=== PATIENT | male | born 1985 | race African-American/Black ===

== ENCOUNTER 2018-09-23 12:48 | Emergency (ER) | payer BC ==
--- NOTE | 2018-09-23 13:14 | EDPHYS ---
Physician Documentation [facility] Name: Mika Alvarado Age: 33 yrs Sex: Male : 1985 Arrival Date: 09/23/2018 Time: 12:51 Bed 24 Private MD: ED Physician Roly Dixon HPI: 09/23 13:09 This 33 yrs old Black Male presents to ER via Ambulatory with complaints of Testicular rn Problem, High Blood Pressure. 13:09 The patient presents with swelling. Onset: The symptoms/episode began/occurred at an rn unknown time. Severity of symptoms: At their worst the symptoms were mild, in the emergency department the symptoms are unchanged. The patient has not experienced similar symptoms in the past. REports first noticed swelling/mass to inferior right scrotum 1 week ago, does not hurt, no fever, no drainage, no trauma. Also reports out of BP meds. . Historical: - Allergies: 13:03 No Known Allergies; sg - Home Meds: 13:03 amlodipine 10 mg tab 1 tab once daily [Active]; sg - PMHx: 13:03 Hypertension; sg - PSHx: 13:03 None; sg - Immunization history:: Adult Immunizations up to date. - Social history:: Smoking status: Patient uses tobacco products, smokes one-half pack cigarettes per day. - Ebola Screening: : Patient negative for fever greater than or equal to 101.5 degrees Fahrenheit, and additional compatible Ebola Virus Disease symptoms Patient denies exposure to infectious person Patient denies travel to an Ebola-affected area in the 21 days before illness onset No symptoms or risks identified at this time. - Family history:: not pertinent. - Hospitalizations: : No recent hospitalization is reported. ROS: 13:09 Constitutional: Negative for fever, chills, and weight loss, Neck: Negative for injury, rn pain, and swelling, Cardiovascular: Negative for chest pain, palpitations, and edema, Respiratory: Negative for shortness of breath, cough, wheezing, and pleuritic chest pain, Abdomen/GI: Negative for abdominal pain, nausea, vomiting, diarrhea, and constipation, MS/Extremity: Negative for injury and deformity, Skin: + mass to right exterior hemiscrotum Neuro: Negative for headache, weakness, numbness, tingling, and seizure. Exam: 13:09 Constitutional: This is a well developed, well nourished patient who is awake, alert, rn and in no acute distress. Skin: Warm, dry, + 3cm linear hypertrophic skin inferior and on exterior of right hemiscrotum, no erythema Neuro: Awake and alert, GCS 15, oriented to person, place, time, and situation. Cranial nerves II-XII grossly intact. Motor strength 5/5 in all extremities. Sensory grossly intact. Cerebellar exam normal. Normal gait. Vital Signs: 13:00 BP 157 / 104; Pulse 79; Resp 18; Temp 98.3; Pulse Ox 98% on R/A; Weight 83.91 kg; sg Height 5 ft. 9 in. (175.26 cm); Pain 6/10; 13:00 Body Mass Index 27.32 (83.91 kg, 175.26 cm) sg MDM: 13:03 Patient medically screened. rn 13:09 Differential diagnosis: keloid, hypertrophic skin, HPV. Data reviewed: vital signs, rn nurses notes, and as a result, I will discharge patient. Counseling: I had a detailed discussion with the patient and/or guardian regarding: the historical points, exam findings, and any diagnostic results supporting the discharge/admit diagnosis, the need for outpatient follow up, to return to the emergency department if symptoms worsen or persist or if there are any questions or concerns that arise at home. Special discussion: I discussed with the patient/guardian in detail that at this point there is no indication for admission to the hospital. It is understood, however, that if the symptoms persist or worsen the patient needs to return immediately for re-evaluation. Based on the history and exam findings, there is no indication for further emergent testing or inpatient evaluation. I discussed with the patient/guardian the need to see the ruby rails developer for further evaluation of the symptoms. Administered Medications: No medications were administered Disposition: 09/23/18 13:13 Discharged to Home. Impression: Hypertrophic disorder of the skin, unspecified, Hypertension. - Condition is Stable. - Discharge Instructions: Hypertension. - Prescriptions for amlodipine 5 mg Oral tablet - take 1 tablet by ORAL route once daily; 60 tablet. - Medication Reconciliation Form, Thank You Letter, Antibiotic Education, Prescription Opioid Use form. - Follow up: Private Physician; When: As needed; Reason: Recheck today's complaints, Re-evaluation by your physician. - Problem is an ongoing problem. - Symptoms are unchanged. Signatures: Cornell Gandhi RN RN Roly Dixon MD MD rn Attema, Lee, RN RN la1 Corrections: (The following items were deleted from the chart) 13:03 13:03 Social history: Smoking status: Patient/guardian denies using tobacco, [facility] 13:20 13:13 09/23/2018 13:13 Discharged to Home. Impression: Hypertrophic disorder of the la1 skin, unspecified; Hypertension. Condition is Stable. Forms are Medication Reconciliation Form, Thank You Letter, Antibiotic Education, Prescription Opioid Use. Follow up: Private Physician; When: As needed; Reason: Recheck today's complaints, Re-evaluation by your physician. Problem is an ongoing problem. Symptoms are unchanged. rn
--- NOTE | 2018-09-23 13:14 | ER ---
Nurse's Notes [facility] Name: Mika Alvarado Age: 33 yrs Sex: Male : 1985 Arrival Date: 09/23/2018 Time: 12:51 Bed 24 Private MD: Diagnosis: Hypertrophic disorder of the skin, unspecified;Hypertension Presentation: 09/23 13:00 Presenting complaint: Patient states: Mass near the right testicle, denies any drainage sg or discharge, reports the area to be hard and painful, denies N/V/D/Fever, reports having High Blood pressure as well having a prescription for Amlodipine but not taking it due to lack of refills. Transition of care: patient was not received from another setting of care. Onset of symptoms was September 23, 2018. Risk Assessment: Do you want to hurt yourself or someone else? Patient reports no desire to harm self or others. Initial Sepsis Screen: Does the patient meet any 2 criteria? No. Patient's initial sepsis screen is negative. Does the patient have a suspected source of infection? No. Patient's initial sepsis screen is negative. Care prior to arrival: None. 13:00 Method Of Arrival: Ambulatory sg 13:00 Acuity: MAMADOU 3 sg Historical: - Allergies: 13:03 No Known Allergies; sg - Home Meds: 13:03 amlodipine 10 mg tab 1 tab once daily [Active]; sg - PMHx: 13:03 Hypertension; sg - PSHx: 13:03 None; sg - Immunization history:: Adult Immunizations up to date. - Social history:: Smoking status: Patient uses tobacco products, smokes one-half pack cigarettes per day. - Ebola Screening: : Patient negative for fever greater than or equal to 101.5 degrees Fahrenheit, and additional compatible Ebola Virus Disease symptoms Patient denies exposure to infectious person Patient denies travel to an Ebola-affected area in the 21 days before illness onset No symptoms or risks identified at this time. - Family history:: not pertinent. - Hospitalizations: : No recent hospitalization is reported. Screenin:11 Abuse screen: Denies threats or abuse. Denies injuries from another. Nutritional la1 screening: No deficits noted. Tuberculosis screening: No symptoms or risk factors identified. Fall Risk None identified. Assessment: 13:11 General: Appears in no apparent distress. Behavior is calm, cooperative. Pain: Denies la1 pain. Neuro: No deficits noted. Cardiovascular: Denies chest pain, shortness of breath. Respiratory: No deficits noted. : hypertrophic growth noted to right groin area without redness/pain. Vital Signs: 13:00 BP 157 / 104; Pulse 79; Resp 18; Temp 98.3; Pulse Ox 98% on R/A; Weight 83.91 kg; sg Height 5 ft. 9 in. (175.26 cm); Pain 6/10; 13:00 Body Mass Index 27.32 (83.91 kg, 175.26 cm) ED Course: 12:51 Patient arrived in ED. rg4 12:57 Zaki De RN is Primary Nurse. la1 13:00 Arm band placed on. 13:01 Triage completed. 13:03 Roly Dixon MD is Attending Physician. rn 13:12 Call light in reach. la1 13:12 No provider procedures requiring assistance completed. Patient did not have IV access la1 during this emergency room visit. Administered Medications: No medications were administered Outcome: 13:12 Discharged to home ambulatory. la1 13:12 Condition: stable 13:12 Discharge instructions given to patient, Instructed on discharge instructions, follow up and referral plans. medication usage, Demonstrated understanding of instructions, follow-up care, medications, Prescriptions given X 1. 13:13 Discharge ordered by . rn 13:20 Patient left the ED. la1 Signatures: Cornell Gandhi RN SATHYA Roly Dixon MD MD rn Attema, Lee, RN RN laMalka Kendrick rg4 Corrections: (The following items were deleted from the chart) 13:03 13:03 Social history: Smoking status: Patient/guardian denies using tobacco, [facility]
== END 2018-09-23 13:20 | disposition home or self-care (01) ==
LOC: ER 12:48
DX: L91.9 Hypertrophic disorder of the skin, unspecified (principal); I10 Essential (primary) hypertension; F17.210 Nicotine dependence, cigarettes, uncomplicated
CPT/HCPCS: 99282

== ENCOUNTER 2019-05-22 18:00 | Emergency (ER) | payer BC, SELFPAY ==
--- NOTE | 2019-05-22 19:37 | ER ---
Nurse's Notes [facility] Name: Mika Alvarado Age: 33 yrs Sex: Male : 1985 Arrival Date: 05/22/2019 Time: 18:03 Bed 28 Private MD: Diagnosis: Cutaneous abscess of face Presentation: 05/22 18:11 Presenting complaint: Patient states: forehead abscess started Tuesday. Transition of sv care: patient was not received from another setting of care. Onset of symptoms was May 20, 2019. Risk Assessment: Do you want to hurt yourself or someone else? Patient reports no desire to harm self or others. Care prior to arrival: None. 18:11 Method Of Arrival: Ambulatory sv 18:11 Acuity: MAMADOU 3 sv 20:20 Initial Sepsis Screen: Does the patient meet any 2 criteria? No. Patient's initial aj1 sepsis screen is negative. Does the patient have a suspected source of infection? No. Patient's initial sepsis screen is negative. Triage Assessment: 18:11 General: Appears in no apparent distress. comfortable, Behavior is calm, cooperative, sv appropriate for age. Neuro: Level of Consciousness is awake, alert, obeys commands, Gait is steady. Respiratory: Respiratory effort is even, unlabored, Respiratory pattern is regular, symmetrical. Derm: Abscess located on forehead has no drainage, is red, is raised. Historical: - Allergies: 18:11 No Known Allergies; sv - PMHx: 18:11 Hypertension; sv - PSHx: 18:11 None; sv - Immunization history:: Adult Immunizations up to date. - Social history:: Smoking status: unknown. - Ebola Screening: : Patient denies travel to an Ebola-affected area in the 21 days before illness onset. Screenin:25 Abuse screen: Denies threats or abuse. Denies injuries from another. Nutritional aj1 screening: No deficits noted. Tuberculosis screening: No symptoms or risk factors identified. 20:20 Fall Risk None identified. aj1 Assessment: 18:25 General: Appears in no apparent distress. comfortable, Behavior is calm, cooperative, aj1 appropriate for age. Pain: Complains of pain in forehead Pain does not radiate. Pain currently is 6 out of 10 on a pain scale. Neuro: Level of Consciousness is awake, alert, obeys commands, Oriented to person, place, time, situation. Cardiovascular: Patient's skin is warm and dry. Respiratory: Airway is patent Respiratory effort is even, unlabored, Respiratory pattern is regular, symmetrical. GI: No signs and/or symptoms were reported involving the gastrointestinal system. : No signs and/or symptoms were reported regarding the genitourinary system. EENT: No signs and/or symptoms were reported regarding the EENT system. Derm: Abscess located on forehead is half dollar sized, is red, is raised. Musculoskeletal: No signs and/or symptoms reported regarding the musculoskeletal system. Circulation, motion, and sensation intact. Vital Signs: 18:11 Pulse 96; Resp 18; Temp 99.2; Pulse Ox 100% ; Weight 97.52 kg; Height 5 ft. 8 in. sv (172.72 cm); 18:15 BP 138 / 100; aj1 19:15 BP 141 / 100; Pulse 88; Resp 18; Pulse Ox 97% on R/A; aj1 20:00 BP 140 / 99; Pulse 87; Resp 18; Pulse Ox 99% on R/A; aj1 18:11 Body Mass Index 32.69 (97.52 kg, 172.72 cm) sv ED Course: 18:03 Patient arrived in ED. mr 18:04 Kathy Barahona FNP-C [facility]. snw 18:04 Joseph Fenton MD is Attending Physician. snw 18:11 Triage completed. sv 18:12 Arm band placed on. sv 18:18 Vicki Mccabe, RN is Primary Nurse. aj1 18:25 Patient has correct armband on for positive identification. Bed in low position. Call aj1 light in reach. Side rails up X 1. 18:25 No provider procedures requiring assistance completed. aj1 20:20 IV discontinued, intact, bleeding controlled, No redness/swelling at site. Pressure aj1 dressing applied. Administered Medications: 19:45 Drug: Doxycycline 100 mg Route: PO; aj1 Outcome: 19:36 Discharge ordered by . snw 20:21 Discharged to home ambulatory. aj1 20:21 Condition: good 20:21 Discharge instructions given to patient, Instructed on discharge instructions, follow up and referral plans. medication usage, Demonstrated understanding of instructions, follow-up care, medications, Prescriptions given X 1. 20:21 Patient left the ED. aj1 Signatures: Vicki Mccabe, RN RN aj1 Nola Stacy, RN RN sv Kathy Barahona, CHEMICAL ENGRAVER-C CHEMICAL ENGRAVER-Csnw Soraya Osorio mr
--- NOTE | 2019-05-22 19:37 | EDPHYS ---
Physician Documentation [facility] Name: Mika Alvarado Age: 33 yrs Sex: Male : 1985 Arrival Date: 05/22/2019 Time: 18:03 Bed 28 Private MD: ED Physician Joseph Fenton HPI: 05/22 19:54 This 33 yrs old Black Male presents to ER via Ambulatory with complaints of Abscess. snw 19:54 The patient presents with an abscess of the forehead. Description: The affected area is snw small, localized, erythematous, swollen, tense. Onset: The symptoms/episode began/occurred suddenly, 3 day(s) ago, and became persistent. Possible cause(s): unknown. Modifying factors: the symptoms are aggravated by touching, sweating today at work. Severity of symptoms: At their worst the symptoms were moderate. The patient has not experienced similar symptoms in the past. The patient has not recently seen a physician. Historical: - Allergies: 18:11 No Known Allergies; sv - PMHx: 18:11 Hypertension; sv - PSHx: 18:11 None; sv - Immunization history:: Adult Immunizations up to date. - Social history:: Smoking status: unknown. - Ebola Screening: : Patient denies travel to an Ebola-affected area in the 21 days before illness onset. ROS: 19:53 Constitutional: Negative for fever, chills, and weight loss, Eyes: Negative for injury, snw pain, redness, and discharge, ENT: Negative for injury, pain, and discharge, Neck: Negative for injury, pain, and swelling, Cardiovascular: Negative for chest pain, palpitations, and edema, Respiratory: Negative for shortness of breath, cough, wheezing, and pleuritic chest pain, Abdomen/GI: Negative for abdominal pain, nausea, vomiting, diarrhea, and constipation, Back: Negative for injury and pain, : Negative for injury, bleeding, discharge, and swelling, MS/Extremity: Negative for injury and deformity, Skin: Negative for injury, rash, and discoloration, + sore to center of forehead Neuro: Negative for headache, weakness, numbness, tingling, and seizure, Psych: Negative for depression, anxiety, suicide ideation, homicidal ideation, and hallucinations. Exam: 19:50 Constitutional: This is a well developed, well nourished patient who is awake, alert, snw and in no acute distress. Eyes: Pupils equal round and reactive to light, extra-ocular motions intact. Lids and lashes normal. Conjunctiva and sclera are non-icteric and not injected. Cornea within normal limits. Periorbital areas with no swelling, redness, or edema. ENT: Nares patent. No nasal discharge, no septal abnormalities noted. Tympanic membranes are normal and external auditory canals are clear. Oropharynx with no redness, swelling, or masses, exudates, or evidence of obstruction, uvula midline. Mucous membranes moist. Neck: Trachea midline, no thyromegaly or masses palpated, and no cervical lymphadenopathy. Supple, full range of motion without nuchal rigidity, or vertebral point tenderness. No Meningismus. Chest/axilla: Normal chest wall appearance and motion. Nontender with no deformity. No lesions are appreciated. Cardiovascular: Regular rate and rhythm with a normal S1 and S2. No gallops, murmurs, or rubs. Normal PMI, no JVD. No pulse deficits. Respiratory: Lungs have equal breath sounds bilaterally, clear to auscultation and percussion. No rales, rhonchi or wheezes noted. No increased work of breathing, no retractions or nasal flaring. Abdomen/GI: Soft, non-tender, with normal bowel sounds. No distension or tympany. No guarding or rebound. No evidence of tenderness throughout. Back: No spinal tenderness. No costovertebral tenderness. Full range of motion. Skin: Warm, dry with normal turgor. Normal color with no rashes, no lesions, and no evidence of cellulitis. MS/ Extremity: Pulses equal, no cyanosis. Neurovascular intact. Full, normal range of motion. Neuro: Awake and alert, GCS 15, oriented to person, place, time, and situation. Cranial nerves II-XII grossly intact. Motor strength 5/5 in all extremities. Sensory grossly intact. Cerebellar exam normal. Normal gait. 19:50 Head/face: Noted is abscess to central forehead, tense. Vital Signs: 18:11 Pulse 96; Resp 18; Temp 99.2; Pulse Ox 100% ; Weight 97.52 kg; Height 5 ft. 8 in. sv (172.72 cm); 18:15 BP 138 / 100; aj1 19:15 BP 141 / 100; Pulse 88; Resp 18; Pulse Ox 97% on R/A; aj1 20:00 BP 140 / 99; Pulse 87; Resp 18; Pulse Ox 99% on R/A; aj1 18:11 Body Mass Index 32.69 (97.52 kg, 172.72 cm) sv Procedures: 19:50 I \T\ D: Incision and drainage was performed for an abscess of the central forehead snw Prepped with Betadine, Anesthetized with nothing. Incised with 18 gauge needle. Drained large amount purulent fluid. Dressing: None the patient tolerated the procedure well. MDM: 18:39 Patient medically screened. snw 19:52 Data reviewed: vital signs, nurses notes. Data interpreted: Pulse oximetry: on room air snw is 100 %. Interpretation: normal. Counseling: I had a detailed discussion with the patient and/or guardian regarding: the historical points, exam findings, and any diagnostic results supporting the discharge/admit diagnosis, the need for outpatient follow up, for definitive care, to return to the emergency department if symptoms worsen or persist or if there are any questions or concerns that arise at home. Special discussion: Based on the history and exam findings, there is no indication for further emergent testing or inpatient evaluation. I discussed with the patient/guardian the need to see the primary care provider for further evaluation of the symptoms. Administered Medications: 19:45 Drug: Doxycycline 100 mg Route: PO; aj1 Disposition: 05/22/19 19:36 Discharged to Home. Impression: Cutaneous abscess of face. - Condition is Stable. - Discharge Instructions: Skin Abscess, Wound Care, Heat Therapy. - Prescriptions for Doxycycline Hyclate 100 mg Oral Tablet - take 1 tablet by ORAL route every 12 hours; 20 tablet. - Work release form, Medication Reconciliation Form, Thank You Letter, Antibiotic Education, Prescription Opioid Use form. - Follow up: Private Physician; When: 2 - 3 days; Reason: Recheck today's complaints, Continuance of care, Re-evaluation by your physician. Follow up: Emergency Department; When: As needed; Reason: Worsening of condition. Addendum: 05/24/2019 07:26 Co-signature as Attending Physician, Joseph Fenton MD. g s Signatures: Vicki Mccabe RN RN aj1 Nola Stacy RN RN Kathy Barahona, LEONID-C THEATRICAL SCENIC DESIGNER-Csnw Joseph Fenton MD MD gs Corrections: (The following items were deleted from the chart) 05/22 20:21 19:36 05/22/2019 19:36 Discharged to Home. Impression: Cutaneous abscess of face. aj1 Condition is Stable. Forms are Medication Reconciliation Form, Thank You Letter, Antibiotic Education, Prescription Opioid Use. Follow up: Private Physician; When: 2 - 3 days; Reason: Recheck today's complaints, Continuance of care, Re-evaluation by your physician. Follow up: Emergency Department; When: As needed; Reason: Worsening of condition. snw
[2019-05-22] MEDS ORDERED: DOXYCYCLINE 100 MG CAP PO ONE (19:46)
[2019-05-22 20:58] VITALS: TEMP 99.2; O2SAT 100
== END 2019-05-22 20:21 | disposition home or self-care (01) ==
LOC: ER 18:00
PROC: 0J910ZZ Drainage of Face Subcutaneous Tissue and Fascia, Open Approach (ICD-10-PCS; principal; 2019-05-22)
DX: L02.01 Cutaneous abscess of face (principal)
CPT/HCPCS: 99283

== ENCOUNTER 2019-05-23 08:05 | Emergency (ER) | payer SELFPAY ==
[2019-05-23] MEDS ORDERED: LIDOCAINE 1% W/EPI 1:100,000 MDV 50 ML VIAL ONE (08:53)
--- NOTE | 2019-05-23 09:28 | ER ---
Nurse's Notes [facility] Name: Mika Alvarado Age: 33 yrs Sex: Male : 1985 Arrival Date: 05/23/2019 Time: 08:07 Bed 13 Private MD: Diagnosis: Cutaneous abscess of head [any part, except face]-forehead Presentation: 05/23 08:14 Presenting complaint: Patient states: i came here yesterday and had a boil lanced on my tw2 forehead, this morning i woke up with swelling to the bridge of my nose and under my eyes and i am congested. Transition of care: patient was not received from another setting of care. Onset of symptoms was May 23, 2019. Risk Assessment: Do you want to hurt yourself or someone else? Patient reports no desire to harm self or others. Initial Sepsis Screen: Does the patient meet any 2 criteria? No. Patient's initial sepsis screen is negative. Does the patient have a suspected source of infection? No. Patient's initial sepsis screen is negative. Care prior to arrival: None. 08:14 Method Of Arrival: Ambulatory tw2 08:14 Acuity: MAMADOU 3 tw2 Triage Assessment: 08:24 General: Appears in no apparent distress. Behavior is calm, cooperative, appropriate tw2 for age. Pain: Complains of pain in forehead, right eye, right cheek, nose, left cheek and left eye. EENT: swelling noted to forehead, under eyes and bridge of nose. Reports nasal congestion. Neuro: Level of Consciousness is awake, alert, obeys commands, Oriented to person, place, time, situation. Cardiovascular: Heart tones S1 S2 Patient's skin is warm and dry. Respiratory: Airway is patent Respiratory effort is even, unlabored, Respiratory pattern is regular, symmetrical, Breath sounds are clear bilaterally. Denies shortness of breath. GI: Abdomen is flat, Bowel sounds present X 4 quads. : No signs and/or symptoms were reported regarding the genitourinary system. Derm: Abscess located on forehead. Musculoskeletal: Range of motion: intact in all extremities. Historical: - Allergies: 08:24 No Known Drug Allergies; tw2 - Home Meds: 08:24 amlodipine 10 mg tab 1 tab once daily [Active]; tw2 - PMHx: 08:24 Hypertension; tw2 - PSHx: 08:24 None; tw2 - Immunization history:: Adult Immunizations. - Social history:: Smoking status: . - Ebola Screening: : Patient denies travel to an Ebola-affected area in the 21 days before illness onset. Screenin:26 Abuse screen: Denies threats or abuse. Nutritional screening: No deficits noted. tw2 Tuberculosis screening: No symptoms or risk factors identified. Fall Risk None identified. Assessment: 08:26 Reassessment: see triage assessment. tw2 09:47 Reassessment: Patient appears in no apparent distress at this time. No changes from tw2 previously documented assessment. Patient and/or family updated on plan of care and expected duration. Pain level reassessed. Patient is alert, oriented x 3, equal unlabored respirations, skin warm/dry/pink. Vital Signs: 08:15 BP 151 / 112; Pulse 89; Resp 18; Temp 98.6(O); Pulse Ox 100% on R/A; Weight 97.52 kg tw2 (R); Height 5 ft. 10 in. (177.80 cm) (R); Pain 5/10; 09:48 BP 149 / 111; Pulse 95; Resp 17; Pulse Ox 98% on R/A; tw2 08:15 Body Mass Index 30.85 (97.52 kg, 177.80 cm) tw2 ED Course: 08:07 Patient arrived in ED. as 08:10 Cheng Calderón PA is PHCP. cp 08:10 Harris Pacheco MD is Attending Physician. cp 08:14 Rachana Chiu, SATHYA is Primary Nurse. tw2 08:14 Bed in low position. Call light in reach. Adult w/ patient. Pulse ox on. NIBP on. tw2 08:15 Triage completed. tw2 08:16 Arm band placed on. tw2 09:26 Wound culture swab sent to lab. dh3 09:48 No provider procedures requiring assistance completed. Assist provider with I \T\ D: of tw2 an abscess on Set up I\T\D tray. Performed by Cheng TEMPLETON Culture sent to lab. Dressing with bandaid Patient tolerated poorly. Patient did not have IV access during this emergency room visit. Administered Medications: 08:55 Drug: Lidocaine-Epinephrine -1%: (1:100,000) 20 ml {Note: by JARETH Norris.} Volume: 20 tw2 ml; Route: Infiltration; 09:45 Drug: Bactrim - Trimethoprim-Sulfamethoxazole (40mg - 200mg / 5mL) 1 tsp Route: PO; tw2 09:46 Follow up: Response: No adverse reaction tw2 Outcome: 09:27 Discharge ordered by . zaire 09:48 Discharged to home ambulatory, with significant other. tw2 09:48 Condition: stable 09:48 Discharge instructions given to patient, significant other, Instructed on discharge instructions, follow up and referral plans. medication usage, wound care, Demonstrated understanding of instructions, follow-up care, medications, wound care, Prescriptions given X 1. 09:49 Patient left the ED. tw2 Signatures: Kaylen Palacio Corey, PA PA cp Wise, Tara, RN RN tw2 Deandra Carcamo 3
--- NOTE | 2019-05-23 09:29 | EDPHYS ---
Physician Documentation [facility] Name: Mika Alvarado Age: 33 yrs Sex: Male : 1985 Arrival Date: 05/23/2019 Time: 08:07 Bed 13 Private MD: ED Physician Harris Pacheco HPI: 05/23 08:45 This 33 yrs old Black Male presents to ER via Ambulatory with complaints of Facial cp Swelling. 08:45 The patient presents with an abscess of the forehead, the patient presents with a cp swollen area of the forehead. The patient has been recently seen at the [facility] Emergency Department, yesterday, for similar complaints partially drained after area was pierced by needle. Patient reports he was given antibiotic while in ED last night but has not been able to roller picker RX from pharmacy yet. Historical: - Allergies: 08:24 No Known Drug Allergies; tw2 - Home Meds: 08:24 amlodipine 10 mg tab 1 tab once daily [Active]; tw2 - PMHx: 08:24 Hypertension; tw2 - PSHx: 08:24 None; tw2 - Immunization history:: Adult Immunizations. - Social history:: Smoking status: . - Ebola Screening: : Patient denies travel to an Ebola-affected area in the 21 days before illness onset. ROS: 08:55 Constitutional: Negative for body aches, chills, fever, poor PO intake. cp 08:55 Eyes: Negative for injury, pain, redness, and discharge. cp 08:55 ENT: Negative for drainage from ear(s), ear pain, difficulty swallowing, difficulty handling secretions. 08:55 Cardiovascular: Negative for chest pain. 08:55 Respiratory: Negative for cough. 08:55 Abdomen/GI: Negative for abdominal pain. 08:55 Skin: Positive for swelling, of the forehead. 08:55 Neuro: Negative for altered mental status, headache. 08:55 All other systems are negative. Exam: 09:00 Constitutional: The patient appears in no acute distress, alert, awake, non-toxic, well cp developed, well nourished. 09:00 Head/face: Noted is swelling, that is mild, of the forehead, right cheek, nose and cp left cheek, tenderness, that is mild, of the forehead. 09:00 Eyes: Pupils: equal, round, and reactive to light and accomodation, Extraocular movements: intact throughout, Conjunctiva: normal, no exudate, no injection, Lids and lashes: appear normal, bilaterally. 09:00 ENT: External ear(s): are unremarkable, Nose: is normal, Mouth: Lips: moist, Oral mucosa: pink and intact, moist, Posterior pharynx: is normal, airway is patent, no erythema, no exudate. 09:00 Chest/axilla: Inspection: normal, Palpation: is normal, no crepitus, no tenderness. 09:00 Cardiovascular: Rate: normal, Rhythm: regular. 09:00 Respiratory: the patient does not display signs of respiratory distress, Respirations: normal, no use of accessory muscles, no retractions. 09:00 Abdomen/GI: Inspection: abdomen appears normal, Bowel sounds: normal, in all quadrants. 09:00 Skin: abscess, that is small, of the forehead. Vital Signs: 08:15 BP 151 / 112; Pulse 89; Resp 18; Temp 98.6(O); Pulse Ox 100% on R/A; Weight 97.52 kg tw2 (R); Height 5 ft. 10 in. (177.80 cm) (R); Pain 5/10; 09:48 BP 149 / 111; Pulse 95; Resp 17; Pulse Ox 98% on R/A; tw2 08:15 Body Mass Index 30.85 (97.52 kg, 177.80 cm) tw2 Procedures: 09:30 I \T\ D: Incision and drainage was performed for an abscess of the forehead Prepped with Betadine, Anesthetized with Incised with 18 gauge needle. Drained purulent fluid. Cultures obtained. Dressing: the patient tolerated the procedure well. MDM: 08:19 Patient medically screened. cp 08:45 Differential diagnosis: abscess, cellulitis, sepsis, cyst. cp 09:26 Data reviewed: vital signs, nurses notes, and as a result, I will discharge patient. cp 09:26 Counseling: I had a detailed discussion with the patient and/or guardian regarding: the cp historical points, exam findings, and any diagnostic results supporting the discharge/admit diagnosis, to return to the emergency department if symptoms worsen or persist or if there are any questions or concerns that arise at home. 09:26 Response to treatment: the patient's symptoms have markedly improved after treatment, cp and as a result, I will discharge patient. 05/23 08:40 Order name: Wound Culture cp 05/23 08:40 Order name: I\T\D Setup; Complete Time: 08:53 cp Administered Medications: 08:55 Drug: Lidocaine-Epinephrine -1%: (1:100,000) 20 ml {Note: by JARETH Norris.} Volume: 20 tw2 ml; Route: Infiltration; 09:45 Drug: Bactrim - Trimethoprim-Sulfamethoxazole (40mg - 200mg / 5mL) 1 tsp Route: PO; tw2 09:46 Follow up: Response: No adverse reaction tw2 Disposition: 05/24 08:52 Co-signature as Attending Physician, Harris Pacheco MD I agree with the assessment and kdr plan of care. Disposition: 05/23/19 09:27 Discharged to Home. Impression: Cutaneous abscess of head [any part, except face] - forehead. - Condition is Stable. - Discharge Instructions: Skin Abscess, Incision and Drainage, Form - Excuse from Work, School, or Physical Activity. - Prescriptions for Bactrim DS 800- 160 mg Oral Tablet - take 1 tablet by ORAL route every 12 hours for 10 days; 20 tablet. - Medication Reconciliation Form, Thank You Letter, Antibiotic Education, Prescription Opioid Use, Work release form, Family Work Release form. - Follow up: Private Physician; When: 48 Hours; Reason: Recheck today's complaints. - Problem is new. - Symptoms have improved. Signatures: Dispatcher [employer] EDKS Harris Pacheco MD MD [facility] Cheng Calderón PA PA cp Wise, Tara, RN RN tw2 Corrections: (The following items were deleted from the chart) 05/23 09:49 09:27 05/23/2019 09:27 Discharged to Home. Impression: Cutaneous abscess of head [any tw2 part, except face] - forehead. Condition is Stable. Forms are Medication Reconciliation Form, Thank You Letter, Antibiotic Education, Prescription Opioid Use. Follow up: Private Physician; When: 48 Hours; Reason: Recheck today's complaints. Problem is new. Symptoms have improved. cp
[2019-05-23] MEDS ORDERED: SULFAMETH/TRIMETHOPRIM 240 MG/30 ML UDBOT ONE (09:44)
[2019-05-23] MEDS ORDERED: SMZ./TMP. 800/160 MG TABLET ONE (09:45)
[2019-05-23 10:46] VITALS: TEMP 98.6
[2019-05-23 10:48] VITALS: BP 149/111; O2SAT 98
== END 2019-05-23 09:49 | disposition home or self-care (01) ==
LOC: ER 08:05
PROC: 0J910ZZ Drainage of Face Subcutaneous Tissue and Fascia, Open Approach (ICD-10-PCS; principal; 2019-05-23)
DX: L02.01 Cutaneous abscess of face (principal); I10 Essential (primary) hypertension
CPT/HCPCS: 87070; 87205; 99284

== ENCOUNTER 2019-11-04 18:08 | Emergency (ER) | payer SELFPAY ==
[2019-11-04] MEDS ORDERED: LIDOCAINE 1% W/EPI 1:100,000 MDV 20 ML VIAL ONE (19:33)
--- NOTE | 2019-11-04 20:10 | ER ---
Nurse's Notes [facility] Name: Mika Alvarado Age: 34 yrs Sex: Male : 1985 Arrival Date: 11/04/2019 Time: 18:08 Bed 18 Private MD: Diagnosis: Cutaneous abscess of face Presentation: 11/03 18:43 Chief complaint: Patient states: Swelling to forehead that started Ramón, reports pain ph that radiates behind L eye, chills and nausea. Coronavirus screen: The patient has NOT traveled to a country currently being monitored by the [facility] within the last 14 days. The patient has NOT had contact with any known and/or suspected case of coronavirus. Ebola Screen: No symptoms or risks identified at this time. Initial Sepsis Screen: Does the patient meet any 2 criteria? No. Patient's initial sepsis screen is negative. Does the patient have a suspected source of infection? No. Patient's initial sepsis screen is negative. Risk Assessment: Do you want to hurt yourself or someone else? Patient reports no desire to harm self or others. 18:43 Method Of Arrival: Ambulatory ph 18:43 Acuity: MAMADOU 4 ph 19:15 Onset of symptoms was November 01, 2019. wh Historical: - Allergies: 18:49 No Known Allergies; ph - PMHx: 18:49 Hypertension; ph - PSHx: 18:49 None; ph - Immunization history:: Adult Immunizations unknown. - Social history:: Smoking status: Patient reports the use of cigarette tobacco products, denies chronic smoking, but will smoke occasionally, Patient/guardian denies using alcohol, street drugs, The patient lives with family. - Family history:: not pertinent. Screenin:32 Abuse screen: Denies threats or abuse. Denies injuries from another. Nutritional wh screening: No deficits noted. Tuberculosis screening: No symptoms or risk factors identified. Fall Risk None identified. Assessment: 19:15 General: Appears in no apparent distress. Behavior is calm, cooperative, appropriate wh for age. Pain: Complains of pain in forehead. Neuro: Level of Consciousness is awake, alert, obeys commands, Oriented to person, place, time, situation, Appropriate for age. Cardiovascular: Capillary refill < 3 seconds. Respiratory: Airway is patent Respiratory effort is even, unlabored, Respiratory pattern is regular, symmetrical. GI: Abdomen is flat, non-distended. : No signs and/or symptoms were reported regarding the genitourinary system. EENT: No signs and/or symptoms were reported regarding the EENT system. Derm: abscess in forehead. Musculoskeletal: Circulation, motion, and sensation intact. Vital Signs: 18:43 BP 138 / 99; Pulse 90; Resp 18; Temp 98.7; Pulse Ox 100% on R/A; Weight 95.25 kg; ph Height 5 ft. 8 in. (172.72 cm); Pain 7/10; 19:34 BP 141 / 87; Pulse 73; Resp 18; Pulse Ox 100% on R/A; wh 18:43 Body Mass Index 31.93 (95.25 kg, 172.72 cm) ED Course: 18:08 Patient arrived in ED. ag5 18:48 Triage completed. 18:49 Arm band placed on Patient placed in an exam room. 19:13 Helena Caban MD is Attending Physician. ma2 19:31 Lj Walden is Primary Nurse. 19:33 Patient has correct armband on for positive identification. Bed in low position. Call light in reach. Side rails up X 1. Pulse ox on. NIBP on. 19:50 Assist provider with I \T\ D: of an abscess on forehead Set up I\T\D tray. Performed by Helena Caban MD Dressing with bandaid Patient tolerated well. Patient did not have IV access during this emergency room visit. Administered Medications: 20:12 Drug: [place] 5 mg-325 mg 1 tabs Route: PO; 20:24 Follow up: Response: No adverse reaction; Pain is decreased; RASS: Alert and Calm (0) Outcome: 20:09 Discharge ordered by . ma2 20:24 Discharged to home ambulatory, with family. 20:24 Condition: stable 20:24 Discharge instructions given to patient, family, Instructed on discharge instructions, follow up and referral plans. medication usage, wound care, Demonstrated understanding of instructions, follow-up care, medications, wound care, POC Prescriptions given X 2. 20:24 Patient left the ED. Signatures: Tanvi Negron RN RN Lj Walden Alzahri, Mohammad, MD MD ma2 Hubert, Ajare ag5
--- NOTE | 2019-11-04 20:10 | EDPHYS ---
Physician Documentation [facility] Name: Mika Alvarado Age: 34 yrs Sex: Male : 1985 Arrival Date: 11/04/2019 Time: 18:08 Bed 18 Private MD: ED Physician Helena Caban HPI: 11/03 20:05 This 34 yrs old Black Male presents to ER via Ambulatory with complaints of Facial ma2 Swelling. 20:05 The patient or guardian reports forehead abscess. The complaints affect the forehead. ma2 Context of injury: The problem was sustained at home, resulted from. Associated signs and symptoms: Pertinent positives: Pertinent negatives: patient denies any alcohol consumption, double vision, incontinence, nausea, vomiting, generalized weakness. Severity of symptoms: At their worst the symptoms were moderate, in the emergency department the symptoms are unchanged. The patient has experienced similar episodes in the past. Historical: - Allergies: 18:49 No Known Allergies; ph - PMHx: 18:49 Hypertension; ph - PSHx: 18:49 None; ph - Immunization history:: Adult Immunizations unknown. - Social history:: Smoking status: Patient reports the use of cigarette tobacco products, denies chronic smoking, but will smoke occasionally, Patient/guardian denies using alcohol, street drugs, The patient lives with family. - Family history:: not pertinent. ROS: 20:05 Constitutional: Negative for fever, chills, and weight loss, Eyes: Negative for injury, ma2 pain, redness, and discharge, Neck: Negative for injury, pain, and swelling, Cardiovascular: Negative for chest pain, palpitations, and edema, Respiratory: Negative for shortness of breath, cough, wheezing, and pleuritic chest pain, Abdomen/GI: Negative for abdominal pain, nausea, diarrhea, and constipation, Back: Negative for injury and pain, MS/Extremity: Negative for injury and deformity, Skin: Negative for injury, rash, and discoloration, Neuro: Negative for headache, weakness, numbness, tingling, and seizure, Psych: Negative for depression, anxiety, suicide ideation, homicidal ideation, and hallucinations. 20:05 All other systems are negative. Exam: 20:05 Constitutional: This is a well developed, well nourished patient who is awake, alert, ma2 and in no acute distress. Head/Face: abscess 1 cm on forehead, no skin induration, Normocephalic, atraumatic. Eyes: Pupils equal round and reactive to light, extra-ocular motions intact. Lids and lashes normal. Conjunctiva and sclera are non-icteric and not injected. Cornea within normal limits. Periorbital areas with no swelling, redness, or edema. ENT: Nares patent. No nasal discharge, no septal abnormalities noted. Tympanic membranes are normal and external auditory canals are clear. Oropharynx with no redness, swelling, or masses, exudates, or evidence of obstruction, uvula midline. Mucous membranes moist. Neck: Trachea midline, no thyromegaly or masses palpated, and no cervical lymphadenopathy. Supple, full range of motion without nuchal rigidity, or vertebral point tenderness. No Meningismus. Chest/axilla: Normal chest wall appearance and motion. Nontender with no deformity. No lesions are appreciated. Cardiovascular: Regular rate and rhythm with a normal S1 and S2. No gallops, murmurs, or rubs. Normal PMI, no JVD. No pulse deficits. Respiratory: Lungs have equal breath sounds bilaterally, clear to auscultation and percussion. No rales, rhonchi or wheezes noted. No increased work of breathing, no retractions or nasal flaring. Abdomen/GI: Soft, non-tender, with normal bowel sounds. No distension or tympany. No guarding or rebound. No evidence of tenderness throughout. Skin: Warm, dry with normal turgor. Normal color with no rashes, no lesions, and no evidence of cellulitis. MS/ Extremity: Pulses equal, no cyanosis. Neurovascular intact. Full, normal range of motion. Neuro: Awake and alert, GCS 15, oriented to person, place, time, and situation. Cranial nerves II-XII grossly intact. Motor strength 5/5 in all extremities. Sensory grossly intact. Cerebellar exam normal. Normal gait. Vital Signs: 18:43 BP 138 / 99; Pulse 90; Resp 18; Temp 98.7; Pulse Ox 100% on R/A; Weight 95.25 kg; ph Height 5 ft. 8 in. (172.72 cm); Pain 7/10; 19:34 BP 141 / 87; Pulse 73; Resp 18; Pulse Ox 100% on R/A; wh 18:43 Body Mass Index 31.93 (95.25 kg, 172.72 cm) ph Procedures: 20:05 I \T\ D: Incision and drainage was performed for an abscess of the forehead Prepped with ma2 alcohol, Anesthetized with 5 ml's 1% Lidocaine w/ Epi. Incised with #11 blade. Drained moderate amount purulent fluid. Dressing: the patient tolerated the procedure well. MDM: 19:13 Patient medically screened. ma2 20:05 Differential diagnosis: Contusion of Hematoma on. Data reviewed: vital signs, nurses ma2 notes. Counseling: I had a detailed discussion with the patient and/or guardian regarding: the historical points, exam findings, and any diagnostic results supporting the discharge/admit diagnosis, the presence of at least one elevated blood pressure reading (>120/80) during this emergency department visit, the need for outpatient follow up. Response to treatment: the patient's symptoms have markedly improved after treatment. Administered Medications: 20:12 Drug: [place] 5 mg-325 mg 1 tabs Route: PO; 20:24 Follow up: Response: No adverse reaction; Pain is decreased; RASS: Alert and Calm (0) Disposition: 11/04/19 20:09 Discharged to Home. Impression: Cutaneous abscess of face. - Condition is Stable. - Discharge Instructions: Skin Abscess, [id number]. - Prescriptions for Augmentin 875- 125 mg Oral Tablet - take 1 tablet by ORAL route every 12 hours for 10 days; 20 tablet. Ibuprofen 800 mg Oral Tablet - take 1 tablet by ORAL route every 12 hours As needed take with food; 20 tablet. - Medication Reconciliation Form, Thank You Letter, Antibiotic Education, Prescription Opioid Use form. - Work release form (11/04/19 20:26). la1 - Follow up: Private Physician; When: Tomorrow; Reason: Continuance of care. Signatures: Tanvi Negron RN RN ph [place], Winsy Helena Caban MD MD ma2 Zaki De-Cla1 Corrections: (The following items were deleted from the chart) 20:24 20:09 11/04/2019 20:09 Discharged to Home. Impression: Cutaneous abscess of face. Condition is Stable. Prescriptions for Augmentin 875-125 mg Oral Tablet - take 1 tablet by ORAL route every 12 hours for 10 days; 20 tablet. and Forms are Medication Reconciliation Form, Thank You Letter, Antibiotic Education, Prescription Opioid Use. Follow up: Private Physician; When: Tomorrow; Reason: Continuance of care. ma2
[2019-11-04] MEDS ORDERED: HYDROCODONE/APAP 5/325 MG TAB ONE (20:12)
[2019-11-04 20:30] VITALS: TEMP 98.7; O2SAT 100
[2019-11-04 20:32] VITALS: BP 141/87
== END 2019-11-04 20:24 | disposition home or self-care (01) ==
LOC: ER 18:08
PROC: 0J910ZZ Drainage of Face Subcutaneous Tissue and Fascia, Open Approach (ICD-10-PCS; principal; 2019-11-04)
DX: L02.01 Cutaneous abscess of face (principal); I10 Essential (primary) hypertension; Z72.0 Tobacco use
CPT/HCPCS: 99284

== ENCOUNTER 2022-01-07 14:14 | Emergency (ER) | payer SELFPAY ==
--- OUTSIDE RECORDS SUMMARY | 2022-01-07 14:16 | XMS REPORT | Continuity of Care Document ---
:1985 Author Organization [facility] t Address [address] [place] [address] [address] [place] [address] Care Team Providers Name Role Phone Remedios Nowak MD Attending Clinician Problems This patient has no known problems. Allergies, Adverse Reactions, Alerts Allergy Allergy Status Severity Reaction(s) Onset Inactive Treating Comm ents Source Name Type Date Date Clinician NO KNOWN Drug Active Univers ALLERGIE Class ity of [facility] Social History Social Habit Start Date Stop Date Quantity Comments Source [facility] to SARS-CoV-2 Not sure Un iversity [facility] (event) [facility] Smoking Status Start Date Stop Date Source Unknown if ever smoked [facility] Medications Ordered Filled Start Stop Current Ordering Indication Dosage Frequency Signature Comments Components Source Medication Medication Date Date Medication? Clinician (SIG) Name Name cloNIDine 2020- No .2mg 0.2 mg, Univ ers (CATAPRES) 02-11 Oral, ity of tablet 0.2 19:15: 18:22 ONCE, 1 Jesus as mg 00 :00 dose, [facility] 02/12/20 at Branch 1415, STAT lisinopril 0 Yes [id number] 10mg Take 1 Univers 10 mg 6-16 tablet by ity of tablet 00:00: mouth at [place] 00 bedtime. [facility] naproxen 2020-0 Yes [id number] 550mg Take 1 U nivers sodium 550 6-16 tablet by ity of mg tablet 00:00: mouth 2 [place] 00 (two) Medical times [place] daily with meals. Vital Signs Vital Name Observation Time Observation Value Comments Source Systolic blood 2020-02-12 20:30:00 130 mm[Hg] Univer sity of pressure [facility] Diastolic blood 2020-02-12 20:30:00 95 mm[Hg] Unive rsity of [facility] Heart rate 2020-02-12 20:30:00 75 /min [facility] Respiratory rate 2020-02-12 20:30:00 16 /min [facility] Oxygen saturation in 2020-02-12 20:30:00 97 /min [facility] Arterial blood by [facility] Pulse oximetry [place] Body temperature 2020-02-12 17:39:00 37 Aura [facility] Body height 2020-02-12 17:39:[address] [facility] Body weight 2020-02-12 17:39:[address] [facility] BMI 2020-02-12 17:39:00 31.75 kg/m2 [facility] Procedures Procedure Date / Time Performing Clinician Source Performed BASIC METABOLIC PANEL 2020-02-12 19:37:00 Aram Nowak [facility] (NA, K, CL, CO2, Medical Branch GLUCOSE, BUN, CREATININE, CA) TROPONIN I 2020-02-12 18:29:00 Aram Nowak [facility] CBC WITH DIFFERENTIAL 2020-02-12 18:29:00 Aram Nowak [facility] NOTICE OF PRIVACY 2020-02-12 17:26:27 Doctor Unassigned, No Univ [facility] PRACTICES Name [facility] CONSENT/REFUSAL FOR 2020-02-12 17:25:57 [facility] Name Medical [place] Encounters Start End Encounter Admission Attending Care Care Encounter Source Date/Time Date/Time Type Type Clinicians Facility Department ID 2020-02-12 2020-02-12 Emergency [facility] [id number] Univers 12:27:36 16:00:00 Aram Jones [id number] [facility] [id number] [facility] [id number] [facility] 084 Branch 2020-02-12 2020-02-12 Emergency X [facility] ERT [id number] Univers 12:27:36 12:27:36 [facility] Results Test Description Test Time Test Comments Results Result Comments Source CBC WITH DIFFERENTIAL 2020-02-12 20:26:00 Test Item Value Reference Range Interpretation Comme nts WBC (test code = 6690-2) See_Comment [A utomated message] The system which ge nerated this result transmit jacquie reference range: 4.20 - 1 0.70 10*3/?L. The reference r carlos was not used to interpr et this result as normal/abnor mal. RBC (test code = 789-8) See_Comment [Au tomated message] The system which ge nerated this result transmit jacquie reference range: 4.26 - 5 .52 10*6/?L. The reference r carlos was not used to interpr et this result as normal/abnor mal. HGB (test code = 718-7) 14.5 g/dL 12.2-16.4 HCT (test code = 4544-3) 40.6 % 38.4-49.3 MCV (test code = 787-2) 91.2 fL 81.7-95.6 MCH (test code = 785-6) 32.6 pg 26.1-32.7 MCHC (test code = 786-4) 35.7 g/dL 31.2-35 H RDW-SD (test code = 25459-7) 46.5 fL 38.5-51.6 RDW-CV (test code = 788-0) 13.8 % 12.1-15.4 PLT (test code = 777-3) See_Comment [Au tomated message] The system which ge nerated this result transmit jacquie reference range: 150 - 32 8 10*3/?L. The reference range was not used to interpret th is result as normal/abnormal . MPV (test code = 31573-0) 11.2 fL 9.8-13 IPF % (test code = 3.7 % 1.2-10.7 Platelet count measured by [id number]) fluorescence me thod. NRBC/100 WBC (test code = See_Comment [ Automated message] The 6082424877) system which ge nerated this result transmit jacquie reference range: 0.0 - 10 .0 /100 WBCs. The reference r carlos was not used to interpr et this result as normal/abnor mal. NRBC x10^3 (test code = <0.01 See_Comment [Au tomated message] The 1276448639) system which [employer] nerated this result transmit jacquie reference range: 10*3/?L. The reference range was not u sed to interpret this result as normal/abnormal . GRAN MAT (NEUT) % (test code 52.5 % = 770-8) IMM GRAN % (test code = 0.90 % 7042891558) LYMPH % (test code = 736-9) 35.5 % MONO % (test code = 5905-5) 8.6 % EOS % (test code = 713-8) 1.6 % BASO % (test code = 706-2) 0.9 % GRAN MAT x10^3(ANC) (test 3.65 10*3/uL 1.99-6.95 code = 0983545606) IMM GRAN x10^3 (test code = 0.06 10*3/uL 0-0.06 2980893144) LYMPH x10^3 (test code = 2.47 10*3/uL 1.09-3.23 731-0) MONO x10^3 (test code = 0.60 10*3/uL 0.36-1.02 742-7) EOS x10^3 (test code = 0.11 10*3/uL 0.06-0.53 711-2) BASO x10^3 (test code = 0.06 10*3/uL 0.01-0.09 704-7) GIANT PLATELETS (test code = Present See_Comment A [Automated message] The 5908-9) system which [employer] nerated this result transmit jacquie reference range: (none). The reference range was not u sed to interpret this result as normal/abnormal . Lab Interpretation (test Abnormal code = 32268-8) [facility] METABOLIC PANEL (NA, K, CL, CO2, GLUCOSE, BUN, CREATININE, CA)2020-02-12 20:01:00 Test Item Value Reference Range Interpretation Comments NA (test code = 137 mmol/L 135-145 8561483893) K (test code = 4.0 mmol/L 3.5-5 4481615754) CL (test code = 105 mmol/L 98-108 4132585525) CO2 TOTAL (test code = 26 mmol/L 23-31 1243489892) AGAP (test code = 2-16 6585900415) BUN (test code = 14 mg/dL 7-23 3504410745) GLUCOSE (test code = 106 mg/dL 70-110 7217749754) CREATININE (test code 0.88 mg/dL 0.6-1.25 = 2383610295) CALCIUM (test code = 9.3 mg/dL 8.6-10.6 7801347217) eGFR Calculation mL/min/1.73m2 (Non-) (test code = 3842635999) eGFR Calculation mL/min/1.73m2 () (test code = 5774948399) SUMIT (test code = SUMIT) Association of Glomerular Filtration Rate (GFR) and Staging of Kidney Disease* + -+ + ---+| GFR (mL/min/1.73 m2) ?| With Kidney Damage ?| ?Without Kidney Damage+ -------+ ------+ ---------+| ?>90 ?| ?Stage one ?| ? Normal ?+ --+ -+ ----+| ?60-89 ?| ?Stage two ?| ? Decreased GFR ? + -+ + ---+| ?30-59 ?| ?Stage three ?| ? Stage three ? + -+ + ---+| ?15-29 ?| ?Stage four ? | ? Stage four ?+ --+ -+ ----+| ?<15 (or dialysis) ? ?| ?Stage five ? | ? Stage five ?+ --+ -+ ----+ *Each stage assumes the associated GFR level has been in effect for at least three months. ?Stages 1 to 5, with or without kidney disease, indicate chronic kidney disease. Notes: Determination of stages one and two (with eGFR >59mL/min/1.73 m2) requires estimation of kidney damage for at least three months as defined by structural or functional abnormalities of the kidney, manifested by either:Pathological abnormalities or Markers of kidney damage (including abnormalities in the composition of the blood or urine or abnormalities in imaging tests). [facility] [id number] 19:30:00 Test Item Value Reference Range Interpretation Comments TROPONIN I (test 0.018 ng/mL See_Comment [Automated code = 1026483507) message] The system which generated this result transmitted reference range : <=0.034. The reference range was not used to interpret this result as normal/abnormal . SUMIT (test code = Equal or Less than SUMIT) 0.034 ng/ml---Normal ?Note: Cardiac troponin begins to rise 3-4 hours after the onset of ischemia. Repeat in 4-6 hours if the sample was drawn within 3-4 hours of the onset of the symptom and found normal. Between 0.035 and 0.120 ng/mL--- Borderline. Questionable myocardial injury or necrosis ? ?Note: Serial measurement may be necessary to confirm or exclude the diagnosis of myocardial injury or necrosis; Clinical correlation (symptoms, EKGs, imaging studies, and others) required; Repeat in 4-6 hours if clinically indicated. ? Equal or Higher than 0.121 ng/mL---Abnormal. Myocardial Injury or Necrosis Likely ? Biotin has been reported to cause a negative bias, interpret results relative to patient's use of biotin. ? Lab Interpretation Normal (test code = 89092-7) [facility]"
[2022-01-07] MEDS ORDERED: ONDANSETRON 4 MG/2 ML VIAL ONE ×2 (15:06→16:10)
[2022-01-07] MEDS ORDERED: FAMOTIDINE 20 MG/2 ML VIAL IV ONE (15:06)
[2022-01-07] MEDS ORDERED: NA CHLORIDE 0.9% 1,000 ML ONE (15:06)
[2022-01-07 15:20] LABS: Urine Blood Trace-intact (Negative); Urine Glucose Negative (Negative); Urine Protein 1+ (Negative)
[2022-01-07 15:29] LABS: Absolute Lymphocytes (CBC) 1.6 K/uL (0.7-4.9); Hematocrit 43.8 % (39.6-49.0); Lymphocytes % 25.9 % (15.3-44.8); RBC Red Blood Cell Count 4.61 M/uL (4.33-5.43)
[2022-01-07 15:40] LABS: Albumin 4.1 g/dL (3.4-5.0); Bilirubin Total 0.5 mg/dL (0.2-1.0); Potassium 3.8 mmol/L (3.5-5.1); Protein, Total 7.8 g/dL (6.4-8.2)
--- NOTE | 2022-01-07 16:07 | RAD REPORT ---
EXAM DESCRIPTION: CT - Abdomen Pelvis W Contrast - 01/07/2022 3:57 pm CLINICAL HISTORY: Abdominal pain/left lower quadrant pain COMPARISON: none. TECHNIQUE: Computed axial tomography of the abdomen pelvis was obtained. 100 cc Isovue-300 was admin istered intravenously. Oral contrast was not requested which limits evaluation of bowel and appendix. All CT scans are performed using dose optimization technique as appropriate and may include automated exposure control or mA/KV adjustment according to patient size. FINDINGS: The liver, spleen, pancreas, adrenal and kidneys appear unremarkable. There is no evidence of diverticulitis. The appendix is not clearly seen. No stranding within the right lower quadrant IMPRESSION: No acute abnormality is displayed.
--- NOTE | 2022-01-07 17:15 | EDPHYS ---
Physician Documentation [facility] Name: Mika Alvarado Age: 36 yrs Sex: Male : 1985 Arrival Date: 01/07/2022 Time: 14:18 Bed 23 Private MD: ED Physician Jc Koroma HPI: 01/07 14:44 This 36 yrs old Black Male presents to ER via Ambulatory with complaints of Nausea, jmm Headache. 14:44 The patient presents to the emergency department with nausea, abdominal pain. Onset: jmm The symptoms/episode began/occurred gradually, 3 day(s) ago. Possible causes: unknown. The symptoms are aggravated by nothing. The symptoms are alleviated by nothing. Associated signs and symptoms: Pertinent positives: abdominal pain, Headache. The patient has not experienced similar symptoms in the past. Patient states his children has similar symptoms. Historical: - Allergies: 14:43 No Known Allergies; iw - Home Meds: 14:43 ran out of lisinopril [Active]; iw - PMHx: 14:43 Hypertension; iw - PSHx: 14:43 None; iw - Immunization history:: Adult Immunizations up to date, Client reports receiving the 2nd dose of the Covid vaccine. - Social history:: Smoking status: Patient denies any tobacco usage or history of. Patient/guardian denies using alcohol. ROS: 14:44 Cardiovascular: Negative for chest pain, palpitations, and edema, Respiratory: Negative jmm for shortness of breath, cough, wheezing, and pleuritic chest pain. 14:44 Constitutional: Positive for body aches, chills. 14:44 Abdomen/GI: Positive for abdominal pain, nausea. 14:44 All other systems are negative. Exam: 14:44 Constitutional: This is a well developed, well nourished patient who is awake, alert, jmm and in no acute distress. Head/Face: atraumatic. Eyes: EOMI, no conjunctival erythema appreciated ENT: Moist Mucus Membranes Neck: Trachea midline, Supple Chest/axilla: Normal chest wall appearance and motion. Cardiovascular: Regular rate and rhythm. No edema appreciated Respiratory: Normal respirations, no respiratory distress appreciated 14:44 Back: Normal ROM Skin: General appearance color normal MS/ Extremity: Moves all extremities, no obvious deformities appreciated, no edema noted to the lower extremities Neuro: Awake and alert Psych: Behavior is normal, Mood is normal, Patient is cooperative and pleasant 14:44 Abdomen/GI: Inspection: abdomen appears normal, Bowel sounds: normal, Palpation: soft, mild abdominal tenderness, in the right lower quadrant and left lower quadrant. Vital Signs: 14:41 Pulse 89; Resp 16; Temp 98.6; Pulse Ox 100% on R/A; iw 16:09 BP 147 / 104; Pulse 67; Resp 18; Pulse Ox 100% on R/A; ld1 MDM: 14:44 Patient medically screened. [facility] 17:13 Data reviewed: vital signs, nurses notes. [facility] 17:13 Counseling: I had a detailed discussion with the patient and/or guardian regarding: the [facility] historical points, exam findings, and any diagnostic results supporting the discharge/admit diagnosis, lab results, radiology results, the need for outpatient follow up, to return to the emergency department if symptoms worsen or persist or if there are any questions or concerns that arise at home. ED course: Patient is alert nontoxic in appearance NAD. CT negative. Labs unremarkable. Patient has no abdominal pain on reexamination. Patient given early appendicitis return precautions. Patient states feeling much better. Patient otherwise given strict return precautions. Patient understood agrees plan of care.. 01/07 14:45 Order name: CBC with Diff; Complete Time: 15:51 [facility] 01/07 14:45 Order name: CMP; Complete Time: 15:51 [facility] 01/07 14:45 Order name: Lipase; Complete Time: 15:51 [facility] 01/07 14:47 Order name: CT Abd/Pelvis - IV Contrast Only; Complete Time: 16:07 [facility] 01/07 15:21 Order name: Urine Dipstick-Ancillary; Complete Time: 15:21 [facility] 01/07 14:45 Order name: IV Saline Lock; Complete Time: 15:12 [facility] 01/07 14:45 Order name: Labs collected and sent; Complete Time: 15:12 [facility] 01/07 14:45 Order name: Urine Dipstick-Ancillary (obtain specimen); Complete Time: 15:13 [facility] Administered Medications: 15:17 Drug: NS 0.9% 1000 ml Route: IV; Rate: 1 bolus; Site: right antecubital; ld1 15:17 Drug: Pepcid (famotidine) 20 mg Route: IVP; Site: right antecubital; ld1 15:17 Drug: Zofran (Ondansetron) 4 mg Route: IVP; Site: right antecubital; ld1 16:06 Drug: Zofran (Ondansetron) 4 mg Route: IVP; Site: right antecubital; ld1 16:06 Follow up: Response: No adverse reaction ld1 Disposition: 22:13 Co-signature as Attending Physician, Jc Koroma DO I was immediately available on-site ms3 in the Emergency Department for consultation in the care of the patient.. Disposition Summary: 01/07/22 17:14 Discharge Ordered Location: Home [facility] Condition: Stable jmm Diagnosis - Abdominal pain, unspecified jmm Followup: [facility] - With: Private Physician - When: 2 - 3 days - Reason: Recheck today's complaints, Continuance of care, Re-evaluation by your physician Discharge Instructions: - Discharge Summary Sheet jmm - Abdominal Pain, Adult jmm - Clear Liquid Diet, Adult [facility] Forms: - Medication Reconciliation Form [facility] - Thank You Letter [facility] - Antibiotic Education [facility] - Prescription Opioid Use [facility] - Work release form kj1 - Family Work Release kj1 Prescriptions: - ondansetron 4 mg Oral tablet,disintegrating - take 1 tablet by ORAL route every 4-6 hours As needed; 20 tablet; Refills: 0, [facility] Product Selection Permitted - dicyclomine 20 mg Oral Tablet - take 1 tablet by ORAL route 4 times per day As needed; 30 tablet; Refills: 0, [facility] Product Selection Permitted Signatures: Dispatcher [employer] EDEarnest Fitzpatrick PA PA Yue Amador RN RN iw Sims, Marcus, DO DO ms3 Lucinda Be RN RN ld1
--- NOTE | 2022-01-07 17:15 | ER ---
Nurse's Notes [facility] Name: Mika Alvarado Age: 36 yrs Sex: Male : 1985 Arrival Date: 01/07/2022 Time: 14:18 Bed 23 Private MD: Diagnosis: Abdominal pain, unspecified Presentation: 01/07 14:41 Chief complaint: Patient states: nausea, vomiting, headache ,low abd pain, nausea for a iw couple days. Coronavirus screen: At this time, the client does not indicate any symptoms associated with coronavirus-19. Ebola Screen: Patient negative for fever greater than or equal to 101.5 degrees Fahrenheit, and additional compatible Ebola Virus Disease symptoms Patient denies exposure to infectious person. Patient denies travel to an Ebola-affected area in the 21 days before illness onset. No symptoms or risks identified at this time. Initial Sepsis Screen: Does the patient meet any 2 criteria? No. Patient's initial sepsis screen is negative. Does the patient have a suspected source of infection? No. Patient's initial sepsis screen is negative. Risk Assessment: Do you want to hurt yourself or someone else? Patient reports no desire to harm self or others. Onset of symptoms was January 05, 2022. 14:41 Method Of Arrival: Ambulatory iw 14:41 Acuity: MAMADOU 3 iw Historical: - Allergies: 14:43 No Known Allergies; iw - Home Meds: 14:43 ran out of lisinopril [Active]; iw - PMHx: 14:43 Hypertension; iw - PSHx: 14:43 None; iw - Immunization history:: Adult Immunizations up to date, Client reports receiving the 2nd dose of the Covid vaccine. - Social history:: Smoking status: Patient denies any tobacco usage or history of. Patient/guardian denies using alcohol. Screenin:21 Abuse screen: Denies threats or abuse. Denies injuries from another. Nutritional ld1 screening: No deficits noted. Tuberculosis screening: No symptoms or risk factors identified. Fall Risk None identified. Assessment: 15:21 General: Appears in no apparent distress. comfortable, Behavior is calm, cooperative, ld1 appropriate for age. Pain: Denies pain. Neuro: Level of Consciousness is awake, alert, obeys commands, Oriented to person, place, time, situation. Cardiovascular: Capillary refill < 3 seconds Patient's skin is warm and dry. Respiratory: Airway is patent Respiratory effort is even, unlabored. GI: Abdomen is flat, non-distended, Reports nausea, vomiting. : No signs and/or symptoms were reported regarding the genitourinary system. EENT: No signs and/or symptoms were reported regarding the EENT system. Derm: No signs and/or symptoms reported regarding the dermatologic system. Musculoskeletal: No signs and/or symptoms reported regarding the musculoskeletal system. 16:09 Reassessment: Patient appears in no apparent distress at this time. Patient is alert, ld1 oriented x 3, equal unlabored respirations, skin warm/dry/pink. C/O Nausea. Notified ERP. See MAR for orders. Vital Signs: 14:41 Pulse 89; Resp 16; Temp 98.6; Pulse Ox 100% on R/A; iw 16:09 BP 147 / 104; Pulse 67; Resp 18; Pulse Ox 100% on R/A; ld1 ED Course: 14:18 Patient arrived in ED. mr 14:21 Earnest Mcelroy PA is PHCP. jmm 14:21 Jc Koroma DO is Attending Physician. jmm 14:43 Triage completed. iw 14:44 Arm band placed on. iw 14:55 Lucinda Be, RN is Primary Nurse. ld1 15:12 Inserted saline lock: 20 gauge in right antecubital area, using aseptic technique. zm Blood collected. 15:12 CBC with Diff Sent. zm 15:12 CMP Sent. zm 15:13 Lipase Sent. zm 15:21 Patient has correct armband on for positive identification. Placed in gown. Bed in low ld1 position. Call light in reach. Side rails up X2. residential monitor on. Pulse ox on. NIBP on. Door closed. Noise minimized. Warm blanket given. 15:21 No provider procedures requiring assistance completed. ld1 15:58 CT Abd/Pelvis - IV Contrast Only In Process Unspecified. EDMS 17:20 IV discontinued, intact, bleeding controlled, No redness/swelling at site. ld1 Administered Medications: 15:17 Drug: NS 0.9% 1000 ml Route: IV; Rate: 1 bolus; Site: right antecubital; ld1 15:17 Drug: Pepcid (famotidine) 20 mg Route: IVP; Site: right antecubital; ld1 15:17 Drug: Zofran (Ondansetron) 4 mg Route: IVP; Site: right antecubital; ld1 16:06 Drug: Zofran (Ondansetron) 4 mg Route: IVP; Site: right antecubital; ld1 16:06 Follow up: Response: No adverse reaction ld1 Medication: 15:21 VIS not applicable for this client. ld1 Outcome: 17:14 Discharge ordered by . gabbie 17:20 Discharged to home ambulatory, with family. ld1 17:20 Condition: stable 17:20 Discharge instructions given to patient, Instructed on discharge instructions, follow up and referral plans. Demonstrated understanding of instructions, follow-up care. 17:20 Patient left the ED. ld1 Signatures: Dispatcher [employer] EDMS Earnest Mcelroy PA PA jmm Rivera, Mary mr Williams, Irene, RN RN iw Dibbern, Lauren, RN RN ld1 Alexandra Palacio
[2022-01-07 19:36] VITALS: TEMP 98.6; O2SAT 100
[2022-01-07 19:38] VITALS: BP 147/104
== END 2022-01-07 17:20 | disposition home or self-care (01) ==
LOC: ER 14:14
DX: R10.30 Lower abdominal pain, unspecified (principal); R11.0 Nausea; R51.9 Headache, unspecified; I10 Essential (primary) hypertension
CPT/HCPCS: 36415; 74177; 80053; 81003; 83690; 85025; 96374; 96375; 99284; J2405; J3490; J7030; Q9967

== ENCOUNTER 2022-06-16 06:32 | Emergency (ER) | payer SELFPAY ==
--- OUTSIDE RECORDS SUMMARY | 2022-06-16 06:34 | XMS REPORT | Continuity of Care Document ---
:1985 Author Organization [facility] t Address [address] [place] [address] Care Team Providers Name Role Phone Aram Nowak MD Attending Clinician Problems This patient has no known problems. Allergies, Adverse Reactions, Alerts Allergy Allergy Status Severity Reaction(s) Onset Inactive Treating Comm ents Source Name Type Date Date Clinician NO KNOWN Drug Active Univers ALLERGIE Class ity of S [facility] Social History Social Habit Start Date Stop Date Quantity Comments Source [facility] Exposure to SARS-CoV-2 Not sure [facility] [place] (event) [facility] Smoking Status Start Date Stop Date Source Unknown if ever smoked [facility] Medications Ordered Filled Start Stop Current Ordering Indication Dosage Frequency Signature Comments Components Source Medication Medication Date Date Medication? Clinician (SIG) Name Name cloNIDine 2020- No .2mg 0.2 mg, Univ ers (CATAPRES) 02-11 Oral, ity of tablet 0.2 19:15: 18:22 ONCE, 1 Jesus as mg 00 :00 dose, [facility] 02/12/20 at [place] [address], STAT lisinopril 2019-0 Yes [id number] 10mg Take 1 Univers 10 mg 6-16 tablet by ity of tablet 00:00: mouth at [place] [address] bedtime. [facility] naproxen 2019-0 Yes [id number] 550mg Take 1 U nivers sodium 550 6-16 tablet by ity of mg tablet 00:00: mouth 2 [place] [address] (two) Medical times [place] daily with meals. Vital Signs Vital Name Observation Time Observation Value Comments Source Systolic blood 2020-02-12 20:30:00 130 mm[Hg] Univer sity of pressure [facility] Diastolic blood 2020-02-12 20:30:00 95 mm[Hg] [facility] rsity of pressure [facility] Heart rate 2020-02-12 20:30:00 75 /min [facility] Respiratory rate 2020-02-12 20:30:00 16 /min [facility] Oxygen saturation in 2020-02-12 20:30:00 97 /min [facility] Arterial blood by [facility] Pulse oximetry Branch Body temperature 2020-02-12 17:39:00 37 [facility]ura [facility] Body height 2020-02-12 17:39:00 175.3 cm [facility] Body weight 2020-02-12 17:39:00 97.523 kg [facility] BMI 2020-02-12 17:39:00 31.75 kg/m2 [facility] Procedures Procedure Date / Time Performing Clinician Source Performed BASIC METABOLIC PANEL 2020-02-12 19:37:00 Aram Nowak [facility] (NA, K, CL, CO2, [facility] GLUCOSE, BUN, CREATININE, CA) TROPONIN I 2020-02-12 18:29:00 Aram Nowak [facility] CBC WITH DIFFERENTIAL 2020-02-12 18:29:00 Aram Nowak [facility] NOTICE OF PRIVACY 2020-02-12 17:26:27 Doctor Unassigned, No Univ [facility] PRACTICES Name [facility] CONSENT/REFUSAL FOR 2020-02-12 17:25:57 Doctor Unassigned, [facility] [place] [place] [facility] AND TREATMENT Name [facility] Encounters Start End Encounter Admission Attending Care Care Encounter Source Date/Time Date/Time Type Type Clinicians Facility Department ID 2020-02-12 2020-02-12 Emergency [facility] [id number] Univers 12:27:36 16:00:00 Aram Jones [id number] [facility] [id number] [facility] 084 Branch 2020-02-12 2020-02-12 Emergency X [facility] ERT [id number] Univers 12:27:36 [facility] Results Test Description Test Time Test Comments Results Result Comments Source CBC WITH DIFFERENTIAL 2020-02-12 20:26:00 Test Item Value Reference Range Interpretation Comme nts WBC (test code = 6690-2) See_Comment [A utomated message] The system which [employer] nerated this result transmit jacquie reference range: [...] g/dL 31.2-35 H RDW-SD (test code = 23062-6) 46.5 fL 38.5-51.6 RDW-CV (test code = 788-0) 13.8 % 12.1-15.4 PLT (test code = 777-3) See_Comment [Au tomated message] The system which [employer] nerated this result transmit jacquie reference range: 150 - 32 8 10*3/?L. The reference range was not used to interpret th is result as normal/abnormal . MPV (test code = 70161-8) 11.2 fL 9.8-13 IPF % (test code = 3.7 % 1.2-10.7 Platelet count measured by [id number]) fluorescence me thod. NRBC/100 WBC (test code = See_Comment [ Automated message] The [id number]) system which [employer] nerated this result transmit jacquie reference range: 0.0 - 10 .0 /100 WBCs. The reference r carlos was not used to interpr et this result as normal/abnor mal. NRBC x10^3 (test code = <0.01 See_Comment [Au tomated message] The [id number]) system which [employer] nerated this result transmit jacquie reference range: 10*3/?L. The reference range was not u sed to interpret this result as normal/abnormal . GRAN MAT (NEUT) % (test code 52.5 % = 770-8) IMM GRAN % (test code = 0.90 % [id number]) LYMPH % (test code = 736-9) 35.5 % MONO % (test code = 5905-5) 8.6 % EOS % (test code = 713-8) 1.6 % BASO % (test code = 706-2) 0.9 % GRAN MAT x10^3(ANC) (test 3.65 10*3/uL 1.99-6.95 code = 2742842952) IMM GRAN x10^3 (test code = 0.06 10*3/uL 0-0.06 2623926554) LYMPH x10^3 (test code = 2.47 10*3/uL 1.09-3.23 731-0) MONO x10^3 (test code = 0.60 10*3/uL 0.36-1.02 742-7) EOS x10^3 (test code = 0.11 10*3/uL 0.06-0.53 711-2) BASO x10^3 (test code = 0.06 10*3/uL 0.01-0.09 704-7) GIANT PLATELETS (test code = Present See_Comment A [Automated message] The 5908-9) system which [employer] nerated this result transmit jacquie reference range: (none). The reference range was not u sed to interpret this result as normal/abnormal . Lab Interpretation (test Abnormal code = 99528-2) [facility] METABOLIC PANEL (NA, K, CL, CO2, GLUCOSE, BUN, CREATININE, CA)2020-02-12 20:01:00 Test Item Value Reference Range Interpretation Comments NA (test code = 137 mmol/L 135-145 0282915111) K (test code = 4.0 mmol/L 3.5-5 5409534522) CL (test code = 105 mmol/L 98-108 2360597034) CO2 TOTAL (test code = 26 mmol/L 23-31 0041248892) AGAP (test code = 2-16 7454777235) BUN (test code = 14 mg/dL 7-23 6035362285) GLUCOSE (test code = 106 mg/dL 70-110 4571870663) CREATININE (test code 0.88 mg/dL 0.6-1.25 = 4678592908) CALCIUM (test code = 9.3 mg/dL 8.6-10.6 2876223917) eGFR Calculation mL/min/1.73m2 (Non-) (test code = 9743229607) eGFR Calculation mL/min/1.73m2 () (test code = 9557146191) SUMIT (test code = SUMIT) Association of [...] or urine or abnormalities in imaging tests). [id number] 19:30[facility]00 Test Item Value Reference Range Interpretation Comments TROPONIN I (test 0.018 ng/mL See_Comment [Automated code = 9175542101) message] The system which generated this result [...] ? Lab Interpretation Normal (test code = 00562-9) [facility]"
[2022-06-16] MEDS ORDERED: KETOROLAC 30 MG/ML INJ ONE (08:06)
[2022-06-16] MEDS ORDERED: dexAMETHasone 10 MG/ML VIAL ONE (08:06)
[2022-06-16] MEDS ORDERED: DIAZEPAM 2 MG TABLET ONE (08:09)
--- NOTE | 2022-06-16 08:40 | RAD REPORT ---
EXAM DESCRIPTION: RAD - Lumbar Spine 3 Views - 06/16/2022 8:33 am CLINICAL HISTORY: PAIN COMPARISON: No comparisonsAbdomen Pelvis W Contrast dated 01/07/2022 FINDINGS: A three-view lumbar spine examination was performed. L2-L5 bodies are normal in height. Very slight wedging along the superior endplate L1 is present unch anged from December 2021. No alignment abnormality. No significant facet joint degenerative change seen. N o fracture or acute bony process seen. No disc space narrowing. No pars defects identified. No SI willis nt abnormality seen. IMPRESSION: Negative lumbar spine examination for acute or significant finding. Concerns for disc herniation, central canal abnormality or occult bone process can be further evaluat ed with outpatient MRI imaging of the lumbar spine.
--- NOTE | 2022-06-16 08:46 | ER ---
Nurse's Notes [facility] Name: Mika Alvarado Age: 36 yrs Sex: Male : 1985 Arrival Date: 06/16/2022 Time: 06:35 Bed 13 Private MD: Diagnosis: Sciatica;Low back pain Presentation: 06/16 06:52 Chief complaint: Patient states: right lower back pain radiating down right buttock to kl calf off and on x 2 weeks not relieved by Ibuprofen reports dragging right lower extremity. Coronavirus screen: Vaccine status: Patient reports being unvaccinated. Ebola Screen: Patient negative for fever greater than or equal to 101.5 degrees Fahrenheit, and additional compatible Ebola Virus Disease symptoms. Initial Sepsis Screen: Does the patient meet any 2 criteria? No. Patient's initial sepsis screen is negative. Does the patient have a suspected source of infection? No. Patient's initial sepsis screen is negative. Risk Assessment: Do you want to hurt yourself or someone else? Patient reports no desire to harm self or others. 06:52 Method Of Arrival: Ambulatory 06:52 Acuity: MAMADOU 4 kl 09:50 Onset of symptoms was June 14, 2022. Triage Assessment: 06:55 General: Appears uncomfortable, well groomed, well developed, Behavior is calm, kl cooperative. Pain: Complains of pain in right gluteus aydee Pain radiates to back of right leg Pain currently is 10 out of 10 on a pain scale. Quality of pain is described as throbbing, Noted to be grimacing, resistant to movement. EENT: No deficits noted. No signs and/or symptoms were reported regarding the EENT system. Neuro: No deficits noted. Maria Agitation-Sedation Scale (RASS):. Cardiovascular: No deficits noted. Respiratory: No deficits noted. GI: No deficits noted. No signs and/or symptoms were reported involving the gastrointestinal system. : No deficits noted. No signs and/or symptoms were reported regarding the genitourinary system. Derm: No deficits noted. No signs and/or symptoms reported regarding the dermatologic system. Historical: - Allergies: 06:55 No Known Allergies; kl - Home Meds: :55 ran out of lisinopril [Active]; kl - PMHx: 06:55 Hypertension; kl - PSHx: 06:55 None; kl - Immunization history:: Adult Immunizations not up to date. - Social history:: Smoking status: Patient reports the use of cigarette tobacco products, smokes one-half pack cigarettes per day. - Family history:: not pertinent. Screenin:50 Abuse screen: Denies threats or abuse. Denies injuries from another. Nutritional db screening: No deficits noted. Tuberculosis screening: No symptoms or risk factors identified. Fall Risk None identified. No fall in past 12 months (0 pts). No secondary diagnosis (0 pts). No IV (0 pts). Ambulatory Aid- None/Bed Rest/Nurse Assist (0 pts). Gait- Normal/Bed Rest/Wheelchair (0 pts) Mental Status- Oriented to own ability (0 pts). Total Suarez Fall Scale indicates No Risk (0-24 pts). Sepsis Screening:. Assessment: 07:33 Reassessment: Patient appears in no apparent distress at this time. No changes from db previously documented assessment. Patient and/or family updated on plan of care and expected duration. Pain level reassessed. Patient is alert, oriented x 3, equal unlabored respirations, skin warm/dry/pink. Patient complains of Right lower back pain x 2 weeks states worse x 2 days. Pain radiates to right leg. States has hypertension out of medications x 2 weeks. General: Appears in no apparent distress. comfortable, Behavior is calm, cooperative, appropriate for age, quiet. Pain: Complains of pain in lower back. 08:30 Reassessment: Patient appears in no apparent distress at this time. No changes from db previously documented assessment. Patient and/or family updated on plan of care and expected duration. Pain level reassessed. Patient is alert, oriented x 3, equal unlabored respirations, skin warm/dry/pink. 09:20 Reassessment: Patient appears in no apparent distress at this time. No changes from db previously documented assessment. Patient and/or family updated on plan of care and expected duration. Pain level reassessed. Patient is alert, oriented x 3, equal unlabored respirations, skin warm/dry/pink. Patient states feeling better. Patient states symptoms have improved. Vital Signs: 06:52 BP 163 / 108; Pulse 88; Resp 18; Temp 98.6(O); Pulse Ox 100% on R/A; Weight 102.06 kg kl (M); Height 5 ft. 9 in. (175.26 cm); Pain 10/10; 07:31 BP 153 / 110; Pulse 82; Resp 16; Pulse Ox 100% ; Pain 10/10; db 06:52 Body Mass Index 33.23 (102.06 kg, 175.26 cm) ED Course: 06:35 Patient arrived in ED. bp1 06:55 Triage completed. 07:08 Evi Gentile, RN is Primary Nurse. db 07:11 Cheng Wilkerson MD is Attending Physician. [facility] 07:50 Patient has correct armband on for positive identification. Bed in low position. Side db rails up X 1. 08:35 Lumbar Spine (3 Views) XRAY In Process Unspecified. EDMS 09:10 Arm band placed on right wrist. Patient placed in an exam room. db 09:23 No provider procedures requiring assistance completed. Patient did not have IV access db during this emergency room visit. Administered Medications: 08:15 Drug: Valium (diazepam) 5 mg Route: PO; db 09:22 Follow up: Response: No adverse reaction db 08:20 Drug: Ketorolac 60 mg Route: IM; Site: left deltoid; db 09:22 Follow up: Response: No adverse reaction db 08:20 Drug: Decadron (dexamethasone) 10 mg Route: IM; Site: right deltoid; db 09:22 Follow up: Response: No adverse reaction db Medication: 07:50 VIS not applicable for this client. db Outcome: 08:46 Discharge ordered by . zehra 09:23 Discharged to home ambulatory. db 09:23 Condition: stable 09:23 Discharge instructions given to patient, Instructed on discharge instructions, Demonstrated understanding of instructions, follow-up care, medications, Prescriptions given X 4. 09:50 Patient left the ED. Signatures: Dispatcher [employer] Letty Han RN RN kl Anderson, Corey, MD MD cha Smirch, Shelby, RN RN Francesca Morataya [facility] Evi Gentile, SATHYA RN db
--- NOTE | 2022-06-16 08:47 | EDPHYS ---
Physician Documentation [facility] Name: Mika Alvarado Age: 36 yrs Sex: Male : 1985 Arrival Date: 06/16/2022 Time: 06:35 Bed 13 Private MD: SANDOVAL Physician Cheng Wilkerson HPI: 06/16 08:39 This 36 yrs old Black Male presents to ER via Ambulatory with complaints of Low Back zehra Pain. 08:39 The patient presents with pain that is acute, and decreased range of motion. The zehra symptoms are located in the low back. The pain radiates to the lumbar area, left low back and right low back. The problem was sustained when lifting heavy object. Onset: The symptoms/episode began/occurred 3 day(s) ago. Modifying factors: The patient symptoms are alleviated by remaining still, the patient symptoms are aggravated by lifting, movement. Associated signs and symptoms: The patient has no apparent associated signs or symptoms. Severity of symptoms: At their worst the symptoms were mild, in the emergency department the symptoms are unchanged. The patient has not experienced similar symptoms in the past. Historical: - Allergies: 06:55 No Known Allergies; kl - Home Meds: 06:55 ran out of lisinopril [Active]; kl - PMHx: 06:55 Hypertension; kl - PSHx: 06:55 None; kl - Immunization history:: Adult Immunizations not up to date. - Social history:: Smoking status: Patient reports the use of cigarette tobacco products, smokes one-half pack cigarettes per day. - Family history:: not pertinent. ROS: 08:39 Constitutional: Negative for fever, chills, and weight loss, Eyes: Negative for injury, zehra pain, redness, and discharge, ENT: Negative for injury, pain, and discharge, Neck: Negative for injury, pain, and swelling, Cardiovascular: Negative for chest pain, palpitations, and edema, Respiratory: Negative for shortness of breath, cough, wheezing, and pleuritic chest pain, Abdomen/GI: Negative for abdominal pain, nausea, vomiting, diarrhea, and constipation, : Negative for injury, bleeding, discharge, and swelling, MS/Extremity: Negative for injury and deformity, Skin: Negative for injury, rash, and discoloration, Neuro: Negative for headache, weakness, numbness, tingling, and seizure, Psych: Negative for depression, anxiety, suicide ideation, homicidal ideation, and hallucinations, Allergy/Immunology: Negative for hives, rash, and allergies, Endocrine: Negative for neck swelling, polydipsia, polyuria, polyphagia, and marked weight changes, Hematologic/Lymphatic: Negative for swollen nodes, abnormal bleeding, and unusual bruising. 08:39 Back: Positive for decreased range of motion, pain at rest, pain with movement, radiated pain, of the lumbar area, left low back and right low back. Exam: 08:39 Constitutional: This is a well developed, well nourished patient who is awake, alert, zehra and in no acute distress. Head/Face: Normocephalic, atraumatic. Eyes: Pupils equal round and reactive to light, extra-ocular motions intact. Lids and lashes normal. Conjunctiva and sclera are non-icteric and not injected. Cornea within normal limits. Periorbital areas with no swelling, redness, or edema. ENT: Nares patent. No nasal discharge, no septal abnormalities noted. Tympanic membranes are normal and external auditory canals are clear. Oropharynx with no redness, swelling, or masses, exudates, or evidence of obstruction, uvula midline. Mucous membranes moist. Neck: Trachea midline, no thyromegaly or masses palpated, and no cervical lymphadenopathy. Supple, full range of motion without nuchal rigidity, or vertebral point tenderness. No Meningismus. Chest/axilla: Normal chest wall appearance and motion. Nontender with no deformity. No lesions are appreciated. Cardiovascular: Regular rate and rhythm with a normal S1 and S2. No gallops, murmurs, or rubs. Normal PMI, no JVD. No pulse deficits. Respiratory: Lungs have equal breath sounds bilaterally, clear to auscultation and percussion. No rales, rhonchi or wheezes noted. No increased work of breathing, no retractions or nasal flaring. Abdomen/GI: Soft, non-tender, with normal bowel sounds. No distension or tympany. No guarding or rebound. No evidence of tenderness throughout. Male : Normal genitalia with no discharge or lesions. Skin: Warm, dry with normal turgor. Normal color with no rashes, no lesions, and no evidence of cellulitis. MS/ Extremity: Pulses equal, no cyanosis. Neurovascular intact. Full, normal range of motion. Neuro: Awake and alert, GCS 15, oriented to person, place, time, and situation. Cranial nerves II-XII grossly intact. Motor strength 5/5 in all extremities. Sensory grossly intact. Cerebellar exam normal. Normal gait. Psych: Awake, alert, with orientation to person, place and time. Behavior, mood, and affect are within normal limits. 08:39 Back: pain, that is moderate, ROM is painful, normal spinal alignment noted, CVA tenderness, is absent, muscle spasm, is appreciated in the low back area, left low back, left mid back and right mid back. Vital Signs: 06:52 BP 163 / 108; Pulse 88; Resp 18; Temp 98.6(O); Pulse Ox 100% on R/A; Weight 102.06 kg kl (M); Height 5 ft. 9 in. (175.26 cm); Pain 10/10; 07:31 BP 153 / 110; Pulse 82; Resp 16; Pulse Ox 100% ; Pain 10/10; db 06:52 Body Mass Index 33.23 (102.06 kg, 175.26 cm) MDM: 07:11 Patient medically screened. [facility] 08:41 Differential diagnosis: strain, sciatica, Herniated disc. Data reviewed: vital signs, [facility] nurses notes, radiologic studies, plain films. Data interpreted: traffic monitor specialist: not applicable for this patient encounter. rate is 82 beats/min, Pulse oximetry: is not applicable for this patient encounter. on room air is 100 %. Test interpretation: by ED physician or midlevel provider: plain radiologic studies. Counseling: I had a detailed discussion with the patient and/or guardian regarding: the historical points, exam findings, and any diagnostic results supporting the discharge/admit diagnosis, radiology results, the need for outpatient follow up, for definitive care, a family practitioner. 06/16 07:38 Order name: Lumbar Spine (3 Views) XRAY zehra Administered Medications: 08:15 Drug: Valium (diazepam) 5 mg Route: PO; db 09:22 Follow up: Response: No adverse reaction db 08:20 Drug: Ketorolac 60 mg Route: IM; Site: left deltoid; db 09:22 Follow up: Response: No adverse reaction db 08:20 Drug: Decadron (dexamethasone) 10 mg Route: IM; Site: right deltoid; db 09:22 Follow up: Response: No adverse reaction db Disposition Summary: 06/16/22 08:46 Discharge Ordered Location: Home [facility] Problem: new zehra Symptoms: have improved zehra Condition: Stable zehra Diagnosis - Sciatica zehra - Low back pain zehra Followup: zehra - With: Private Physician - When: 2 - 3 days - Reason: Recheck today's complaints, Continuance of care, Re-evaluation by your physician Discharge Instructions: - Discharge Summary Sheet zehra - Acute Back Pain, Adult zehra - Hypertension, Adult zehra - Musculoskeletal Pain zehra - Back Injury Prevention, [id number] zehra - Hypertension, Adult, [id number] zehra Forms: - Medication Reconciliation Form [facility] - Thank You Letter [facility] - Antibiotic Education [facility] - Prescription Opioid Use [facility] Prescriptions: - Ibuprofen 600 mg Oral Tablet - take 1 tablet by ORAL route every 6 hours As needed take with food; 30 tablet; zehra Refills: 0, Product Selection Permitted - Norvasc 5 mg Oral Tablet - take 1 tablet by ORAL route once daily; 20 tablet; Refills: 0, Product zehra Selection Permitted - Medrol (Tahir) 4 mg Oral Tablets, Dose Pack - take 1 tablet by ORAL route as directed - follow package instructions; 1 zehra packet; Refills: 0, Product Selection Permitted - Cyclobenzaprine 5 mg Oral Tablet - take 1 tablet by ORAL route 3 times per day As needed; 15 tablet; Refills: 0, zehra Product Selection Permitted Signatures: Dispatcher [employer] Letty Han, RN RN Cheng Haji MD MD cha Benton, Danielle, RN RN db
[2022-06-16 09:56] VITALS: TEMP 98.6; O2SAT 100
[2022-06-16 09:57] VITALS: BP 153/110
== END 2022-06-16 09:50 | disposition home or self-care (01) ==
LOC: ER 06:32
DX: M54.30 Sciatica, unspecified side (principal); M54.50 Low back pain, unspecified
CPT/HCPCS: 72100; 96372; 99283; J1100

== ENCOUNTER 2022-07-13 08:00 | Emergency (ER) | payer SELFPAY ==
--- OUTSIDE RECORDS SUMMARY | 2022-07-13 08:07 | XMS REPORT | Continuity of Care Document ---
:1985 Author Organization [facility] t Address [address] [place] [address] Care Team Providers Name Role Phone Aram Nowak MD Attending Clinician Problems This patient has no known problems. Allergies, Adverse Reactions, Alerts Allergy Allergy Status Severity Reaction(s) Onset Inactive Treating Comm ents Source Name Type Date Date Clinician NO KNOWN Drug Active Univers ALLERGIE Class ity of S [facility] Social History Social Habit Start Date Stop Date Quantity Comments Source [facility] to [facility]-2 Not sure [facility] [place] (event) [facility] Smoking Status Start Date Stop Date Source Unknown if ever smoked Universit y [facility] Medications Ordered Filled Start Stop Current Ordering Indication Dosage Frequency Signature Comments Components Source Medication Medication Date Date Medication? Clinician (SIG) Name Name cloNIDine 2020- No .2mg 0.2 mg, Univ ers (CATAPRES) 02-11 Oral, ity of tablet 0.2 19:15: 18:22 ONCE, 1 Jesus as mg 00 :00 dose, [facility] 02/12/20 at [address] 1415, STAT lisinopril 0 Yes [id number] 10mg Take 1 Univers 10 mg 6-16 tablet by ity of tablet 00:00: mouth at [place] [address] bedtime. Medical Branch naproxen 2020-0 Yes [id number] 550mg Take 1 U nivers sodium 550 6-16 tablet by ity of mg tablet 00:00: mouth 2 [place] [address] (two) Medical times [place] daily with meals. Vital Signs Vital Name Observation Time Observation Value Comments Source Systolic blood 2020-02-12 20:30:00 130 mm[Hg] Univer sity of pressure [facility] Diastolic blood 2020-02-12 20:30:00 95 mm[Hg] [facility] Heart rate 2020-02-12 20:30:00 75 /min [facility] Respiratory rate 2020-02-12 20:30:00 16 /min [facility] Oxygen saturation in 2020-02-12 20:30:00 97 /min [facility] Arterial blood by [facility] Pulse oximetry Branch Body temperature 2020-02-12 17:39:00 37 Aura [facility] Body height 2020-02-12 17:39:00 175.3 cm [facility] Body weight 2020-02-12 17:39:00 97.523 kg [facility] BMI 2020-02-12 17:39:00 31.75 kg/m2 [facility] Procedures Procedure Date / Time Performing Clinician Source Performed BASIC METABOLIC PANEL 2020-02-12 19:37:00 Aram Nowak [facility] (NA, K, CL, CO2, [facility] GLUCOSE, BUN, CREATININE, CA) TROPONIN I 2020-02-12 18:29:00 Aram Nowak [facility] CBC WITH DIFFERENTIAL 2020-02-12 18:29:00 Aram Nowak [facility] NOTICE OF PRIVACY 2020-02-12 17:26:27 Doctor Unassigned, No Univ [facility] PRACTICES Name [facility] CONSENT/REFUSAL FOR 2020-02-12 17:25:57 Doctor Unassigned, [facility] Name [facility] Encounters Start End Encounter Admission Attending Care Care Encounter Source Date/Time Date/Time Type Type Clinicians Facility Department ID 2020-02-12 2020-02-12 Emergency [facility] [id number] Univers 12:27:36 16:00:00 Aram Jones [id number] [facility] [place] [id number] [facility] [id number] [facility] 084 Branch 2020-02-12 2020-02-12 Emergency X [facility] ERT [id number] 97 Univers 12:27:36 12:27:[facility] Results Test Description Test Time Test [...] g/dL 31.2-35 H RDW-SD (test code = 40614-3) 46.5 fL 38.5-51.6 RDW-CV (test code = 788-0) 13.8 % 12.1-15.4 PLT (test code = 777-3) See_Comment [Au tomated message] The system which ge nerated this result transmit jacquie reference range: 150 - 32 8 10*3/?L. The reference range was not used to interpret th is result as normal/abnormal . MPV (test code = 17409-1) 11.2 fL 9.8-13 IPF % (test code = 3.7 % 1.2-10.7 Platelet count measured by [id number]) fluorescence me thod. NRBC/100 WBC (test code = See_Comment [ Automated message] The 1727996556) system which [employer] nerated this result transmit jacquie reference range: 0.0 - 10 .0 /100 WBCs. The reference r carlos was not used to interpr et this result as normal/abnor mal. NRBC x10^3 (test code = <0.01 See_Comment [Au tomated message] The 2327359031) system which [employer] nerated this result transmit jacquie reference range: 10*3/?L. The reference range was not u sed to interpret this result as normal/abnormal . GRAN MAT (NEUT) % (test code 52.5 % = 770-8) IMM GRAN % (test code = 0.90 % 7999873137) LYMPH % (test code = 736-9) 35.5 % MONO % (test code = 5905-5) 8.6 % EOS % (test code = 713-8) 1.6 % BASO % (test code = 706-2) 0.9 % GRAN MAT x10^3(ANC) (test 3.65 10*3/uL 1.99-6.95 code = 8653267770) IMM GRAN x10^3 (test code = 0.06 10*3/uL 0-0.06 2804285851) LYMPH x10^3 (test code = 2.47 10*3/uL 1.09-3.23 731-0) MONO x10^3 (test code = 0.60 10*3/uL 0.36-1.02 742-7) EOS x10^3 (test code = 0.11 10*3/uL 0.06-0.53 711-2) BASO x10^3 (test code = 0.06 10*3/uL 0.01-0.09 704-7) GIANT PLATELETS (test code = Present See_Comment A [Automated message] The 5908-9) system which [employer] nerated this result transmit jacquie reference range: (none). The reference range was not u sed to interpret this result as normal/abnormal . Lab Interpretation (test Abnormal code = 34782-4) [facility] METABOLIC PANEL (NA, K, CL, CO2, GLUCOSE, BUN, CREATININE, CA)2020-02-12 20:01:00 Test Item Value Reference Range Interpretation Comments NA (test code = 137 mmol/L 135-145 5027366122) K (test code = 4.0 mmol/L 3.5-5 7507008414) CL (test code = 105 mmol/L 98-108 3375160201) CO2 TOTAL (test code = 26 mmol/L 23-31 0872835599) AGAP (test code = 2-16 8882254185) BUN (test code = 14 mg/dL 7-23 3468225421) GLUCOSE (test code = 106 mg/dL 70-110 3065619013) CREATININE (test code 0.88 mg/dL 0.6-1.25 = 4666457627) CALCIUM (test code = 9.3 mg/dL 8.6-10.6 9944099562) eGFR Calculation mL/min/1.73m2 (Non-) (test code = 9286832395) eGFR Calculation mL/min/1.73m2 () (test code = 5524971154) SUMIT (test code = SUMIT) Association of [...] or urine or abnormalities in imaging tests). [id number] 19:30:00 Test Item Value Reference Range Interpretation Comments TROPONIN I (test 0.018 ng/mL See_Comment [Automated code = 9448341118) message] The system which generated this result [...] ? Lab Interpretation Normal (test code = 00863-9) [facility]"
[2022-07-13] MEDS ORDERED: ACETAMINOPHEN 500 MG TAB ONE (08:25)
--- NOTE | 2022-07-13 09:28 | EDPHYS ---
Physician Documentation [facility] Name: Mika Alvarado Age: 36 yrs Sex: Male : 1985 Arrival Date: 07/13/2022 Time: 08:04 Bed DIS3 Private MD: ED Physician Roly Dixon HPI: 07/13 08:15 This 36 yrs old Black Male presents to ER via Ambulatory with complaints of Headache, cp Body Aches, Sore Throat. Historical: - Allergies: 08:10 No Known Allergies; jl7 - Home Meds: 08:10 amlodipine oral [Active]; jl7 - PMHx: 08:10 Hypertension; jl7 - PSHx: 08:10 None; jl7 - Immunization history:: Client reports having NOT received the Covid vaccine. - Social history:: Smoking status: Patient reports the use of cigarette tobacco products. ROS: 08:20 Constitutional: Positive for body aches, Negative for fever, poor PO intake. cp 08:20 Eyes: Negative for injury, pain, redness, and discharge. cp 08:20 ENT: Positive for rhinorrhea, sore throat, Negative for drainage from ear(s), ear pain, difficulty swallowing, difficulty handling secretions. 08:20 Cardiovascular: Negative for chest pain. 08:20 Respiratory: Positive for cough, "sounds productive", Negative for wheezing. 08:20 Abdomen/GI: Negative for abdominal pain, vomiting, diarrhea, constipation. 08:20 Neuro: Positive for headache, Negative for altered mental status, weakness. 08:20 All other systems are negative. Exam: 07/12 08:25 Constitutional: The patient appears in no acute distress, alert, awake, cp non-diaphoretic, non-toxic, well developed, well nourished. 08:25 Head/Face: Normocephalic, atraumatic. cp 08:25 Eyes: Periorbital structures: appear normal, Conjunctiva: normal, no exudate, no injection, Lids and lashes: appear normal, bilaterally. 08:25 ENT: External ear(s): are unremarkable, Ear canal(s): are normal, clear, TM's: dullness, bilaterally, Nose: is normal, Mouth: Lips: moist, Oral mucosa: moist, Posterior pharynx: Airway: no evidence of obstruction, patent, Tonsils: bilaterally enlarged, with erythema, no exudate, Uvula: midline, erythema, that is moderate, exudate, is not appreciated. 08:25 Neck: ROM/movement: is normal, is supple, without pain, no range of motions limitations, no meningismus. 08:25 Chest/axilla: Inspection: normal. 08:25 Cardiovascular: Rate: tachycardic, Rhythm: regular. 08:25 Respiratory: the patient does not display signs of respiratory distress, Respirations: normal, no use of accessory muscles, no retractions, labored breathing, is not present, Breath sounds: bronchial sounds, that are mild, are heard diffusely, decreased breath sounds, are not appreciated, stridor, is not appreciated, + upper airway congestion. wheezing: is not appreciated. 08:25 Abdomen/GI: Exam negative for discomfort, distension, guarding, Inspection: abdomen appears normal. 08:25 Neuro: Orientation: to person, place \\T\\ time. Mentation: is normal. Vital Signs: 07/13 08:08 BP 159 / 115; Pulse 112; Resp 17; Temp 98.8(O); Pulse Ox 100% ; Weight 106.59 kg; jl7 Height 5 ft. 9 in. (175.26 cm); Pain 8/10; 08:08 Body Mass Index 34.70 (106.59 kg, 175.26 cm) [facility] 08:08 Pt has not taken morning dose of HTN medication [facility] MDM: 07/12 09:27 Data reviewed: vital signs, nurses notes, lab test result(s). 09:27 Counseling: I had a detailed discussion with the patient and/or guardian regarding: the historical points, exam findings, and any diagnostic results supporting the discharge/admit diagnosis, lab results, to return to the emergency department if symptoms worsen or persist or if there are any questions or concerns that arise at home. 07/13 08:26 Patient medically screened. 07/13 08:11 Order name: Flu; Complete Time: 08:56 [facility] 07/13 08:57 Interpretation: Reviewed. 07/13 08:11 Order name: Strep; Complete Time: 08:56 [facility] 07/13 08:42 Order name: Throat Culture EDMS Administered Medications: 08:24 Drug: Tylenol 1000 mg Route: PO; 7 09:25 CANCELLED (Physician Discretion): amLODIPine 10 mg PO once cp Disposition: 10:26 Co-signature as Attending Physician, Roly Dixon MD. rn Disposition Summary: 07/13/22 09:27 Discharge Ordered Location: Home cp Problem: new cp Symptoms: have improved cp Condition: Stable cp Diagnosis - Acute tonsillitis, unspecified cp - Hypertensive heart disease without heart failure cp - Acute upper respiratory infection, unspecified cp Followup: cp - With: Private Physician - When: 2 - 3 days - Reason: Worsening of condition Discharge Instructions: - Discharge Summary Sheet cp - Hypertension, Adult cp - Tonsillitis cp - Upper Respiratory Infection, Adult cp - Cool Mist Vaporizer cp - Form - Excuse from Work, School, or Physical Activity cp Forms: - Medication Reconciliation Form cp - Thank You Letter cp - Antibiotic Education cp - Prescription Opioid Use cp - Work release form iw Prescriptions: - Bromfed DM 2-30-10 mg/5 mL Oral syrup - take 10 milliliter by ORAL route every 6 hours; 180 milliliter; Refills: 0, cp Product Selection Permitted - amlodipine 5 mg Oral tablet - take 1 tablet by ORAL route once daily; 30 tablet; Refills: 0, Product cp Selection Permitted - Zithromax Z-Tahir 250 mg Oral Tablet - take 1 tablet by ORAL route as directed for 5 days Day 1 - take two (2) tablets cp one time. Day 2, 3, 4 , 5 take one (1) tablet once daily.; 6 tablet; Refills: 0, Product Selection Permitted Signatures: Dispatcher [employer] EDRoly Watt MD MD rn Page, Corey, PA PA Rafael Hankins RN RN jl7 Corrections: (The following items were deleted from the chart) 09:25 09:25 amLODIPine 10 mg PO once ordered. cp cp
--- NOTE | 2022-07-13 09:28 | ER ---
Nurse's Notes [facility] Name: Mika Alvarado Age: 36 yrs Sex: Male : 1985 Arrival Date: 07/13/2022 Time: 08:04 Bed DIS3 Private MD: Diagnosis: Acute tonsillitis, unspecified;Hypertensive heart disease without heart failure;Acute upper respiratory infection, unspecified Presentation: 07/13 08:08 Chief complaint: Patient states: Sore throat, PLAZA, body aches since Tuesday. jl7 Coronavirus screen: headache, sore throat, Client presents with at least one sign or symptom that may indicate coronavirus-19. Ebola Screen: No symptoms or risks identified at this time. Initial Sepsis Screen: Does the patient meet any 2 criteria? No. Patient's initial sepsis screen is negative. Does the patient have a suspected source of infection? No. Patient's initial sepsis screen is negative. Risk Assessment: Do you want to hurt yourself or someone else? Patient reports no desire to harm self or others. Onset of symptoms was July 10, 2022. 08:08 Method Of Arrival: Ambulatory [facility] 08:08 Acuity: MAMADOU 4 jl7 Triage Assessment: 08:10 Headache History: The patient has had previous headaches and this one is similar to jl7 previous episodes. General: Appears in no apparent distress. uncomfortable, Behavior is calm, cooperative, appropriate for age. Pain: Complains of pain in PLAZA Pain currently is 8 out of 10 on a pain scale. Pain began 2-3 days ago. Also complains of no other associated symptoms. Neuro: Level of Consciousness is awake, alert, obeys commands, Oriented to person, place, time, situation. Historical: - Allergies: 08:10 No Known Allergies; jl7 - Home Meds: 08:10 amlodipine oral [Active]; jl7 - PMHx: 08:10 Hypertension; jl7 - PSHx: 08:10 None; jl7 - Immunization history:: Client reports having NOT received the Covid vaccine. - Social history:: Smoking status: Patient reports the use of cigarette tobacco products. Screenin:30 Abuse screen: Denies threats or abuse. Denies injuries from another. Nutritional jl7 screening: No deficits noted. Tuberculosis screening: No symptoms or risk factors identified. Fall Risk None identified. Vital Signs: 08:08 BP 159 / 115; Pulse 112; Resp 17; Temp 98.8(O); Pulse Ox 100% ; Weight 106.59 kg; jl7 Height 5 ft. 9 in. (175.26 cm); Pain 8/10; 08:08 Body Mass Index 34.70 (106.59 kg, 175.26 cm) jl7 08:08 Pt has not taken morning dose of HTN medication jl7 ED Course: 08:04 Patient arrived in ED. rg4 08:06 Cheng Calderón PA is PHCP. cp 08:06 Roly Dixon MD is Attending Physician. cp 08:10 Triage completed. jl7 08:10 Arm band placed on right wrist. jl7 08:30 Patient has correct armband on for positive identification. jl7 08:30 Flu and/or RSV swab sent to lab. Strep swab sent to lab. jl7 08:31 Rafael Silva, SATHYA is Primary Nurse. jl7 09:45 No provider procedures requiring assistance completed. Patient did not have IV access jl7 during this emergency room visit. Administered Medications: 08:24 Drug: Tylenol 1000 mg Route: PO; jl7 09:25 CANCELLED (Physician Discretion): amLODIPine 10 mg PO once cp Medication: 13:33 VIS not applicable for this client. jl7 Outcome: 09:27 Discharge ordered by . cp 09:43 Patient left the ED. iw Signatures: Yue Palafox, RN RN iw Cheng Calderón PA PA cp Garcia, Rubi rg4 Rafael Silva RN RN jl7
[2022-07-13 09:48] VITALS: BP 159/115; TEMP 98.8; O2SAT 100
== END 2022-07-13 09:43 | disposition home or self-care (01) ==
LOC: ER 08:00
DX: J03.90 Acute tonsillitis, unspecified (principal); J06.9 Acute upper respiratory infection, unspecified; I11.9 Hypertensive heart disease without heart failure; I10 Essential (primary) hypertension; F17.210 Nicotine dependence, cigarettes, uncomplicated
CPT/HCPCS: 87070; 87081; 87804; 99283

== ENCOUNTER 2022-09-20 10:28 | Emergency (ER) | payer SELFPAY ==
--- OUTSIDE RECORDS SUMMARY | 2022-09-20 10:32 | XMS REPORT | Continuity of Care Document ---
:1985 Author Organization [facility] t Address [address] [place] [address] Care Team Providers Name Role Phone Aram Nowak MD Attending Clinician Problems This patient has no known problems. Allergies, Adverse Reactions, Alerts Allergy Allergy Status Severity Reaction(s) Onset Inactive Treating Comm ents Source Name Type Date Date Clinician NO KNOWN Drug Active Univers ALLERGIE Class ity of S [facility] Social History Social Habit Start Date Stop Date Quantity Comments Source [facility] to [facility]2 Not sure [facility] [place] (event) [facility] Smoking Status Start Date Stop Date Source Unknown if ever smoked Universit y [facility] Medications Ordered Filled Start Stop Current Ordering Indication Dosage Frequency Signature Comments Components Source Medication Medication Date Date Medication? Clinician (SIG) Name Name cloNIDine 2020- No .2mg 0.2 mg, Univ ers (CATAPRES) 02-11 Oral, ity of tablet 0.2 19:15: 18:22 ONCE, 1 Jesus as mg 00 :00 dose, [facility] 02/12/20 at [address] 1415, STAT lisinopril 0 Yes [id number] 10mg Take 1 Univers 10 mg 6-16 tablet by ity of tablet 00:00: mouth at [place] [address] bedtime. Medical Branch naproxen 2020-0 Yes [id number] 550mg Take 1 U nivers sodium 550 6-16 tablet by ity of mg tablet 00:00: mouth 2 [place] [address] (two) Medical times [place] daily with meals. Vital Signs Vital Name Observation Time Observation Value Comments Source Systolic blood 2020-02-12 20:30:00 130 mm[Hg] Univer sity of pressure [facility] Diastolic blood 2020-02-12 20:30:00 95 mm[Hg] [facility] of pressure [facility] Heart rate 2020-02-12 20:30:00 75 /min [facility] Respiratory rate 2020-02-12 20:30:00 16 /min [facility] Oxygen saturation in 2020-02-12 20:30:00 97 /min [facility] Arterial blood by [facility] Pulse oximetry Branch Body temperature 2020-02-12 17:39:00 37 Aura [facility] Body height 2020-02-12 17:39:00 175.3 cm [facility] Body weight 2020-02-12 17:39:00 97.523 kg [facility] BMI 2020-02-12 17:39:00 31.75 kg/m2 [facility] Procedures Procedure Date / Time Performing Clinician Source Performed BASIC METABOLIC PANEL 2020-02-12 19:37:00 Aram Nowak [facility] (NA, K, CL, CO2, [facility] GLUCOSE, BUN, CREATININE, CA) TROPONIN I 2020-02-12 18:29:00 Aram Nowak [facility] CBC WITH DIFFERENTIAL 2020-02-12 18:29:00 Aram Nowak [facility] NOTICE OF PRIVACY 2020-02-12 17:26:27 Doctor Unassigned, No Univ [facility] PRACTICES Name [facility] CONSENT/REFUSAL FOR 2020-02-12 17:25:57 [facility]igned, [facility] Name [facility] Encounters Start End Encounter Admission Attending Care Care Encounter Source Date/Time Date/Time Type Type Clinicians Facility Department ID 2020-02-12 2020-02-12 Emergency [facility] [id number] Univers 12:27:36 16:00:00 Aram Jones [id number] [facility] [place] [id number] [facility] [id number] Medi [facility] 084 Branch 2020-02-12 2020-02-12 Emergency X [facility] ERT [id number] Univers 12:27:36 12:27:36 [facility] Results Test Description Test Time Test Comments [...] system which ge nerated this result transmit jacqiue reference range: 4.26 - 5 .52 10*6/?L. [...] g/dL 31.2-35 H RDW-SD (test code = 06116-7) 46.5 fL 38.5-51.6 RDW-CV (test code = 788-0) 13.8 % 12.1-15.4 PLT (test code = 777-3) See_Comment [Au tomated message] The system which ge nerated this result transmit jacquie reference range: 150 - 32 8 10*3/?L. The reference range was not used to interpret th is result as normal/abnormal . MPV (test code = 26840-0) 11.2 fL 9.8-13 IPF % (test code = 3.7 % 1.2-10.7 Platelet count measured by 9646540822) fluorescence me thod. NRBC/100 WBC (test code = See_Comment [ Automated message] The 6386047588) system which [employer] nerated this result transmit jacquie reference range: 0.0 - 10 .0 /100 WBCs. The reference r carlos was not used to interpr et this result as normal/abnor mal. NRBC x10^3 (test code = <0.01 See_Comment [Au tomated message] The 5019498546) system which [employer] nerated this result transmit jacquie reference range: 10*3/?L. The reference range was not u sed to interpret this result as normal/abnormal . GRAN MAT (NEUT) % (test code 52.5 % = 770-8) IMM GRAN % (test code = 0.90 % 6398945739) LYMPH % (test code = 736-9) 35.5 % MONO % (test code = 5905-5) 8.6 % EOS % (test code = 713-8) 1.6 % BASO % (test code = 706-2) 0.9 % GRAN MAT x10^3(ANC) (test 3.65 10*3/uL 1.99-6.95 code = 8512021401) IMM GRAN x10^3 (test code = 0.06 10*3/uL 0-0.06 0782705421) LYMPH x10^3 (test code = 2.47 10*3/uL 1.09-3.23 731-0) MONO x10^3 (test code = 0.60 10*3/uL 0.36-1.02 742-7) EOS x10^3 (test code = 0.11 10*3/uL 0.06-0.53 711-2) BASO x10^3 (test code = 0.06 10*3/uL 0.01-0.09 704-7) GIANT PLATELETS (test code = Present See_Comment A [Automated message] The 5908-9) system which [employer] nerated this result transmit jacquie reference range: (none). The reference range was not u sed to interpret this result as normal/abnormal . Lab Interpretation (test Abnormal code = 16679-9) [facility] METABOLIC PANEL (NA, K, CL, CO2, GLUCOSE, BUN, CREATININE, CA)2020-02-12 20:01:00 Test Item Value Reference Range Interpretation Comments NA (test code = 137 mmol/L 135-145 2890657811) K (test code = 4.0 mmol/L 3.5-5 1276305970) CL (test code = 105 mmol/L 98-108 5683906095) CO2 TOTAL (test code = 26 mmol/L 23-31 2373957299) AGAP (test code = 2-16 3872275379) BUN (test code = 14 mg/dL 7-23 7603774079) GLUCOSE (test code = 106 mg/dL 70-110 2967274854) CREATININE (test code 0.88 mg/dL 0.6-1.25 = 1610795733) CALCIUM (test code = 9.3 mg/dL 8.6-10.6 3669316669) eGFR Calculation mL/min/1.73m2 (Non-) (test code = 9409716414) eGFR Calculation mL/min/1.73m2 () (test code = 3422150390) SUMIT (test code = SUMIT) Association of [...] abnormalities in imaging tests). [id number] 19:30:00 Test Item Value Reference Range Interpretation Comments TROPONIN I (test 0.018 ng/mL See_Comment [Automated code = 5297099318) message] The system which generated this result [...] ? Lab Interpretation Normal (test code = 79090-5) [facility]"
--- NOTE | 2022-09-20 10:48 | EDPHYS ---
Physician Documentation [facility] Name: Mika Alvarado Age: 37 yrs Sex: Male : 1985 Arrival Date: 09/20/2022 Time: 10:30 Bed 11 Private MD: ED Physician Jc Koroma HPI: 09/20 10:53 This 37 yrs old Black Male presents to ER via Ambulatory with complaints of Back Pain, snw Leg Pain. 10:53 The patient presents with pain that is acute, with no known mechanism of injury. Onset: snw The symptoms/episode began/occurred acutely. The pain radiates to the right gluteal fold, right hamstring, posterior aspect of right knee and right calf. The problem was sustained from unknown cause. The patient has experienced a previous episode. Historical: - Allergies: 10:40 No Known Allergies; ss - Home Meds: 10:40 amlodipine 5 mg oral tab 1 tab once daily [Active]; ss - PMHx: 10:40 Hypertension; ss - PSHx: 10:40 None; ss - Immunization history:: Client reports having NOT received the Covid vaccine. - Social history:: Smoking status: Patient reports the use of cigarette tobacco products, smokes one-half pack cigarettes per day. ROS: 10:52 Constitutional: Negative for fever, chills, and weight loss, Eyes: Negative for injury, snw pain, redness, and discharge, ENT: Negative for injury, pain, and discharge, Neck: Negative for injury, pain, and swelling, Cardiovascular: Negative for chest pain, palpitations, and edema, Respiratory: Negative for shortness of breath, cough, wheezing, and pleuritic chest pain, Abdomen/GI: Negative for abdominal pain, nausea, vomiting, diarrhea, and constipation, : Negative for injury, bleeding, discharge, and swelling. 10:52 Back: Positive for pain at rest, pain with movement, radiated pain. Exam: 10:49 Constitutional: This is a well developed, well nourished patient who is awake, alert, snw and in no acute distress. Head/Face: Normocephalic, atraumatic. Eyes: Pupils equal round and reactive to light, extra-ocular motions intact. Lids and lashes normal. Conjunctiva and sclera are non-icteric and not injected. Cornea within normal limits. Periorbital areas with no swelling, redness, or edema. ENT: Nares patent. No nasal discharge, no septal abnormalities noted. Tympanic membranes are normal and external auditory canals are clear. Oropharynx with no redness, swelling, or masses, exudates, or evidence of obstruction, uvula midline. Mucous membranes moist. Neck: Trachea midline, no thyromegaly or masses palpated, and no cervical lymphadenopathy. Supple, full range of motion without nuchal rigidity, or vertebral point tenderness. No Meningismus. Chest/axilla: Normal chest wall appearance and motion. Nontender with no deformity. No lesions are appreciated. Cardiovascular: Regular rate and rhythm with a normal S1 and S2. No gallops, murmurs, or rubs. Normal PMI, no JVD. No pulse deficits. Respiratory: Lungs have equal breath sounds bilaterally, clear to auscultation and percussion. No rales, rhonchi or wheezes noted. No increased work of breathing, no retractions or nasal flaring. Abdomen/GI: Soft, non-tender, with normal bowel sounds. No distension or tympany. No guarding or rebound. No evidence of tenderness throughout. Skin: Warm, dry with normal turgor. Normal color with no rashes, no lesions, and no evidence of cellulitis. Neuro: Awake and alert, GCS 15, oriented to person, place, time, and situation. Cranial nerves II-XII grossly intact. Motor strength 5/5 in all extremities. Sensory grossly intact. Cerebellar exam normal. Normal gait. Psych: Awake, alert, with orientation to person, place and time. Behavior, mood, and affect are within normal limits. 10:49 Back: pain, that is moderate, ROM is painful. 10:49 Musculoskeletal/extremity: Extremities: grossly normal except: noted in the right gluteal fold, right hamstring, posterior aspect of right knee and right calf: ROM: limited active range of motion due to pain, limited passive range of motion due to pain, Circulation is intact in all extremities. Sensation intact. 10:49 Neuro: Orientation: is normal, Mentation: is normal, Memory: is normal, Sensation: zinging sensation down right buttock and right posterior leg. Vital Signs: 10:38 BP 154 / 116; Pulse 93; Resp 15; Temp 98.8(TE); Pulse Ox 100% on R/A; Weight 61.23 kg; ss Height 5 ft. 9 in. (175.26 cm); Pain 1010; 10:38 Body Mass Index 19.94 (61.23 kg, 175.26 cm) ss MDM: 10:41 Patient medically screened. snw 10:52 Data reviewed: vital signs, nurses notes. Care significantly affected by the following snw chronic conditions: Hypertension. Counseling: I had a detailed discussion with the patient and/or guardian regarding: the historical points, exam findings, and any diagnostic results supporting the discharge/admit diagnosis, the presence of at least one elevated blood pressure reading (>120/80) during this emergency department visit, the need for outpatient follow up, to return to the emergency department if symptoms worsen or persist or if there are any questions or concerns that arise at home. Special discussion: I have referred the patient to see his PCP for further evaluation of high blood pressure. Based on the history and exam findings, there is no indication for further emergent testing or inpatient evaluation. I discussed with the patient/guardian the need to see the primary care provider for further evaluation of the symptoms. Administered Medications: 11:03 Drug: [place] (HYDROcodone-acetaminophen) 5 mg-325 mg 1 tabs Route: PO; iw 11:03 Drug: predniSONE 40 mg Route: PO; iw 11:03 Drug: Pepcid (famotidine) 20 mg Route: PO; iw Disposition: 11:23 Co-signature as Attending Physician, Jc Koroma DO . ms3 11:23 I was immediately available on-site in the Emergency Department for consultation in the ms3 care of the patient. Disposition Summary: 09/20/22 10:47 Discharge Ordered Location: Home snw Condition: Stable snw Diagnosis - Radiculopathy, lumbar region snw Followup: snw - With: Emergency Department - When: As needed - Reason: Worsening of condition Followup: snw - With: Private Physician - When: 2 - 3 days - Reason: Recheck today's complaints, Continuance of care, Re-evaluation by your physician Discharge Instructions: - Discharge Summary Sheet snw - Hypertension, Adult snw - Radicular Pain snw - Form - Blood Pressure Record Sheet snw Forms: - Medication Reconciliation Form snw - Thank You Letter snw - Antibiotic Education snw - Prescription Opioid Use snw - Work release form snw Prescriptions: - Prednisone 20 mg Oral Tablet - take 2 tablets by ORAL route once daily for 5 days; 10 tablet; Refills: 0, snw Product Selection Permitted - orphenadrine citrate 100 mg Oral Tablet Sustained Release - take 1 tablet by ORAL route 2 times per day As needed; 20 tablet; Refills: 0, snw Product Selection Permitted - Pepcid 20 mg Oral Tablet - take 1 tablet by ORAL route once daily; 20 tablet; Refills: 0, Product snw Selection Permitted Signatures: Kathy Merrill, CNC MACHINIST 2ND SHIFT-C CNC MACHINIST 2ND SHIFT-Csnw Yue Palafox, RN RN iw Toña Conway RN RN ss Jc Koroma DO DO ms3
--- NOTE | 2022-09-20 10:48 | ER ---
Nurse's Notes [facility] Name: Mika Alvarado Age: 37 yrs Sex: Male : 1985 Arrival Date: 09/20/2022 Time: 10:30 Bed 11 Private MD: Diagnosis: Radiculopathy, lumbar region Presentation: 09/20 10:38 Chief complaint: Patient states: pain to R buttock that radiates down R leg that began ss yesterday. HX of sciatica. Coronavirus screen: Client denies travel out of the [place] in the last 14 days. Ebola Screen: Patient denies exposure to infectious person. Patient denies travel to an Ebola-affected area in the 21 days before illness onset. Initial Sepsis Screen: Does the patient meet any 2 criteria? No. Patient's initial sepsis screen is negative. Does the patient have a suspected source of infection? No. Patient's initial sepsis screen is negative. Risk Assessment: Do you want to hurt yourself or someone else? Patient reports no desire to harm self or others. Onset of symptoms was September 19, 2022. 10:38 Method Of Arrival: Ambulatory ss 10:38 Acuity: MAMADOU 4 ss Historical: - Allergies: 10:40 No Known Allergies; ss - Home Meds: 10:40 amlodipine 5 mg oral tab 1 tab once daily [Active]; ss - PMHx: 10:40 Hypertension; ss - PSHx: 10:40 None; ss - Immunization history:: Client reports having NOT received the Covid vaccine. - Social history:: Smoking status: Patient reports the use of cigarette tobacco products, smokes one-half pack cigarettes per day. Vital Signs: 10:38 BP 154 / 116; Pulse 93; Resp 15; Temp 98.8(TE); Pulse Ox 100% on R/A; Weight 61.23 kg; ss Height 5 ft. 9 in. (175.26 cm); Pain 1010; 10:38 Body Mass Index 19.94 (61.23 kg, 175.26 cm) ED Course: 10:30 Patient arrived in ED. mr 10:39 Kathy Merrill FNP-C is [facility]. snw 10:39 Jc Koroma DO is Attending Physician. snw 10:39 Triage completed. ss 10:40 Arm band placed on right wrist. ss 10:48 Yue Palafox, RN is Primary Nurse. iw Administered Medications: 11:03 Drug: [place] (HYDROcodone-acetaminophen) 5 mg-325 mg 1 tabs Route: PO; iw 11:03 Drug: predniSONE 40 mg Route: PO; iw 11:03 Drug: Pepcid (famotidine) 20 mg Route: PO; iw Outcome: 10:47 Discharge ordered by . sntaj 11:12 Patient left the ED. iw Signatures: Kathy Merrill, MARIELLAC TRACTOR DISTRIBUTOR-Csnw Soraya Osorio mr Yue Palafox, RN RN iw Toña Conway, SATHYA RN ss
[2022-09-20] MEDS ORDERED: FAMOTIDINE 20 MG TAB ONE (11:00)
[2022-09-20] MEDS ORDERED: predniSONE 20 MG TAB ONE (11:00)
[2022-09-20] MEDS ORDERED: HYDROCODONE/APAP 5/325 MG TAB ONE (11:01)
[2022-09-20 12:04] VITALS: BP 154/116; TEMP 98.8; O2SAT 100
== END 2022-09-20 11:12 | disposition home or self-care (01) ==
LOC: ER 10:28
DX: M54.16 Radiculopathy, lumbar region (principal)
CPT/HCPCS: 99282; J7512

== ENCOUNTER 2022-09-26 19:38 | Emergency (ER) | payer SELFPAY ==
--- OUTSIDE RECORDS SUMMARY | 2022-09-26 19:40 | XMS REPORT | Continuity of Care Document ---
:1985 Author Organization [facility] t Address [address] [place] [address] Care Team Providers Name Role Phone Aram Nowak MD Attending Clinician Problems This patient has no known problems. Allergies, Adverse Reactions, Alerts Allergy Allergy Status Severity Reaction(s) Onset Inactive Treating Comm ents Source Name Type Date Date Clinician NO KNOWN Drug Active Univers ALLERGIE Class ity of S [facility] Social History Social Habit Start Date Stop Date Quantity Comments Source [facility] to SARS-[facility]2 Not sure [facility] [place] [facility] Smoking Status Start Date Stop Date Source Unknown if ever smoked Universit y [facility] Medications Ordered Filled Start Stop Current Ordering Indication Dosage Frequency Signature Comments Components Source Medication Medication Date Date Medication? Clinician (SIG) Name Name cloNIDine 2020- No .2mg 0.2 mg, Univ ers (CATAPRES) 02-11 Oral, ity of tablet 0.2 19:15: 18:22 ONCE, 1 Jesus as mg 00 :00 [facility] at [facility] 1415, STAT lisinopril 0 Yes [id number] 10mg Take 1 Univers 10 mg 6-16 tablet by ity of tablet 00:00: mouth at [place] [address] bedtime. Medical Branch naproxen 2020-0 Yes [id number] 550mg Take 1 U nivers sodium 550 6-16 tablet by ity of mg tablet 00:00: mouth 2 [place] [address] (two) Medical times [place] daily with meals. Vital Signs Vital Name Observation Time Observation Value Comments Source Systolic blood 2020-02-12 20:30:00 130 mm[Hg] Univer sity of pressure [facility] Diastolic blood 2020-02-12 20:30:00 95 mm[Hg] [facility] Heart rate 2020-02-12 20:30:00 75 /min [facility] Respiratory rate 2020-02-12 20:30:00 16 /min [facility] Oxygen saturation in 2020-02-12 20:30:00 97 /min [facility] Arterial blood by [facility] Pulse oximetry Branch Body temperature 2020-02-12 17:39:00 37 Aura [facility] Body height 2020-02-12 17:39:00 175.3 cm [facility] Body weight 2020-02-12 17:39:00 97.523 kg [facility] BMI 2020-02-12 17:39:00 31.75 kg/m2 [facility] Procedures Procedure Date / Time Performing Clinician Source Performed BASIC METABOLIC PANEL 2020-02-12 19:37:00 Aram Nowak [facility] (NA, K, CL, CO2, [facility] GLUCOSE, BUN, CREATININE, CA) TROPONIN I 2020-02-12 18:29:00 Aram Nowak [facility] CBC WITH DIFFERENTIAL 2020-02-12 18:29:00 Aram Nowak [facility] NOTICE OF PRIVACY 2020-02-12 17:26:27 Doctor Unassigned, No Univ [facility] PRACTICES Name [facility] CONSENT/REFUSAL FOR 2020-02-12 17:25:57 [facility] Encounters Start End Encounter Admission Attending Care Care Encounter Source Date/Time Date/Time Type Type Clinicians Facility Department ID 2020-02-12 2020-02-12 Emergency [facility] [id number] Univers 12:27:36 16:00:00 Aram oJnes [id number] [facility] [place]le [place] [id number] [facility] [id number] Medi [facility] 084 Branch 2020-02-12 2020-02-12 Emergency X [facility] ERT [id number] Univers 12:27:36 12:27:36 [facility] Results Test Description Test Time Test [...] g/dL 31.2-35 H RDW-SD (test code = 62134-0) 46.5 fL 38.5-51.6 RDW-CV (test code = 788-0) 13.8 % 12.1-15.4 PLT (test code = 777-3) See_Comment [Au tomated message] The system which ge nerated this result transmit jacquie reference range: 150 - 32 8 10*3/?L. The reference range was not used to interpret th is result as normal/abnormal . MPV (test code = 88015-5) 11.2 fL 9.8-13 IPF % (test code = 3.7 % 1.2-10.7 Platelet count measured by [id number]) fluorescence me thod. NRBC/100 WBC (test code = See_Comment [ Automated message] The 5867552316) system which Sparks nerated this result transmit jacquie reference range: 0.0 - 10 .0 /100 WBCs. The reference r carlos was not used to interpr et this result as normal/abnor mal. NRBC x10^3 (test code = <0.01 See_Comment [Au tomated message] The 1148301200) system which Sparks nerated this result transmit jacquie reference range: 10*3/?L. The reference range was not u sed to interpret this result as normal/abnormal . GRAN MAT (NEUT) % (test code 52.5 % = 770-8) IMM GRAN % (test code = 0.90 % 8647076385) LYMPH % (test code = 736-9) 35.5 % MONO % (test code = 5905-5) 8.6 % EOS % (test code = 713-8) 1.6 % BASO % (test code = 706-2) 0.9 % GRAN MAT x10^3(ANC) (test 3.65 10*3/uL 1.99-6.95 code = 7787178008) IMM GRAN x10^3 (test code = 0.06 10*3/uL 0-0.06 8958880887) LYMPH x10^3 (test code = 2.47 10*3/uL 1.09-3.23 731-0) MONO x10^3 (test code = 0.60 10*3/uL 0.36-1.02 742-7) EOS x10^3 (test code = 0.11 10*3/uL 0.06-0.53 711-2) BASO x10^3 (test code = 0.06 10*3/uL 0.01-0.09 704-7) GIANT PLATELETS (test code = Present See_Comment A [Automated message] The 5908-9) system which Sparks nerated this result transmit jacquie reference range: (none). The reference range was not u sed to interpret this result as normal/abnormal . Lab Interpretation (test Abnormal code = 94350-5) [facility] METABOLIC PANEL (NA, K, CL, CO2, GLUCOSE, BUN, CREATININE, CA)2020-02-12 20:01:00 Test Item Value Reference Range Interpretation Comments NA (test code = 137 mmol/L 135-145 0467865272) K (test code = 4.0 mmol/L 3.5-5 6310996349) CL (test code = 105 mmol/L 98-108 4330884562) CO2 TOTAL (test code = 26 mmol/L 23-31 4854306295) AGAP (test code = 2-16 4738730944) BUN (test code = 14 mg/dL 7-23 7021553277) GLUCOSE (test code = 106 mg/dL 70-110 5890457457) CREATININE (test code 0.88 mg/dL 0.6-1.25 = 9763332481) CALCIUM (test code = 9.3 mg/dL 8.6-10.6 5854539055) eGFR Calculation mL/min/1.73m2 (Non-) (test code = 8836215867) eGFR Calculation mL/min/1.73m2 () (test code = 6047339722) SUMIT (test code = SUMIT) Association of [...] or urine or abnormalities in imaging tests). [id number] 19:30:00 Test Item Value Reference Range Interpretation Comments TROPONIN I (test 0.018 ng/mL See_Comment [Automated code = 7610779538) message] The system which generated this result [...] ? Lab Interpretation Normal (test code = 91521-0) [facility]"
--- NOTE | 2022-09-26 20:05 | ER ---
Nurse's Notes [facility] Name: Mika Alvarado Age: 37 yrs Sex: Male : 1985 Arrival Date: 09/26/2022 Time: 19:41 Bed IW2 Private MD: Diagnosis: Sciatica, right side Presentation: 09/26 19:59 Chief complaint: Patient states: C/o right sided back/hip hip pain 9/10 since last ll3 week. Coronavirus screen: Vaccine status: Patient reports being unvaccinated. At this time, the client does not indicate any symptoms associated with coronavirus-19. Ebola Screen: No symptoms or risks identified at this time. Initial Sepsis Screen: Does the patient meet any 2 criteria? No. Patient's initial sepsis screen is negative. Does the patient have a suspected source of infection? No. Patient's initial sepsis screen is negative. Risk Assessment: Do you want to hurt yourself or someone else? Patient reports no desire to harm self or others. Onset of symptoms is unknown. 19:59 Method Of Arrival: Ambulatory ll3 19:59 Acuity: MAMADOU 4 ll3 Triage Assessment: 20:01 General: Appears uncomfortable, Behavior is calm, cooperative. Pain: Complains of pain ll3 in right low back Pain radiates to right leg Pain currently is 9 out of 10 on a pain scale. Neuro: Level of Consciousness is awake, alert, obeys commands, Oriented to person, place, time, situation. Derm: Skin is pink, warm \T\ dry. Musculoskeletal: Circulation, motion, and sensation intact. Reports pain in back and right leg. Historical: - Allergies: 20:01 No Known Allergies; ll3 - Home Meds: 20:01 amlodipine 5 mg tab 1 tab once daily [Active]; ll3 - PMHx: 20:01 Hypertension; ll3 - Immunization history:: Client reports having NOT received the Covid vaccine. - Social history:: Smoking status: Patient reports the use of cigarette tobacco products, smokes one-half pack cigarettes per day. Screenin:17 [facility] ED Fall Risk Assessment (Adult) History of falling in the last 3 months, ll3 including since admission No falls in past 3 months (0 pts) Confusion or Disorientation No (0 pts) Intoxicated or Sedated No (0 pts) Impaired Gait No (0 pts) Mobility Assist Device Used No (0 pt) Altered Elimination No (0 pt) Score/Fall Risk Level 0 - 2 = Low Risk Oriented to surroundings, Maintained a safe environment, Educated pt \T\ family on fall prevention, incl call for assistance when getting out of bed. Abuse screen: Denies threats or abuse. Denies injuries from another. Nutritional screening: No deficits noted. Tuberculosis screening: No symptoms or risk factors identified. Assessment: 20:01 General: See triage assessment. ll3 Vital Signs: 19:59 BP 154 / 109; Pulse 85; Resp 18; Temp 97.5(TE); Pulse Ox 100% on R/A; Weight 106.59 kg ll3 (R); Height 5 ft. 9 in. (175.26 cm) (R); Pain 9/10; 19:59 Body Mass Index 34.70 (106.59 kg, 175.26 cm) ll3 ED Course: 19:41 Patient arrived in ED. ja2 19:48 Ilsa Ornelas FNP-C is [facility]. kb 19:48 Jc Koroma DO is Attending Physician. kb 20:01 Triage completed. ll3 20:01 Arm band placed on. ll3 20:17 Patient has correct armband on for positive identification. Bed in low position. Call ll3 light in reach. Side rails up X 1. Adult w/ patient. 20:17 No provider procedures requiring assistance completed. Patient did not have IV access ll3 during this emergency room visit. Administered Medications: 20:13 Drug: [place] (HYDROcodone-acetaminophen) 10 mg-325 mg 1 tabs Route: PO; ll3 20:16 Follow up: Response: Medication administered at discharge. ll3 20:13 Drug: SOLU-Medrol (methylPREDNISolone sodium succinate) 125 mg Route: IM; Site: right ll3 gluteus; 20:16 Follow up: Response: Medication administered at discharge. ll3 Medication: 20:17 VIS not applicable for this client. ll3 Outcome: 20:05 Discharge ordered by . kb 20:17 Discharged to home ambulatory, with significant other. ll3 20:17 Condition: stable 20:17 Discharge instructions given to patient, significant other, Instructed on discharge instructions, follow up and referral plans. medication usage, Demonstrated understanding of instructions, follow-up care, medications, Prescriptions given X 2. 20:18 Patient left the ED. ll3 Signatures: Ilsa Ornelas, TUBE FORMER OPERATOR-C TUBE FORMER OPERATOR-Ckb Annmarie Bhakta Lynsea, RN RN ll3
--- NOTE | 2022-09-26 20:05 | EDPHYS ---
Physician Documentation [facility] Name: Mika Alvarado Age: 37 yrs Sex: Male : 1985 Arrival Date: 09/26/2022 Time: 19:41 Bed IW2 Private MD: ED Physician Jc Koroma HPI: 09/26 20:10 This 37 yrs old Black Male presents to ER via Ambulatory with complaints of Leg Pain. kb 20:10 The patient has been recently seen at the [facility] Emergency kb Department, last week. 20:10 The patient presents with pain that is acute. The symptoms are located in the right low kb back. The pain radiates to the right leg. The problem was sustained without known cause. Onset: The symptoms/episode began/occurred 1 week(s) ago. Modifying factors: The patient symptoms are alleviated by nothing, the patient symptoms are aggravated by any movement. Associated signs and symptoms: The patient has no apparent associated signs or symptoms. Severity of symptoms: At their worst the symptoms were moderate, in the emergency department the symptoms are unchanged. The patient has not experienced similar symptoms in the past. Patient reports right low back pain that radiates down right leg for a week. States that he was seen here diagnosed with sciatica and given prescription for steroids. States he was unable to take the steroids due to constant hiccuping after first dose.. Historical: - Allergies: 20:01 No Known Allergies; ll3 - Home Meds: 20:01 amlodipine 5 mg tab 1 tab once daily [Active]; ll3 - PMHx: 20:01 Hypertension; ll3 - Immunization history:: Client reports having NOT received the Covid vaccine. - Social history:: Smoking status: Patient reports the use of cigarette tobacco products, smokes one-half pack cigarettes per day. ROS: 20:09 Constitutional: Negative for fever, chills, and weight loss. kb 20:09 Back: Positive for pain with movement, of the right low back. 20:09 All other systems are negative. Exam: 20:09 Constitutional: This is a well developed, well nourished patient who is awake, alert, kb and in no acute distress. Head/Face: Normocephalic, atraumatic. ENT: Moist Mucous membranes Cardiovascular: Regular rate and rhythm with a normal S1 and S2. No gallops, murmurs, or rubs. No pulse deficits. Respiratory: Respirations even and unlabored. No increased work of breathing. Talking in full sentences Abdomen/GI: Soft, non-tender. No distention Skin: Warm, dry with normal turgor. Normal color. MS/ Extremity: Pulses equal, no cyanosis. Neurovascular intact. Full, normal range of motion. Neuro: Awake and alert, GCS 15, oriented to person, place, time, and situation. Moves all extremities. Normal gait. 20:09 Back: pain, that is moderate, of the right low back, ROM is painful, normal spinal alignment noted, CVA tenderness, is absent. Vital Signs: 19:59 BP 154 / 109; Pulse 85; Resp 18; Temp 97.5(TE); Pulse Ox 100% on R/A; Weight 106.59 kg ll3 (R); Height 5 ft. 9 in. (175.26 cm) (R); Pain 9/10; 19:59 Body Mass Index 34.70 (106.59 kg, 175.26 cm) ll3 MDM: 19:59 Patient medically screened. kb 20:08 Differential diagnosis: contusion, sciatica, disc herniation. Data reviewed: vital kb signs, nurses notes. Test considered but Not performed: CT: CT scan considered, but pt has had no injury or trauma, no spinal tenderness. Counseling: I had a detailed discussion with the patient and/or guardian regarding: the historical points, exam findings, and any diagnostic results supporting the discharge/admit diagnosis, the need for outpatient follow up, a family practitioner, to return to the emergency department if symptoms worsen or persist or if there are any questions or concerns that arise at home. Administered Medications: 20:13 Drug: Pitkin (HYDROcodone-acetaminophen) 10 mg-325 mg 1 tabs Route: PO; ll3 20:16 Follow up: Response: Medication administered at discharge. ll3 20:13 Drug: SOLU-Medrol (methylPREDNISolone sodium succinate) 125 mg Route: IM; Site: right ll3 gluteus; 20:16 Follow up: Response: Medication administered at discharge. ll3 Disposition: 09/27 01:20 Co-signature as Attending Physician, Jc Koroma DO I reviewed the patient's care ms3 provided by the Advanced Practice Provider and agree with the diagnosis and treatment plan. Disposition Summary: 09/26/22 20:05 Discharge Ordered Location: Home kb Condition: Stable kb Diagnosis - Sciatica, right side kb Followup: kb - With: Emergency Department - When: As needed - Reason: Worsening of condition Followup: kb - With: Private Physician - When: 2 - 3 days - Reason: Recheck today's complaints, Continuance of care, Re-evaluation by your physician Discharge Instructions: - Discharge Summary Sheet kb - Sciatica, [id number] kb - Back Exercises, [id number] kb Forms: - Medication Reconciliation Form kb - Thank You Letter kb - Antibiotic Education kb - Prescription Opioid Use kb - Work release form ll3 Prescriptions: - Diclofenac Sodium 75 mg Oral tablet,delayed release (DR/EC) - take 1 tablet by ORAL route 2 times per day As needed; 30 tablet; Refills: 0, kb Product Selection Permitted - Norvasc 5 mg Oral Tablet - take 1 tablet by ORAL route once daily; 20 tablet; Refills: 0, Product kb Selection Permitted Signatures: Ilsa Ornelas, LEONID-C VISUALIZER-Jc Vásquez DO DO ms3 Roney Perez, RN RN ll3 Corrections: (The following items were deleted from the chart) 09/26 20:11 20:10 The patient has not recently seen a physician, kb kb
[2022-09-26] MEDS ORDERED: METHYLPREDNISOLONE 125 MG INJ ONE (20:11)
[2022-09-26] MEDS ORDERED: HYDROCODONE/APAP 10/325 TAB ONE (20:11)
[2022-09-26 21:20] VITALS: BP 154/109; TEMP 97.5; O2SAT 100
== END 2022-09-26 20:18 | disposition home or self-care (01) ==
LOC: ER 19:38
DX: M54.31 Sciatica, right side (principal)
CPT/HCPCS: 96372; 99283; J2930

== ENCOUNTER 2024-02-22 14:51 | Emergency (ER) | payer SELFPAY ==
--- OUTSIDE RECORDS SUMMARY | 2024-02-22 14:54 | XMS REPORT | Continuity of Care Document ---
Author Name Unknown Address [address] [facility] [address] [place] [address] [facility] thconnect Address [address] [place] [address] Care Team Providers Care Acid Conditioner Name Role Phone Aram Nowak MD Attending Clinician Allergies, Adverse Reactions, Alerts Allergy Name Allergy Type Status Severity Reaction(s) Onset Date Inactive Date Treating Clinician Comments Source NO KNOWN ALLERGIE S Drug Class Active [facility] Social History Social Habit Start Date Stop Date Quantity Comments Source Sex Assigned At [facility] Exposure to SARS-CoV-2 (event) Not sure [facility] Smoking Status Start Date Stop Date Source Unknown if ever smoked [facility] Medications Ordered Medication Name Filled Medication Name Start Date Stop Date Current Medication? Ordering Clinician Indication Dosage Frequency Signature (SIG) Comments Components Source cloNIDine (CATAPRES) tablet 0.2 mg 02-11 19:15: 00 02-11 18:22 :00 No .2mg 0.2 mg, Oral, ONCE, 1 dose, 02/12/20 at 1415, STAT [facility] lisinopril 10 mg tablet 02-11 00:00: 00 Yes [id number] 10mg Take 1 tablet by mouth at bedtime. [facility] naproxen sodium 550 mg tablet 02-11 00:00: 00 Yes [id number] 550mg Take 1 tablet by mouth 2 (two) times daily with meals. [facility] Vital Signs Vital Name Observation Time Observation Value Comments S viral Systolic blood pressure 2020-02-12 20:30:00 130 mm[Hg] [facility] Diastolic blood pressure 2020-02-12 20:30:00 95 mm[Hg] [facility] Heart rate 2020-02-12 20:30:00 75 /min [facility] Respiratory rate 2020-02-12 20:30:00 16 /min [facility] Oxygen saturation in Arterial blood by Pulse oximetry 2020-02-12 20:30:00 97 /min [facility] Body temperature 2020-02-12 17:39:[address] [facility] Body height 2020-02-12 17:39:00 175.3 cm [facility] Body weight 2020-02-12 17:39:00 97.523 kg [facility] BMI 2020-02-12 17:39:00 31.75 kg/m2 [facility] Procedures Procedure Date / Time Performed Performing Clinician Source BASIC METABOLIC PANEL (NA, K, CL, CO2, GLUCOSE, BUN, CREATININE, CA) 2020-02-12 19:37:[address] [facility] TROPONIN I 2020-02-12 18:29:00 Aram Nowak [facility] CBC WITH DIFFERENTIAL 2020-02-12 18:29:[address] [facility] NOTICE OF PRIVACY PRACTICES 2020-02-12 17:26:27 Doctor Unassigned, [place] [facility] CONSENT/REFUSAL FOR DIAGNOSIS AND TREATMENT 2020-02-12 17:25:57 Doctor Unassigned, [place] [facility] Encounters Start Date/Time End Date/Time Encounter Type Admission Type Attending Clinicians Care Facility Care Department Encounter ID Source 2023-01-03 11:20:43 2023-01-03 11:20:43 Outpatient [facility] [id number] [facility] 2022-10-12 12:00:40 2022-10-12 12:00:40 Outpatient S[facility] [id number] L[address] [place] 2022-10-08 10:11:37 2022-10-08 10:11:37 Outpatient SFA S[facility] [id number] [address] [place] 2022-10-06 11:24:56 2022-10-06 11:24:[address] [facility] [id number] L[address] 2020-02-12 12:27:36 2020-02-12 16:00:00 Emergency Aram Nowak [facility] [id number] [facility] 2020-02-12 12:27:36 2020-02-12 12:27:36 Emergency X [facility] ERT [id number] [facility] Results Test Description Test Time Test Comments Results Result Co mments Source LIPID [id number] 03:51:01* Test Item Value Reference Range Interpretation Comme nts CHOLESTEROL (test code = 2210) 185 MG/DL <200 TRIGLYCERIDES (test code = 2232) 86 MG/DL <150 HDL CHOLESTEROL (test code = 2220) 57 MG/DL >39 CALC LDL CHOL (test code = 2237) 110 MG/DL <100 H NOTE: CALCULATED LDL IS BASED ON BUCK-WILLIAMSON METHOD WHICHINCLUDES ADJUSTABLE TRIGLYCERIDE:VLDL CHOLESTEROL RATIO.THIS FACTOR VARIES BY MEASURED TRIGLYCERIDE AND NON-HDLCHOLESTEROL CONCENTRATIONS WITH INCREASED CALCULATED LDL SEENIN HIGHER TRIGLYCERIDE OR LOWER NON-HDL SPECIMENS. FOR MOREINFORMATION, SEE CLIENT ANNOUNCEMENT AT [email or web address] /CalcLDL-C RISK RATIO LDL/HDL (test code = 2238) 1.93 RATIO <3.55 COMPREHENSIVE METABOLIC [id number] 03:51:01* Test Item Value Reference Range Interpretation Comme nts GLUCOSE (test code = 2217) 103 MG/DL 70-99 H BUN (test code = 2208) 10 MG/DL 6-20 CREATININE (test code = 2214) 1.04 MG/DL 0.80-1.40 eGFR (2020 CKD-EPI) (test code = 46655) 95 ML/MIN/1.73 >60 CALC BUN/CREAT (test code = 2235) 10 RATIO 6-28 SODIUM (test code = 2231) 145 MEQ/L 133-146 POTASSIUM (test code = 2228) 4.1 MEQ/L 3.5-5.4 CHLORIDE (test code = 2215) 101 MEQ/L 95-107 CARBON DIOXIDE (test code = 2205) 28 MEQ/L 19-31 CALCIUM (test code = 2208) 10.0 MG/DL 8.5-10.5 PROTEIN, TOTAL (test code = 2228) 7.2 G/DL 6.1-8.3 ALBUMIN (test code = 1) 4.7 G/DL 3.5-5.2 CALC GLOBULIN (test code = 0) 2.5 G/DL 1.9-3.7 CALC A/G RATIO (test code = 2233) 1.9 RATIO 1.0-2.6 BILIRUBIN, TOTAL (test code = 2206) 0.6 MG/DL See_Comment [Automated [employer]] The system which generated this result transmitted reference range: <=1.2. The reference range was not used to interpret this result as normal/abnormal. ALKALINE PHOSPHATASE (test code = 2203) 59 U/L 40-117 AST (test code = 2217) 21 U/L 9-50 ALT (test code = 2218) 16 U/L 5-50 CBC WITH [id number] 20:26:00* Test Item Value Reference Range Interpretation Comme nts WBC (test code = 6690-2) See_Comment [Automated [employer]] The system which generated this result transmitted reference range: 4.20 - 10.70 10*3/?L. The reference range was not used to interpret this result as normal/abnormal. RBC (test code = 789-8) See_Comment [Automated [employer]] The system which generated this result transmitted reference range: 4.26 - 5.52 10*6/?L. The reference range was not used to interpret this result as normal/abnormal. HGB (test code = 718-7) 14.5 g/dL 12.2-16.4 HCT (test code = 4544-3) 40.6 % 38.4-49.3 MCV (test code = 787-2) 91.2 fL 81.7-95.6 MCH (test code = 785-6) 32.6 pg 26.1-32.7 MCHC (test code = 786-4) 35.7 g/dL 31.2-35 H RDW-SD (test code = 00870-1) 46.5 fL 38.5-51.6 RDW-CV (test code = 788-0) 13.8 % 12.1-15.4 PLT (test code = 777-3) See_Comment [Automated [employer] ge] The system which generated this result transmitted reference range: 150 - 328 10*3/?L. The reference range was not used to interpret this result as normal/abnormal. MPV (test code = 61061-7) 11.2 fL 9.8-13 IPF % (test code = 7528340463) 3.7 % 1.2-10.7 Platelet count measured by fluorescence method. NRBC/100 WBC (test code = 0555810466) See_Comment [Automated [employer] ssage] The system which generated this result transmitted reference range: 0.0 - 10.0 /100 WBCs. The reference range was not used to interpret this result as normal/abnormal. NRBC x10^3 (test code = 9764537266) <0.01 See_Comment [[employer]ated [employer]] The system which generated this result transmitted reference range: 10*3/?L. The reference range was not used to interpret this result as normal/abnormal. GRAN MAT (NEUT) % (test code = 770-8) 52.5 % IMM GRAN % (test code = 7967151560) 0.90 % LYMPH % (test code = 736-9) 35.5 % MONO % (test code = 5905-5) 8.6 % EOS % (test code = 713-8) 1.6 % BASO % (test code = 706-2) 0.9 % GRAN MAT x10^3(ANC) (test code = 1726353480) 3.65 10*3/uL 1.99-6.95 IMM GRAN x10^3 (test code = 1823280489) 0.06 10*3/uL 0-0.06 LYMPH x10^3 (test code = 731-0) 2.47 10*3/uL 1.09-3.23 MONO x10^3 (test code = 742-7) 0.60 10*3/uL 0.36-1.02 EOS x10^3 (test code = 711-2) 0.11 10*3/uL 0.06-0.53 BASO x10^3 (test code = 704-7) 0.06 10*3/uL 0.01-0.09 GIANT PLATELETS (test code = 5908-9) Present See_Comment A [Automated [employer]] The system which generated this result transmitted reference range: (none). The reference range was not used to interpret this result as normal/abnormal. Lab Interpretation (test code = 95344-8) Abnormal [facility] METABOLIC PANEL (NA, K, CL, CO2, GLUCOSE, BUN, CREATININE, CA)2020-02-12 20:01:00* Test Item Value Reference Range Interpretation Comme nts NA (test code = 1940496262) 137 mmol/L 135-145 K (test code = 9485805503) 4.0 mmol/L 3.5-5 CL (test code = 8407225891) 105 mmol/L 98-108 CO2 TOTAL (test code = 0175370182) 26 mmol/L 23-31 AGAP (test code = 4042347521) 2-16 BUN (test code = 2564541428) 14 mg/dL 7-23 GLUCOSE (test code = 1463809136) 106 mg/dL 70-110 CREATININE (test code = 4169376817) 0.88 mg/dL 0.6-1.25 CALCIUM (test code = 8088634645) 9.3 mg/dL 8.6-10.6 eGFR Calculation (Non-) (test code = 0781289533) mL/min/1.73m2 eGFR Calculation () (test code = 8134325392) mL/min/1.73m2 SUMIT (test code = SUMIT) Association of [...] or urine or abnormalities in imaging tests). [id number] 19:30:00* Test Item Value Reference Range Interpretation Comme nts TROPONIN I (test code = 2145548357) 0.018 ng/mL See_Comment [Automated message] The system which generated this result transmitted reference range: <=0.034. The reference range was not used to interpret this result as normal/abnormal. SUMIT (test code = SUMIT) Equal or Less than 0.034 ng/ml---Normal ?Note: Cardiac troponin begins to [...] patient's use of biotin. ? Lab Interpretation (test code = 47497-8) Normal [facility]"
--- NOTE | 2024-02-22 15:32 | RAD REPORT ---
EXAM DESCRIPTION: RAD - Chest Single View - 02/22/2024 3:26 pm CLINICAL HISTORY: COUGH COMPARISON: Chest Single View dated 05/27/2023; Chest Single View dated 03/28/2017 FINDINGS: Lines: None. Lungs: No evidence of edema or pneumonia. Pleural: No significant pleural effusions or pneumothorax. Cardiac: The heart size is within normal limits. Mediastinum: Within normal limits. Bones: No acute fractures. Other: None IMPRESSION: No acute cardiopulmonary disease.
[2024-02-22] MEDS ORDERED: NA CHLORIDE 0.9% 500 ML ONE (15:47)
[2024-02-22 15:56] LABS: Absolute Lymphocytes (CBC) 1.8 K/uL (0.7-4.9); Absolute Monocytes 0.4 K/uL (0.1-1.3); Absolute Neutrophil 4.1 K/uL (1.8-8.0); Basophils % 0.6 % (0-1.3); Eosinophils % 0.8 % (0-4.4); Hematocrit 42.1 % (39.6-49.0); Lymphocytes % 27.5 % (15.3-44.8); MCH 31.5 pg (27.0-35.0); MCHC 33.2 g/dL (32.0-36.0); MCV 94.8 fL (80-100); MPV 8.4 fL (7.6-11.3); Monocytes % 6.8 % (3.3-12.3); Neutrophils % 64.3 % (41.7-73.7); Platelets 314 thou/uL (152-406); RBC Red Blood Cell Count 4.44 M/uL (4.33-5.43)
[2024-02-22 16:11] LABS: ALT/SGPT 25 U/L (16-61); AST/SGOT 15 U/L (15-37); Albumin 3.7 g/dL (3.4-5.0); Albumin/Globulin Ratio 1.1 (1.1-1.8); Alkaline Phosphatase 50 U/L (45-117); Anion Gap 7.5 mEq/L (5.0-15.0); BUN Blood Urea Nitrogen 10 mg/dL (7-18); Bicarbonate 30 mEq/L (21-32); Bilirubin Total 0.4 mg/dL (0.2-1.0); Globulin 3.5 g/dL (2.3-3.5); Glomerular Filtration Rate 98 ml/min (=/>90); Glucose Level 138 mg/dL (74-106); NT PRO-BNP 36 pg/mL (<125); Potassium 3.5 mEq/L (3.5-5.1); Protein, Total 7.2 g/dL (6.4-8.2); Sodium Level 140 mEq/L (136-145); Troponin High Sensitivity 5.5 pg/mL (<58.9)
[2024-02-22 16:17] LABS: Specific Gravity 1.028 (1.005-1.030); Urine Bilirubin NEGATIVE (Negative); Urine Blood Negative (Negative); Urine Clarity Clear (Clear); Urine Color Light-Yellow (Yellow); Urine Glucose NEGATIVE (Negative); Urine Ketones NEGATIVE (Negative); Urine Microscopic Reflex YN NO UMIC; Urine Nitrite NEGATIVE (Negative); Urine Protein NEGATIVE (Negative); Urine Urobilinogen Normal (Normal); Urine pH 5.5 (5.0-7.0)
[2024-02-22 16:28] LABS: Bilirubin Direct < 0.2 mg/dL (0-0.2); Bilirubin Indirect, Calculated 0.2 mg/dL (0.2-0.8)
--- NOTE | 2024-02-22 16:40 | EDPHYS ---
Physician Documentation [facility] Name: Mika Alvarado Age: 38 yrs Sex: Male : 1985 Arrival Date: 02/22/2024 Time: 14:51 Bed 14 Private MD: ED Physician Cheng Wilkerson HPI: 02/21 16:33 This 38 yrs old Black Male presents to ER via Ambulatory with complaints of High Blood zehra Pressure. 16:33 The patient has elevated blood pressure and discovered this at home, with a home zehra device. Onset: The symptoms/episode began/occurred today, yesterday. Modifying factors: The symptoms are aggravated by activity, The symptoms are alleviated by remaining still. Associated signs and symptoms: Pertinent positives: headache. Severity of symptoms: At its worst the blood pressure was moderate, in the emergency department the blood pressure is unchanged. The patient has experienced similar episodes in the past, multiple times. Historical: - Allergies: 15:14 No Known Allergies; tl4 - PMHx: 15:14 Hypertension; tl4 - Immunization history:: Adult Immunizations unknown. - Infectious Disease History:: Denies. - Social history:: Smoking status: Patient reports the use of cigarette tobacco products, smokes one-half pack cigarettes per day, Reported history of juuling and/or vaping. - Family history:: not pertinent. ROS: 16:33 Constitutional: Negative for fever, chills, and weight loss, Eyes: Negative for injury, zehra pain, redness, and discharge, ENT: Negative for injury, pain, and discharge, Neck: Negative for injury, pain, and swelling, Cardiovascular: Negative for chest pain, palpitations, and edema, Respiratory: Negative for shortness of breath, cough, wheezing, and pleuritic chest pain, Abdomen/GI: Negative for abdominal pain, nausea, vomiting, diarrhea, and constipation, Back: Negative for injury and pain, : Negative for injury, bleeding, discharge, and swelling, MS/Extremity: Negative for injury and deformity, Skin: Negative for injury, rash, and discoloration, Psych: Negative for depression, anxiety, suicide ideation, homicidal ideation, and hallucinations, Allergy/Immunology: Negative for hives, rash, and allergies, Endocrine: Negative for neck swelling, polydipsia, polyuria, polyphagia, and marked weight changes, Hematologic/Lymphatic: Negative for swollen nodes, abnormal bleeding, and unusual bruising, 16:33 Neuro: Positive for headache, Exam: 16:33 Constitutional: This is a well developed, well nourished patient who is awake, alert, zehra and in no acute distress. Head/Face: Normocephalic, atraumatic. Eyes: Pupils equal round and reactive to light, extra-ocular motions intact. Lids and lashes normal. Conjunctiva and sclera are non-icteric and not injected. Cornea within normal limits. Periorbital areas with no swelling, redness, or edema. ENT: Nares patent. No nasal discharge, no septal abnormalities noted. Tympanic membranes are normal and external auditory canals are clear. Oropharynx with no redness, swelling, or masses, exudates, or evidence of obstruction, uvula midline. Mucous membranes moist. Neck: Trachea midline, no thyromegaly or masses palpated, and no cervical lymphadenopathy. Supple, full range of motion without nuchal rigidity, or vertebral point tenderness. No Meningismus. Chest/axilla: Normal chest wall appearance and motion. Nontender with no deformity. No lesions are appreciated. Cardiovascular: Regular rate and rhythm with a normal S1 and S2. No gallops, murmurs, or rubs. Normal PMI, no JVD. No pulse deficits. Respiratory: Lungs have equal breath sounds bilaterally, clear to auscultation and percussion. No rales, rhonchi or wheezes noted. No increased work of breathing, no retractions or nasal flaring. Abdomen/GI: Soft, non-tender, with normal bowel sounds. No distension or tympany. No guarding or rebound. No evidence of tenderness throughout. Back: No spinal tenderness. No costovertebral tenderness. Full range of motion. Male : Normal genitalia with no discharge or lesions. Skin: Warm, dry with normal turgor. Normal color with no rashes, no lesions, and no evidence of cellulitis. MS/ Extremity: Pulses equal, no cyanosis. Neurovascular intact. Full, normal range of motion. Neuro: Awake and alert, GCS 15, oriented to person, place, time, and situation. Cranial nerves II-XII grossly intact. Motor strength 5/5 in all extremities. Sensory grossly intact. Cerebellar exam normal. Normal gait. Psych: Awake, alert, with orientation to person, place and time. Behavior, mood, and affect are within normal limits. 16:33 ECG was reviewed by the Attending Physician. Vital Signs: 15:12 BP 168 / 102; Pulse 96; Resp 20; Temp 97.7(TE); Pulse Ox 100% on R/A; Weight 97.52 kg; tl4 Height 5 ft. 9 in. ; Pain 6/10; 16:13 BP 150 / 98; Pulse 81; Resp 18; Pulse Ox 99% ; Pain 6/10; nj1 17:00 BP 154 / 100; Pulse 75; Resp 17; Pulse Ox 99% on R/A; nj1 15:12 Body Mass Index 31.75 (97.52 kg, 175.26 cm) tl4 15:12 Pain Scale: Adult tl4 16:13 Pain Scale: Adult nj1 MDM: 14:55 Patient medically screened. zehra 16:37 Differential diagnosis: hypertensive crisis, Malignant HTN, CVA, intracerebral zehra hemorrhage. Data reviewed: vital signs, nurses notes, lab test result(s), EKG, radiologic studies, plain films. Consideration of Admission/Observation Escalation of care including admission/observation considered. I considered the following discharge prescriptions or medication management in the emergency department Medications were administered in the Emergency Department. See MAR. Independent interpretation of the following test(s) in the Emergency Department EKG: See my EKG interpretation above. Test considered but Not performed: CT: no ct head. Historians other than the Patient: Spouse/Significant Other: significant other. Care significantly affected by the following chronic conditions: Hypertension, Obesity. Counseling: I had a detailed discussion with the patient and/or guardian regarding the historical points, exam findings, and any diagnostic results supporting the discharge/admit diagnosis, lab results, radiology results, the need for outpatient follow up, for definitive care, a consumer loan underwriter, a family practitioner. 02/21 14:56 Order name: Basic Metabolic Panel; Complete Time: 16:33 [facility] 02/21 14:56 Order name: CBC with Diff; Complete Time: 16: [facility] 02/21 14:56 Order name: LFT's; Complete Time: 16:33 02/21 14:56 Order name: Magnesium; Complete Time: 16:33 02/21 14:56 Order name: NT PRO-BNP; Complete Time: 16:33 02/21 14:56 Order name: Troponin HS; Complete Time: 16:33 [facility] 02/21 14:56 Order name: Urinalysis w/ reflexes; Complete Time: 16:27 [facility] 02/21 14:56 Order name: XRAY Chest (1 view); Complete Time: 16:27 [facility] 02/21 14:56 Order name: Cardiac monitoring; Complete Time: 16:06 [facility] 02/21 14:56 Order name: EKG - Nurse/Tech; Complete Time: 16:30 [facility] 02/21 14:56 Order name: IV Saline Lock; Complete Time: 15:48 [facility] 02/21 14:56 Order name: Labs collected and sent; Complete Time: 15:48 [facility] 02/21 14:56 Order name: O2 Per Protocol; Complete Time: 16:06 [facility] 02/21 14:56 Order name: O2 Sat Monitoring; Complete Time: 16:06 [facility] EC:33 Rate is 81 beats/min. Rhythm is regular. QRS [place] is Normal. [place] interval is normal. QRS zehra interval is normal. QT interval is normal. No Q waves. T waves are Normal. No ST changes noted. Clinical impression: NSR w/ Non-specific ST/T Changes, LVH, and No evidence of ischemia. Interpreted by me. Reviewed by me. Administered Medications: 15:45 Drug: NS 0.9% IV 500 ml IV at bolus once Route: IV; Rate: bolus; Site: right forearm; nj1 17:09 Follow up: Response: No adverse reaction nj1 16:54 Drug: Aspirin PO Chewable Tablet 81 mg PO once Route: PO; kj2 17:09 Follow up: Response: No adverse reaction nj1 16:54 Drug: Norvasc PO 10 mg PO once Route: PO; kj2 17:09 Follow up: Response: No adverse reaction nj1 16:58 Not Given (Pt dischargedd): ns 0.9% 1000 ml IV at 125 ml/hr continuous nj1 Disposition Summary: 02/22/24 16:39 Discharge Ordered Notes: Location: Home zehra Problem: new zehra Symptoms: have improved zehra Condition: Stable zehra Diagnosis - Essential (primary) hypertension zehra - Tobacco abuse counseling zehra - Tobacco use zehra Followup: zehra - With: Private Physician - When: 2 - 3 days - Reason: Recheck today's complaints, Continuance of care, Re-evaluation by your physician Followup: zehra - With: Tremayne Neff, DO - When: 2 - 3 days - Reason: Recheck today's complaints, Re-evaluation by your physician Followup: zehra - With: Lemuel Downing MD - When: 2 - 3 days - Reason: Recheck today's complaints, Re-evaluation by your physician Discharge Instructions: - Discharge Summary Sheet zehra - Hypertension, Adult zehra - Steps to Quit Smoking zehra - Health Risks of Smoking zehra - Hypertension, Adult, [id number] zehra - How to Take Your Blood Pressure, [id number] zehra - Aspirin and Your Heart zehra - Managing Your Hypertension zehra Forms: - Medication Reconciliation Form zehra - Antibiotic Education zehra - Prescription Opioid Use zehra - Patient Portal Instructions zehra - Leadership Thank You Letter zehra - Work release form nj1 Prescriptions: - Norvasc 5 mg Oral tablet - take 1 tablet ORAL route once daily; 30 tablet; Refills: 0, Product Selection zehra Permitted Signatures: Dispatcher [employer] EDMS Cheng Wilkerson MD MD cha [place], Norma RN RN nj1 Saurabh Byrnes RN RN tl4 Dione Fuentes RN RN kj2 Corrections: (The following items were deleted from the chart) 14:57 14:57 BASIC METABOLIC PANEL+C.LAB.BRZ ordered. EDMS EDMS 14:57 14:57 CBC+H.LAB.BRZ ordered. EDMS EDMS 14:57 14:57 HEPATIC FUNCTION+C.LAB.BRZ ordered. EDMS EDMS 14:57 14:57 MAGNESIUM+C.LAB.BRZ ordered. EDMS EDMS 14:57 14:57 PROBNP+C.LAB.BRZ ordered. EDMS EDMS 14:57 14:57 Troponin High Sensitivity+C.LAB.BRZ ordered. EDMS EDMS 14:57 14:57 Urinalysis+U.LAB.BRZ ordered. EDMS EDMS
--- NOTE | 2024-02-22 16:40 | ER ---
Nurse's Notes [facility] Name: Mika Alvarado Age: 38 yrs Sex: Male : 1985 Arrival Date: 02/22/2024 Time: 14:51 Bed 14 Private MD: Diagnosis: Essential (primary) hypertension;Tobacco abuse counseling;Tobacco use Presentation: 02/21 15:12 Chief complaint: Patient states: Pt states he thinks his blood pressure is high. Pt c/o tl4 PLAZA, left side facial swelling, and feeling "not right". Pt states he has not taken BP meds in approx 1 month. Coronavirus screen: At this time, the client does not indicate any symptoms associated with coronavirus-19. Ebola Screen: No symptoms or risks identified at this time. Initial Sepsis Screen: Does the patient meet any 2 criteria? No. Patient's initial sepsis screen is negative. Does the patient have a suspected source of infection? No. Patient's initial sepsis screen is negative. Risk Assessment: Do you want to hurt yourself or someone else? Patient reports no desire to harm self or others. Onset of symptoms was February 18, 2024. 15:12 Method Of Arrival: Ambulatory tl4 15:12 Acuity: MAMADOU 3 tl4 Triage Assessment: 15:15 General: Appears in no apparent distress. Behavior is calm, cooperative. Pain: tl4 Complains of pain in face and scalp. EENT: No signs and/or symptoms were reported regarding the EENT system. Neuro: Level of Consciousness is awake, alert, obeys commands, Oriented to person, place, time, situation, Moves all extremities. Full function Gait is steady, Speech is normal, Facial symmetry appears normal, Reports headache. Cardiovascular: Capillary refill < 3 seconds Patient's skin is warm and dry. Respiratory: Airway is patent Respiratory effort is even, unlabored, Respiratory pattern is regular, symmetrical. GI: No signs and/or symptoms were reported involving the gastrointestinal system. : No signs and/or symptoms were reported regarding the genitourinary system. Derm: No signs and/or symptoms reported regarding the dermatologic system. Musculoskeletal: No signs and/or symptoms reported regarding the musculoskeletal system. Historical: - Allergies: 15:14 No Known Allergies; tl4 - PMHx: 15:14 Hypertension; tl4 - Immunization history:: Adult Immunizations unknown. - Infectious Disease History:: Denies. - Social history:: Smoking status: Patient reports the use of cigarette tobacco products, smokes one-half pack cigarettes per day, Reported history of juuling and/or vaping. - Family history:: not pertinent. Screenin:11 [facility] ED Fall Risk Assessment (Adult) History of falling in the last 3 months, nj1 including since admission No falls in past 3 months (0 pts) Confusion or Disorientation No (0 pts) Intoxicated or Sedated No (0 pts) Impaired Gait No (0 pts) Mobility Assist Device Used No (0 pt) Altered Elimination No (0 pt) Score/Fall Risk Level 0 - 2 = Low Risk Oriented to surroundings, Maintained a safe environment, Hourly rounding (assess needs \\T\\ fall precautionary measures) done. Abuse screen: Denies threats or abuse. Denies injuries from another. Nutritional screening: No deficits noted. Tuberculosis screening: No symptoms or risk factors identified. Assessment: 16:07 General: Appears in no apparent distress. comfortable, Behavior is calm, cooperative, nj1 appropriate for age. Pain: Complains of pain in head Pain currently is 6 out of 10 on a pain scale. Quality of pain is described as aching. Neuro: Level of Consciousness is awake, alert, obeys commands, Oriented to person, place, time, situation, Reports headache. Cardiovascular: Patient's skin is warm and dry. Rhythm is regular. Respiratory: Airway is patent Respiratory effort is even, unlabored, Respiratory pattern is regular. 17:01 Reassessment: Patient appears in no apparent distress at this time. Patient is alert, nj1 oriented x 3, equal unlabored respirations, skin warm/dry/pink. Vital Signs: 15:12 BP 168 / 102; Pulse 96; Resp 20; Temp 97.7(TE); Pulse Ox 100% on R/A; Weight 97.52 kg; tl4 Height 5 ft. 9 in. ; Pain 6/10; 16:13 BP 150 / 98; Pulse 81; Resp 18; Pulse Ox 99% ; Pain 6/10; nj1 17:00 BP 154 / 100; Pulse 75; Resp 17; Pulse Ox 99% on R/A; nj1 15:12 Body Mass Index 31.75 (97.52 kg, 175.26 cm) tl4 15:12 Pain Scale: Adult tl4 16:13 Pain Scale: Adult nj1 ED Course: 14:54 Patient arrived in ED. mg5 14:55 Cheng Wilkerson MD is Attending Physician. zehra 15:14 Triage completed. tl4 15:16 Arm band placed on right wrist. tl4 15:28 XRAY Chest (1 view) In Process Unspecified. EDMS 15:43 Sowmya Naylor, RN is Primary Nurse. nj1 15:48 Basic Metabolic Panel Sent. bc6 15:48 CBC with Diff Sent. bc6 15:48 LFT's Sent. bc6 15:48 Magnesium Sent. bc6 15:48 NT PRO-BNP Sent. bc6 15:48 Troponin HS Sent. bc6 15:48 Initial lab(s) drawn, by tx, sent to lab. Inserted saline lock: 20 gauge in right bc6 forearm, using aseptic technique. Blood collected. 16:12 Patient has correct armband on for positive identification. Bed in low position. Call nj1 light in reach. Side rails up X 1. Adult w/ patient. Provided Education on: call light, fall precautions. 16:38 Tremayne Neff DO is Referral Physician. [facility] 16:39 Lemuel Downing MD is Referral Physician. [facility] 17:07 No provider procedures requiring assistance completed. IV discontinued, intact, nj1 bleeding controlled, Pressure dressing applied. Administered Medications: 15:45 Drug: NS 0.9% IV 500 ml IV at bolus once Route: IV; Rate: bolus; Site: right forearm; nj1 17:09 Follow up: Response: No adverse reaction nj1 16:54 Drug: Aspirin PO Chewable Tablet 81 mg PO once Route: PO; kj2 17:09 Follow up: Response: No adverse reaction nj1 16:54 Drug: Norvasc PO 10 mg PO once Route: PO; kj2 17:09 Follow up: Response: No adverse reaction nj1 16:58 Not Given (Pt dischargedd): ns 0.9% 1000 ml IV at 125 ml/hr continuous nj1 Medication: 17:08 VIS not applicable for this client. nj1 Outcome: 16:39 Discharge ordered by . zehra 17:07 Discharged to home ambulatory, nj1 17:07 Condition: stable 17:07 Discharge instructions given to patient, Instructed on discharge instructions, follow up and referral plans. medication usage, benefits of quitting smoking, Demonstrated understanding of instructions, follow-up care, medications, Prescriptions given X 1, 17:08 Patient left the ED. nj1 Signatures: Dispatcher [employer] EDCheng Velázquez MD MD cha [place], Breana bc6 Sowmya Naylor RN RN nj1 Christina Sánchez mg5 Saurabh Byrnes RN RN tl4 Dione Fuentes RN RN kj2
[2024-02-22] MEDS ORDERED: AMLODIPINE 10 MG TAB ONE (16:49)
[2024-02-22] MEDS ORDERED: ASPIRIN 81 MG CHEWABLE TABLET ONE (16:49)
[2024-02-22 17:21] VITALS: BP 154/100; TEMP 97.7; O2SAT 99
--- NOTE | 2024-02-23 14:08 | EKG ---
Test Date: 2024-02-22 Test Time: 16:14:39 Poured Pipe Maker: SHANTEL MEASUREMENT RESULTS: Intervals: Rate: 81 NC: 132 QRSD: 88 QT: 384 QTc: 446 [place]: P: 39 NC: 132 QRS: 27 T: 5 INTERPRETIVE STATEMENTS: Normal sinus rhythm Moderate voltage criteria for LVH, may be normal variant Possible Inferior infarct, age undetermined Abnormal ECG Compared to ECG 05/27/2023 11:04:36 Left ventricular hypertrophy now present Myocardial infarct finding now present Electronically Signed On 02-23-24 14:06:36 CDT by Lemuel Downing
== END 2024-02-22 17:08 | disposition home or self-care (01) ==
LOC: ER 14:51
DX: I10 Essential (primary) hypertension (principal); Z72.0 Tobacco use; Z71.6 Tobacco abuse counseling
CPT/HCPCS: 36415; 71045; 80048; 80076; 81003; 83735; 83880; 84484; 85025; 93005; 99284; J7040

== ENCOUNTER 2024-02-24 22:47 | Emergency (ER) | payer SELFPAY ==
--- OUTSIDE RECORDS SUMMARY | 2024-02-24 22:51 | XMS REPORT | Continuity of Care Document ---
Author Name Unknown Address [address] [facility] [address] [place] [address] [facility] thconnect Address [address] [facility] [place] [address] Care Team Providers Care Driver/Refuse Collector Name Role Phone Aram Nowak MD Attending Clinician Allergies, Adverse Reactions, Alerts Allergy Name Allergy Type Status Severity Reaction(s) Onset Date Inactive Date Treating Clinician Comments Source NO KNOWN ALLERGIE S Drug Class Active [facility] Social History Social Habit Start Date Stop Date Quantity Comments Source Sex Assigned At [facility] Exposure to SARS-CoV-2 (event) Not sure [facility] Smoking Status Start Date Stop Date Source Unknown if ever smoked [facility] Medications Ordered Medication Name Filled Medication Name Start Date Stop Date Current Medication? Ordering Clinician Indication Dosage Frequency Signature (SIG) Comments Components Source cloNIDine (CATAPRES) tablet 0.2 mg 02-11 19:15: 00 02-11 18:22 :00 No .2mg 0.2 mg, Oral, ONCE, 1 dose, 02/12/20 at 1415, STAT [facility] lisinopril 10 mg tablet 02-11 00:00: 00 Yes [id number] 10mg Take 1 tablet by mouth at bedtime. [facility] naproxen sodium 550 mg tablet 02-11 00:00: 00 Yes [id number] 550mg Take 1 tablet by mouth 2 (two) times daily with meals. [facility] Vital Signs Vital Name Observation Time Observation Value Comments S viral Systolic blood pressure 2020-02-12 20:30:00 130 mm[Hg] [facility] Diastolic blood pressure 2020-02-12 20:30:00 95 mm[Hg] [facility] Heart rate 2020-02-12 20:30:00 75 /min [facility] Respiratory rate 2020-02-12 20:30:00 16 /min [facility] Oxygen saturation in Arterial blood by Pulse oximetry 2020-02-12 20:30:00 97 /min [facility] Body temperature 2020-02-12 17:39:00 37 Aura [facility] Body height 2020-02-12 17:39:00 175.3 cm [facility] Body weight 2020-02-12 17:39:00 97.523 kg [facility] BMI 2020-02-12 17:39:00 31.75 kg/m2 [facility] Procedures Procedure Date / Time Performed Performing Clinician Source BASIC METABOLIC PANEL (NA, K, CL, CO2, GLUCOSE, BUN, CREATININE, CA) 2020-02-12 19:37:00 Aram Nowak [facility] TROPONIN I 2020-02-12 18:29:00 Aram Nowak [facility] CBC WITH DIFFERENTIAL 2020-02-12 18:29:00 Enid Nowak [facility] NOTICE OF PRIVACY PRACTICES 2020-02-12 17:26:27 Doctor Unassigned, [place] [facility] CONSENT/REFUSAL FOR DIAGNOSIS AND TREATMENT 2020-02-12 17:25:57 Doctor Unassigned, [place] [facility] Encounters Start Date/Time End Date/Time Encounter Type Admission Type Attending Clinicians Care Facility Care Department Encounter ID Source 2023-01-03 11:20:43 2023-01-03 11:20:43 Outpatient SFA [facility] [id number] L[address] Saul 2022-10-12 12:00:40 2022-10-12 12:00:40 Outpatient SFA S[facility] [id number] Lazaro Bella Saul 2022-10-08 10:11:37 2022-10-08 10:11:37 Outpatient SFA SFA [id number] Laz[address] [place] 2022-10-06 11:24:56 2022-10-06 11:24:[address] [facility] [id number] Lazaro Hughes 2020-02-12 12:27:36 2020-02-12 16:00:00 Emergency Aram Nowak [facility] [id number] [facility] 2020-02-12 12:27:36 2020-02-12 12:27:36 Emergency X [facility] ERT [id number] [facility] Results Test Description Test Time Test Comments Results Result Co mments Source LIPID [id number] 03:51:01* Test Item Value Reference Range Interpretation [...] SPECIMENS. FOR MOREINFORMATION, SEE CLIENT ANNOUNCEMENT AT [email or web address] RATIO LDL/HDL (test code = 2238) 1.93 RATIO <3.55 COMPREHENSIVE METABOLIC [id number] 03:51:01* Test Item Value Reference Range Interpretation Comme nts GLUCOSE (test code = 2217) 103 MG/DL 70-99 H BUN (test code = 2208) 10 MG/DL 6-20 CREATININE (test code = 2214) 1.04 MG/DL 0.80-1.40 eGFR (2020 CKD-EPI) (test code = 01931) 95 ML/MIN/1.73 >60 CALC BUN/CREAT (test code [...] code = 2206) 0.6 MG/DL See_Comment [Automated [employer]] The system which generated this result transmitted reference range: <=1.2. The reference range was not used to interpret this result as normal/abnormal. ALKALINE PHOSPHATASE (test code = 2203) 59 U/L 40-117 AST (test code = 2217) 21 U/L 9-50 ALT (test code = 2218) 16 U/L 5-50 CBC WITH [id number] 20:26:00* Test Item Value Reference Range Interpretation Comme nts WBC (test code = 6690-2) See_Comment [Automated [employer]] The system which generated this result transmitted reference range: 4.20 - 10.70 10*3/?L. The reference range was not used to interpret this result as normal/abnormal. RBC (test code = 789-8) See_Comment [Automated [employer]] The system which generated this result transmitted [...] g/dL 31.2-35 H RDW-SD (test code = 23483-6) 46.5 fL 38.5-51.6 RDW-CV (test code = 788-0) 13.8 % 12.1-15.4 PLT (test code = 777-3) See_Comment [Automated [employer]] The system which generated this result transmitted reference range: 150 - 328 10*3/?L. The reference range was not used to interpret this result as normal/abnormal. MPV (test code = 67230-7) 11.2 fL 9.8-13 IPF % (test code = 2014377119) 3.7 % 1.2-10.7 Platelet count measured by fluorescence method. NRBC/100 WBC (test code = 6665082094) See_Comment [Automated [employer]] The system which generated this result transmitted reference range: 0.0 - 10.0 /100 WBCs. The reference range was not used to interpret this result as normal/abnormal. NRBC x10^3 (test code = 8516867686) <0.01 See_Comment [Automated [employer]] The system which generated this result transmitted reference range: 10*3/?L. The reference range was not used to interpret this result as normal/abnormal. GRAN MAT (NEUT) % (test code = 770-8) 52.5 % IMM GRAN % (test code = 8563454944) 0.90 % LYMPH % (test code = 736-9) 35.5 % MONO % (test code = 5905-5) 8.6 % EOS % (test code = 713-8) 1.6 % BASO % (test code = 706-2) 0.9 % GRAN MAT x10^3(ANC) (test code = 2321714871) 3.65 10*3/uL 1.99-6.95 IMM GRAN x10^3 (test code = 6541963063) 0.06 10*3/uL 0-0.06 LYMPH x10^3 (test code = 731-0) 2.47 10*3/uL 1.09-3.23 MONO x10^3 (test code = 742-7) 0.60 10*3/uL 0.36-1.02 EOS x10^3 (test code = 711-2) 0.11 10*3/uL 0.06-0.53 BASO x10^3 (test code = 704-7) 0.06 10*3/uL 0.01-0.09 GIANT PLATELETS (test code = 5908-9) Present See_Comment A [Automated [employer]] The system which generated this result transmitted reference range: (none). The reference range was not used to interpret this result as normal/abnormal. Lab Interpretation (test code = 14015-5) Abnormal [facility] METABOLIC PANEL (NA, K, CL, CO2, GLUCOSE, BUN, CREATININE, CA)2020-02-12 20:01:00* Test Item Value Reference Range Interpretation Comme nts NA (test code = 8256038241) 137 mmol/L 135-145 K (test code = 2155311704) 4.0 mmol/L 3.5-5 CL (test code = 1664844320) 105 mmol/L 98-108 CO2 TOTAL (test code = 8663438199) 26 mmol/L 23-31 AGAP (test code = 1055515641) 2-16 BUN (test code = 1394009656) 14 mg/dL 7-23 GLUCOSE (test code = 1457397091) 106 mg/dL 70-110 CREATININE (test code = 9236969703) 0.88 mg/dL 0.6-1.25 CALCIUM (test code = 7659860081) 9.3 mg/dL 8.6-10.6 eGFR Calculation (Non-) (test code = 1660068352) mL/min/1.73m2 eGFR Calculation () (test code = 6750593102) mL/min/1.73m2 SUMIT (test code = SUMIT) Association [...] or urine or abnormalities in imaging tests). [id number] 19:30:00* Test Item Value Reference Range Interpretation Comme nts TROPONIN I (test code = 9388783459) 0.018 ng/mL See_Comment [Automated message] The system [...] biotin. ? Lab Interpretation (test code = 85782-2) Normal [facility]"
[2024-02-25] MEDS ORDERED: TETRACAINE HCL 0.5% 4ML OPTH ONE (00:03)
[2024-02-25] MEDS ORDERED: FLUORESCEIN SODIUM 1 MG/WRAP ONE (00:04)
--- NOTE | 2024-02-25 01:09 | EDPHYS ---
Physician Documentation [facility] Name: Mika Alvarado Age: 38 yrs Sex: Male : 1985 Arrival Date: 02/24/2024 Time: 22:47 Bed 15 Private MD: ED Physician Cheng Wilkerson HPI: 02/24 01:01 This 38 yrs old Black Male presents to ER via Ambulatory with complaints of Eye Problem zehra - Work related. 01:01 The patient is experiencing foreign body sensation, pain, redness, tearing, The patient zehra sustained an abrasion, to the left eye. Onset: The symptoms/episode began/occurred yesterday. Duration: the symptoms are continuous. Aggravated by blinking, closing eye, opening eye, pressure, Alleviated by blinking. Associated signs and symptoms: Pertinent positives: None. Patient does not utilize any form of vision correction. Severity of symptoms: At their worst the symptoms were moderate in the emergency department the symptoms are unchanged. The patient has not experienced similar symptoms in the past. Historical: - Allergies: 02/23 23:20 No Known Allergies; cm10 - Home Meds: 23:20 amlodipine 5 mg tab 1 tab once daily [Active]; cm10 - PMHx: 23:20 Hypertension; cm10 - PSHx: 23:20 None; cm10 - Immunization history:: Adult Immunizations up to date. - Infectious Disease History:: Denies. - Social history:: Smoking status: Patient reports the use of cigarette tobacco products, smokes one-half pack cigarettes per day. - Family history:: not pertinent. ROS: 02/24 01:01 Constitutional: Negative for fever, chills, and weight loss, ENT: Negative for injury, zehra pain, and discharge, Neck: Negative for injury, pain, and swelling, Cardiovascular: Negative for chest pain, palpitations, and edema, Respiratory: Negative for shortness of breath, cough, wheezing, and pleuritic chest pain, Abdomen/GI: Negative for abdominal pain, nausea, vomiting, diarrhea, and constipation, Back: Negative for injury and pain, : Negative for injury, bleeding, discharge, and swelling, MS/Extremity: Negative for injury and deformity, Skin: Negative for injury, rash, and discoloration, Neuro: Negative for headache, weakness, numbness, tingling, and seizure, Psych: Negative for depression, anxiety, suicide ideation, homicidal ideation, and hallucinations, Allergy/Immunology: Negative for hives, rash, and allergies, Endocrine: Negative for neck swelling, polydipsia, polyuria, polyphagia, and marked weight changes, Hematologic/Lymphatic: Negative for swollen nodes, abnormal bleeding, and unusual bruising, Eyes: Positive for foreign body sensation, pain, redness, of the iris of left eye, Exam: 01:01 Constitutional: This is a well developed, well nourished patient who is awake, alert, zehra and in no acute distress. Head/Face: Normocephalic, atraumatic. ENT: Nares patent. No nasal discharge, no septal abnormalities noted. Tympanic membranes are normal and external auditory canals are clear. Oropharynx with no redness, swelling, or masses, exudates, or evidence of obstruction, uvula midline. Mucous membranes moist. Neck: Trachea midline, no thyromegaly or masses palpated, and no cervical lymphadenopathy. Supple, full range of motion without nuchal rigidity, or vertebral point tenderness. No Meningismus. Chest/axilla: Normal chest wall appearance and motion. Nontender with no deformity. No lesions are appreciated. Cardiovascular: Regular rate and rhythm with a normal S1 and S2. No gallops, murmurs, or rubs. Normal PMI, no JVD. No pulse deficits. Respiratory: Lungs have equal breath sounds bilaterally, clear to auscultation and percussion. No rales, rhonchi or wheezes noted. No increased work of breathing, no retractions or nasal flaring. Abdomen/GI: Soft, non-tender, with normal bowel sounds. No distension or tympany. No guarding or rebound. No evidence of tenderness throughout. Back: No spinal tenderness. No costovertebral tenderness. Full range of motion. Male : Normal genitalia with no discharge or lesions. Skin: Warm, dry with normal turgor. Normal color with no rashes, no lesions, and no evidence of cellulitis. MS/ Extremity: Pulses equal, no cyanosis. Neurovascular intact. Full, normal range of motion. Neuro: Awake and alert, GCS 15, oriented to person, place, time, and situation. Cranial nerves II-XII grossly intact. Motor strength 5/5 in all extremities. Sensory grossly intact. Cerebellar exam normal. Normal gait. Psych: Awake, alert, with orientation to person, place and time. Behavior, mood, and affect are within normal limits. 01:01 Eyes: Periorbital structures: appear normal, no acute changes, Pupils: no acute changes, equal, round, and reactive to light and accomodation, Extraocular movements: intact throughout, Conjunctiva: injected, Corneas: abrasion, that is small, at 6 o'clock, foreign body, is not appreciated, a fluorescein strip employed to appreciate the findings, Sclera: injected, Anterior chamber: normal, no acute changes, Lids and lashes: appear normal, on the left, no acute changes, Vital Signs: 02/23 23:18 BP 142 / 96; Pulse 93; Resp 18; Temp 98.5; Pulse Ox 95% ; Weight 99.79 kg; Height 5 ft. cm10 9 in. ; Pain 8/10; 02/24 01:00 BP 141 / 91; Pulse 92; Resp 17 S; Pulse Ox 96% on R/A; jw7 02:18 BP 140 / 85; Pulse 90; Resp 17 S; Temp 98.6(O); Pulse Ox 97% on R/A; jw7 02/23 23:18 Body Mass Index 32.49 (99.79 kg, 175.26 cm) cm10 02/23 23:18 Pain Scale: Adult cm10 MDM: 02/23 23:33 Patient medically screened. [facility] 02/24 01:06 Differential diagnosis: Corneal abrasion of Corneal ulcer of left eye. Foreign body in zehra Acute iritis of left eye. Acute glaucoma in left eye. Ultraviolet keratitis in left eye. Data reviewed: vital signs, nurses notes. Consideration of Admission/Observation Escalation of care including admission/observation considered. I considered the following discharge prescriptions or medication management in the emergency department Medications were administered in the Emergency Department. See MAR. Test considered but Not performed: Labs: no labs. Care significantly affected by the following chronic conditions: Hypertension, Obesity. 02/23 23:33 Order name: Eye Tray; Complete Time: 01:09 [facility] 02/23 23:33 Order name: Fluoresene Opth strip; Complete Time: 01:09 [facility] 02/24 01:01 Order name: Misc. Order: patch; Complete Time: 02:11 [facility] Administered Medications: 01:09 Drug: Tetracaine Ophthalmic Drops 0.5 % 1 drops Ophthalmic once Route: Ophthalmic; bm8 Site: left eye; 02:12 Follow up: Response: No adverse reaction; Marked relief of symptoms; Pain is decreased jw7 01:55 Drug: Cyclopentolate Ophthalmic Drops (1 %) 1 drops Ophthalmic once; left eye Route: jw7 Ophthalmic; Site: left eye; 02:12 Follow up: Response: No adverse reaction; Medication administered at discharge. 01:55 Drug: Tobrex Ophthalmic Ointment 0.3 % 1 application Ophthalmic in left eye once Route: jw7 Ophthalmic; Site: left eye; 02:12 Follow up: Response: No adverse reaction; Medication administered at discharge. 01:55 Drug: [place] PO 10 mg-325 mg 1 tabs PO once Route: PO; jw7 02:11 Follow up: Response: No adverse reaction; Medication administered at discharge. jw7 Disposition Summary: 02/25/24 01:08 Discharge Ordered Notes: Location: Home zehra Problem: new zehra Symptoms: have improved zehra Condition: Stable zehra Diagnosis - Injury of conjunctiva and corneal abrasion without foreign body, left eye zehra Followup: zehra - With: Private Physician - When: 2 - 3 days - Reason: Recheck today's complaints, Continuance of care, Re-evaluation by your physician Followup: zehra - With: Jason Jones MD - When: Tomorrow - Reason: Recheck today's complaints, Re-evaluation by your physician Discharge Instructions: - Discharge Summary Sheet zehra - Corneal Abrasion zehra - Corneal Abrasion, [id number] [facility] Forms: - Medication Reconciliation Form zehra - Antibiotic Education zehra - Prescription Opioid Use zehra - Patient Portal Instructions [facility] - Leadership Thank You Letter [facility] - Work release form jw7 Prescriptions: - Tobrex 0.3 % Ophthalmic ointment - instill 1 inch ribbon OPHTHALMIC route every 4 hours for 7 days; 3.5 zehra application; Refills: 0, Product Selection Permitted - acetaminophen-codeine 300-30 mg Oral tablet - take 2 tablet ORAL route every 6 hours as needed for pain; 18 tablet; Refills: zehra 0, Product Selection Permitted Signatures: Cheng Wilkerson MD MD cha Waits, Jodi RN RN jw7 Jessica Palacio RN RN cm10 Taiwo Cagle RN RN bm8
--- NOTE | 2024-02-25 01:09 | ER ---
Nurse's Notes [facility] Name: Mika Alvarado Age: 38 yrs Sex: Male : 1985 Arrival Date: 02/24/2024 Time: 22:47 Bed 15 Private MD: Diagnosis: Injury of conjunctiva and corneal abrasion without foreign body, left eye Presentation: 02/23 23:18 Chief complaint: Patient states: LEFT EYE PAIN. PT STATES THAT HE WAS AT WORK TODAY AT [employer] AND GOT SOMETHING IN HIS EYE. PT HAS TRIED FLUSHING HIS EYE WITH NO RELIEF. Coronavirus screen: Client denies travel out of the [place] in the last 14 days. At this time, the client does not indicate any symptoms associated with coronavirus-19. Ebola Screen: Patient denies travel to an Ebola-affected area in the 21 days before illness onset. No symptoms or risks identified at this time. Initial Sepsis Screen: Does the patient meet any 2 criteria? No. Patient's initial sepsis screen is negative. Does the patient have a suspected source of infection? No. Patient's initial sepsis screen is negative. Risk Assessment: Do you want to hurt yourself or someone else? Patient reports no desire to harm self or others. Onset of symptoms was February 24, 2024. 23:18 Method Of Arrival: Ambulatory cm10 23:18 Acuity: MAMADOU 4 cm10 Triage Assessment: 23:20 General: Appears in no apparent distress. comfortable, Behavior is calm, cooperative. cm10 Pain: Complains of pain in left eye Pain does not radiate. Pain currently is 8 out of 10 on a pain scale. Neuro: No deficits noted. Level of Consciousness is awake, alert, obeys commands, Oriented to person, place, time, situation, Appropriate for age. Respiratory: No deficits noted. Airway is patent Respiratory effort is even, unlabored, Respiratory pattern is regular, symmetrical. Historical: - Allergies: 23:20 No Known Allergies; cm10 - Home Meds: 23:20 amlodipine 5 mg tab 1 tab once daily [Active]; cm10 - PMHx: 23:20 Hypertension; cm10 - PSHx: 23:20 None; cm10 - Immunization history:: Adult Immunizations up to date. - Infectious Disease History:: Denies. - Social history:: Smoking status: Patient reports the use of cigarette tobacco products, smokes one-half pack cigarettes per day. - Family history:: not pertinent. Screenin/29 00:10 [facility] ED Fall Risk Assessment (Adult) History of falling in the last 3 months, jw7 including since admission No falls in past 3 months (0 pts) Confusion or Disorientation No (0 pts) Intoxicated or Sedated No (0 pts) Impaired Gait No (0 pts) Mobility Assist Device Used No (0 pt) Altered Elimination No (0 pt) Score/Fall Risk Level 0 - 2 = Low Risk Oriented to surroundings, Maintained a safe environment, Educated pt \T\ family on fall prevention, incl call for assistance when getting out of bed. Abuse screen: Denies threats or abuse. Denies injuries from another. Nutritional screening: No deficits noted. Tuberculosis screening: No symptoms or risk factors identified. Assessment: 00:10 General: Appears in no apparent distress. uncomfortable, Behavior is calm, cooperative, jw7 appropriate for age. 00:10 Pain: Complains of pain in left eye Pain does not radiate. Pain currently is 8 out of jw7 10 on a pain scale. Quality of pain is described as burning, stinging, Pain began suddenly, Is continuous. Neuro: Level of Consciousness is awake, alert, obeys commands, Oriented to person, place, time, situation, Appropriate for age. Cardiovascular: Heart tones S1 S2 present Capillary refill < 3 seconds Clubbing of nail beds is absent JVD is absent Patient's skin is warm and dry. Respiratory: Airway is patent Trachea midline Respiratory effort is even, unlabored, Respiratory pattern is regular, symmetrical. GI: Abdomen is round non-distended, Bowel sounds present X 4 quads. Abd is soft and non tender X 4 quads. : No deficits noted. No signs and/or symptoms were reported regarding the genitourinary system. EENT: Reports pain in left eye. Derm: Skin is intact, is healthy with good turgor, Skin is dry, Skin is normal, Skin temperature is warm. Musculoskeletal: Circulation, motion, and sensation intact. Range of motion: intact in all extremities. 01:00 Reassessment: Patient appears in no apparent distress at this time. No changes from jw7 previously documented assessment. Patient and/or family updated on plan of care and expected duration. Pain level reassessed. Patient is alert, oriented x 3, equal unlabored respirations, skin warm/dry/pink. 02:00 Reassessment: Patient appears in no apparent distress at this time. No changes from jw7 previously documented assessment. Patient and/or family updated on plan of care and expected duration. Pain level reassessed. Patient is alert, oriented x 3, equal unlabored respirations, skin warm/dry/pink. Vital Signs: 02/23 23:18 BP 142 / 96; Pulse 93; Resp 18; Temp 98.5; Pulse Ox 95% ; Weight 99.79 kg; Height 5 ft. cm10 9 in. ; Pain 8/10; 02/24 01:00 BP 141 / 91; Pulse 92; Resp 17 S; Pulse Ox 96% on R/A; jw7 02:18 BP 140 / 85; Pulse 90; Resp 17 S; Temp 98.6(O); Pulse Ox 97% on R/A; jw7 02/23 23:18 Body Mass Index 32.49 (99.79 kg, 175.26 cm) cm10 02/23 23:18 Pain Scale: Adult cm10 ED Course: 02/23 22:50 Patient arrived in ED. ra3 23:20 Triage completed. cm10 23:20 Arm band placed on Patient placed in waiting room. cm10 23:32 Cheng Wilkerson MD is Attending Physician. [facility] 02/24 00:06 Zenobia Irby, RN is Primary Nurse. jw7 00:10 Patient has correct armband on for positive identification. Bed in low position. Call jw7 light in reach. Provided Education on: Use of Call Light. 01:00 Assist provider with eye exam of left eye. using fluorescein stain, Performed by Cheng Wilkerson MD Dressed with eye patch Patient tolerated well. 01:08 Jason Jones MD is Referral Physician. [facility] 02:17 Patient did not have IV access during this emergency room visit. jw7 Administered Medications: 01:09 Drug: Tetracaine Ophthalmic Drops 0.5 % 1 drops Ophthalmic once Route: Ophthalmic; bm8 Site: left eye; 02:12 Follow up: Response: No adverse reaction; Marked relief of symptoms; Pain is decreased jw7 01:55 Drug: Cyclopentolate Ophthalmic Drops (1 %) 1 drops Ophthalmic once; left eye Route: jw7 Ophthalmic; Site: left eye; 02:12 Follow up: Response: No adverse reaction; Medication administered at discharge. jw7 01:55 Drug: Tobrex Ophthalmic Ointment 0.3 % 1 application Ophthalmic in left eye once Route: jw7 Ophthalmic; Site: left eye; 02:12 Follow up: Response: No adverse reaction; Medication administered at discharge. jw7 01:55 Drug: [place] PO 10 mg-325 mg 1 tabs PO once Route: PO; jw7 02:11 Follow up: Response: No adverse reaction; Medication administered at discharge. jw7 Medication: 02:17 VIS not applicable for this client. jw7 Outcome: 01:08 Discharge ordered by . zehra 02:17 Discharged to home ambulatory, with family, jw7 02:17 Condition: stable 02:17 Discharge instructions given to patient, Instructed on discharge instructions, follow up and referral plans. medication usage, Demonstrated understanding of instructions, follow-up care, medications, Prescriptions given X 2, 02:19 Patient left the ED. jw7 Signatures: Cheng Wilkerson MD MD cha Waits, Jodi RN RN jw7 Jessica Palacio RN RN cm10 Chana Valenzuela 3 Taiwo Cagle, RN RN bm8 Corrections: (The following items were deleted from the chart) 02/23 23:20 23:20 Arm band placed on Patient placed in an exam room, on a stretcher, cm10 cm10
[2024-02-25] MEDS ORDERED: HYDROCODONE/APAP 10/325 TAB ONE (01:27)
[2024-02-25] MEDS ORDERED: TOBRAMYCIN SULF 0.3% OPTH OINT ONE (01:27)
[2024-02-25] MEDS ORDERED: CYCLOPENTOLATE 2% OPTH 2 ML ONE (01:27)
[2024-02-25 02:37] VITALS: BP 140/85; TEMP 98.6; O2SAT 97
== END 2024-02-25 02:19 | disposition home or self-care (01) ==
LOC: ER 22:47
DX: S05.02XA Injury of conjunctiva and corneal abrasion without foreign body, left eye, initial encounter (principal); F17.210 Nicotine dependence, cigarettes, uncomplicated
CPT/HCPCS: 99284

== ENCOUNTER 2024-06-02 02:20 | Emergency (ER) | payer SELFPAY ==
--- OUTSIDE RECORDS SUMMARY | 2024-06-02 02:22 | XMS REPORT | Continuity of Care Document ---
Author Name Unknown Address [address] [facility] [address] [id number] [facility] Address [address] [facility] [address] [place] [address] Care Team Providers Care Fundraiser Name Role Phone Aram Nowak MD Attending Clinician [phone] Allergies, Adverse Reactions, Alerts Allergy Name Allergy Type Status Severity Reaction(s) Onset Date Inactive Date Treating Clinician Comments Source NO KNOWN ALLERGIE S Drug Class Active [facility] Social History Social Habit Start Date Stop Date Quantity Comments Source Sex Assigned At [facility] Exposure to SARS-CoV-2 (event) Not sure [facility] Smoking Status Start Date Stop Date Source Unknown if ever smoked [facility] Medications Ordered Medication Name Filled Medication Name Start Date Stop Date Current Medication? Ordering Clinician Indication Dosage Frequency Signature (SIG) Comments Components Source cloNIDine (CATAPRES) tablet 0.2 mg 02-11 19:15: 00 02-11 18:22 :00 No .2mg 0.2 mg, Oral, ONCE, 1 dose, [facility] 02/12/20 at 1415, STAT [facility] lisinopril 10 mg tablet 02-11 00:00: 00 Yes [id number] 10mg Take 1 tablet by mouth at bedtime. [facility] naproxen sodium 550 mg tablet 02-11 00:00: 00 Yes [id number] 550mg Take 1 tablet by mouth 2 (two) times daily with meals. [facility] Vital Signs Vital Name Observation Time Observation Value Comments Remedios stratton Systolic blood pressure 2020-02-12 20:30:00 130 mm[Hg] [facility] Diastolic blood pressure 2020-02-12 20:30:00 95 mm[Hg] [facility] acute hospital Heart rate 2020-02-12 20:30:00 75 /min [facility] Respiratory rate 2020-02-12 20:30:00 16 /min [facility] Oxygen saturation in Arterial blood by Pulse oximetry 2020-02-12 20:30:00 97 /min [facility] acute hospital Body temperature 2020-02-12 17:39:00 37 Aura [facility] Body height 2020-02-12 17:39:00 175.3 cm [facility] Body weight 2020-02-12 17:39:00 97.523 kg [facility] BMI 2020-02-12 17:39:00 31.75 kg/m2 [facility] Procedures Procedure Date / Time Performed Performing Clinician Source BASIC METABOLIC PANEL (NA, K, CL, CO2, GLUCOSE, BUN, CREATININE, CA) 2020-02-12 19:37:00 Aram Nowak [facility] TROPONIN I 2020-02-12 18:29:00 Aram Nowak [facility] CBC WITH DIFFERENTIAL 2020-02-12 18:29:00 Enid Nowak [facility] NOTICE OF PRIVACY PRACTICES 2020-02-12 17:26:27 Doctor Unassigned, [place] [facility] CONSENT/REFUSAL FOR DIAGNOSIS AND TREATMENT 2020-02-12 17:25:57 Doctor Unassigned, [place] [facility] Encounters Start Date/Time End Date/Time Encounter Type Admission Type Attending Clinicians Care Facility Care Department Encounter ID Source 2023-01-03 11:20:43 2023-01-03 11:20:43 Outpatient S[facility] SFA [id number] Lazaro Bella Saul 2022-10-12 12:00:40 2022-10-12 12:00:40 Outpatient SFA SFA [id number] Lazaro Bella Saul 2022-10-08 10:11:37 2022-10-08 10:11:37 Outpatient SFA SFA [id number] Lazaro Bella Saul 2022-10-06 11:24:56 2022-10-06 11:24:56 Outpatient SFA SFA [id number] Lazaro Hughes 2020-02-12 12:27:36 2020-02-12 16:00:00 Emergency Aram Nowak [facility] [id number] [facility] 2020-02-12 12:27:36 2020-02-12 12:27:36 Emergency X [facility] ERT [id number] [facility] Results Test Description Test Time Test Comments Results Result Co mments Source LIPID [id number] 03:51:01* Test Item Value Reference Range Interpretation [...] SPECIMENS. FOR MOREINFORMATION, SEE CLIENT ANNOUNCEMENT AT [email or web address] RISK RATIO LDL/HDL (test code = 2238) 1.93 RATIO <3.55 COMPREHENSIVE METABOLIC [id number] 03:51:01* Test Item Value Reference Range Interpretation Comme nts GLUCOSE (test code = 2217) 103 MG/DL 70-99 H BUN (test code = 2208) 10 MG/DL 6-20 CREATININE (test code = 2214) 1.04 MG/DL 0.80-1.40 eGFR (2020 CKD-EPI) (test code = 66864) 95 ML/MIN/1.73 >60 CALC BUN/CREAT (test code = 2235) 10 RATIO 6-28 SODIUM (test code = 2231) 145 MEQ/L 133-146 POTASSIUM (test code = 2228) 4.1 MEQ/L 3.5-5.4 CHLORIDE (test code = 2215) 101 MEQ/L 95-107 CARBON DIOXIDE (test code = 2206) 28 MEQ/L 19-31 CALCIUM (test code = 2208) 10.0 MG/DL 8.5-10.5 PROTEIN, TOTAL (test code = 2228) 7.2 G/DL 6.1-8.3 ALBUMIN (test code = 2200) 4.7 G/DL 3.5-5.2 CALC GLOBULIN (test code = 0) 2.5 G/DL 1.9-3.7 CALC A/G RATIO (test code = 2233) 1.9 RATIO 1.0-2.6 BILIRUBIN, TOTAL (test code = 2206) 0.6 MG/DL See_Comment [Automated [employer] ssage] The system which generated this result transmitted reference range: <=1.2. The reference range was not used to interpret this result as normal/abnormal. ALKALINE PHOSPHATASE (test code = 2203) 59 U/L 40-117 AST (test code = 2217) 21 U/L 9-50 ALT (test code = 2218) 16 U/L 5-50 CBC WITH [id number] 20:26:00* Test Item Value Reference Range Interpretation Comme nts WBC (test code = 6690-2) See_Comment [Automated [employer] ge] The system which generated this result transmitted reference range: 4.20 - 10.70 10*3/?L. The reference range was not used to interpret this result as normal/abnormal. RBC (test code = 789-8) See_Comment [Automated [employer] ge] The system which generated this result [...] g/dL 31.2-35 H RDW-SD (test code = 58711-7) 46.5 fL 38.5-51.6 RDW-CV (test code = 788-0) 13.8 % 12.1-15.4 PLT (test code = 777-3) See_Comment [Automated [employer]] The system which generated this result transmitted reference range: 150 - 328 10*3/?L. The reference range was not used to interpret this result as normal/abnormal. MPV (test code = 61356-6) 11.2 fL 9.8-13 IPF % (test code = 7961610837) 3.7 % 1.2-10.7 Platelet count measured by fluorescence method. NRBC/100 WBC (test code = 1112718748) See_Comment [Automated [employer] ssage] The system which generated this result transmitted reference range: 0.0 - 10.0 /100 WBCs. The reference range was not used to interpret this result as normal/abnormal. NRBC x10^3 (test code = 8971698215) <0.01 See_Comment [Automated [employer] ge] The system which generated this result transmitted reference range: 10*3/?L. The reference range was not used to interpret this result as normal/abnormal. GRAN MAT (NEUT) % (test code = 770-8) 52.5 % IMM GRAN % (test code = 8651570340) 0.90 % LYMPH % (test code = 736-9) 35.5 % MONO % (test code = 5905-5) 8.6 % EOS % (test code = 713-8) 1.6 % BASO % (test code = 706-2) 0.9 % GRAN MAT x10^3(ANC) (test code = 2684120894) 3.65 10*3/uL 1.99-6.95 IMM GRAN x10^3 (test code = 3754310074) 0.06 10*3/uL 0-0.06 LYMPH x10^3 (test code = 731-0) 2.47 10*3/uL 1.09-3.23 MONO x10^3 (test code = 742-7) 0.60 10*3/uL 0.36-1.02 EOS x10^3 (test code = 711-2) 0.11 10*3/uL 0.06-0.53 BASO x10^3 (test code = 704-7) 0.06 10*3/uL 0.01-0.09 GIANT PLATELETS (test code = 5908-9) Present See_Comment A [Automated [employer]] The system which generated this result transmitted reference range: (none). The reference range was not used to interpret this result as normal/abnormal. Lab Interpretation (test code = 17965-2) Abnormal [facility] METABOLIC PANEL (NA, K, CL, CO2, GLUCOSE, BUN, CREATININE, CA)2020-02-12 20:01:00* Test Item Value Reference Range Interpretation Comme nts NA (test code = 9543294154) 137 mmol/L 135-145 K (test code = 8927557728) 4.0 mmol/L 3.5-5 CL (test code = 0097289598) 105 mmol/L 98-108 CO2 TOTAL (test code = 8193701672) 26 mmol/L 23-31 AGAP (test code = 9039403273) 2-16 BUN (test code = 8296801611) 14 mg/dL 7-23 GLUCOSE (test code = 1141542334) 106 mg/dL 70-110 CREATININE (test code = 6608064063) 0.88 mg/dL 0.6-1.25 CALCIUM (test code = 5465436625) 9.3 mg/dL 8.6-10.6 eGFR Calculation (Non-) (test code = 7323487516) mL/min/1.73m2 eGFR Calculation () (test code = 2242548309) mL/min/1.73m2 SUMIT (test code = SUMIT) Association [...] or urine or abnormalities in imaging tests). [id number] 19:30:00* Test Item Value Reference Range Interpretation Comme nts TROPONIN I (test code = 4331752251) 0.018 ng/mL See_Comment [Automated message] The system [...] biotin. ? Lab Interpretation (test code = 99134-3) Normal [facility]"
[2024-06-02] MEDS ORDERED: methocarbamoL 750 MG TAB ONE (03:08)
[2024-06-02] MEDS ORDERED: NA CHLORIDE 0.9% 1,000 ML ONE (03:08)
[2024-06-02] MEDS ORDERED: TRAMADOL HCL 50 MG TAB ONE (03:08)
[2024-06-02] MEDS ORDERED: KETOROLAC 30 MG/ML INJ ONE (03:08)
[2024-06-02 03:39] LABS: Absolute Basophils 0.1 K/uL (0-0.5); Absolute Eosinophils 0.2 K/uL (0-0.5); Absolute Monocytes 0.6 K/uL (0.1-1.3); Absolute Neutrophil 3.5 K/uL (1.8-8.0); Basophils % 1.3 % (0-1.3); Eosinophils % 2.2 % (0-4.4); Hematocrit 42.7 % (39.6-49.0); Hemoglobin 14.7 g/dL (13.6-17.9); Lymphocytes % 40.7 % (15.3-44.8); MCH 32.8 pg (27.0-35.0); MCHC 34.3 g/dL (32.0-36.0); MCV 95.6 fL (80-100); Monocytes % 8.5 % (3.3-12.3); Neutrophils % 47.3 % (41.7-73.7); Nucleated Red Blood Cells % 0.2 % (0-0); Platelets 317 thou/uL (152-406); RBC Red Blood Cell Count 4.47 M/uL (4.33-5.43); Red Cell Distribution Width 14.5 % (12.1-15.2)
[2024-06-02 03:40] LABS: Sqamous Epithelial None Seen /HPF (None Seen); Urine Bacteria None Seen /HPF (<20); Urine Bilirubin NEGATIVE (Negative); Urine Blood 2+ (Negative); Urine Clarity Clear (Clear); Urine Color Yellow (Yellow); Urine Culture Reflex Order NOT NEEDED; Urine Glucose NEGATIVE (Negative); Urine Ketones NEGATIVE (Negative); Urine Microscopic Reflex YN ORDER UMIC; Urine Mucus Slight /HPF (None Seen); Urine Nitrite NEGATIVE (Negative); Urine Protein TRACE (Negative); Urine Urobilinogen Normal (Normal); Urine WBC <5 /HPF (<5); Urine pH 5.5 (5.0-7.0)
[2024-06-02 03:44] LABS: Albumin 3.8 g/dL (3.4-5.0); Albumin/Globulin Ratio 1.1 (1.1-1.8); Anion Gap 9.7 mEq/L (5.0-15.0); Bilirubin Total 0.4 mg/dL (0.2-1.0); Globulin 3.5 g/dL (2.3-3.5); Potassium 3.7 mEq/L (3.5-5.1); Protein, Total 7.3 g/dL (6.4-8.2)
--- NOTE | 2024-06-02 05:48 | RAD REPORT ---
CLINICAL HISTORY: back pain as well ;Abd pain COMPARISON: 01/07/2022. TECHNIQUE: CT ABDOMEN PELVIS WITH IV CONTRAST on 06/02/2024 2:57 AM CDT This exam was performed according to our departmental dose-optimization program, which includes autom ated exposure control, adjustment of the mA and/or kV according to patient size and/or use of iterative reconstruction technique. FINDINGS: Lower lungs are clear. Abdomen: The liver is normal in appearance. There is no biliary dilatation. Gallbladder is normal in appearance. The pancreas and spleen are normal in appearance. The adrenal glands and kidneys are unremarkable. Abdominal aorta is normal in course and caliber without aneurysm. There is no free air. There is no r etroperitoneal adenopathy. Pelvis: There is no bowel obstruction. Urinary bladder is unremarkable. There is no free fluid. Appen mani is not clearly seen. Skeleton: There are no acute osseous findings. No suspicious bony lesions. IMPRESSION: No definite acute process. Electronically signed by: Willam Garcia MD 06/02/2024 05:42 AM CDT Due to temporary technical issues with the PACS/[employer] reporting system, reports are being brittany d by the in-house radiologist without review as a courtesy to ensure prompt reporting the interpreting radiologist is fully responsible for the content of the report. Transcribed Date/Time: 06/02/2024 5:48 AM
--- NOTE | 2024-06-02 05:54 | EDPHYS ---
Physician Documentation [facility] Name: Mika Alvarado Age: 38 yrs Sex: Male : 1985 Arrival Date: 06/02/2024 Time: 02:20 Bed 6 Private MD: ED Physician Checo Summers HPI: 06/02 02:30 This 38 yrs old Black Male presents to ER via Unassigned with complaints of Low Back sp4 Pain, Abdominal Pain. 05:57 Mr. Brennan presents with mid back pain bilaterally , causing pain discomfort for the sp4 past several days , pain is radiating to the upper abdomen. Historical: - Allergies: 02:22 No Known Allergies; ha1 - Home Meds: 02:22 amlodipine 5 mg tab 1 tab once daily [Active]; amlodipine oral [Active]; losartan oral ha1 [Active]; - PMHx: 02:22 Hypertension; ha1 - Immunization history:: Adult Immunizations up to date. - Infectious Disease History:: Denies. - Social history:: Smoking status: Patient reports the use of cigarette tobacco products, smokes one-half pack cigarettes per day. - Family history:: not pertinent. ROS: 05:57 Constitutional: Negative for fever, chills, and weight loss, positive mid back pain and sp4 upper abdominal pain 05:57 All other systems are negative, Exam: 05:57 Constitutional: This is a well developed, well nourished patient who is awake, alert, sp4 and in no acute distress. Head/Face: Normocephalic, atraumatic. Eyes: Pupils equal round and reactive to light, extra-ocular motions intact. Lids and lashes normal. Conjunctiva and sclera are not injected. Cornea within normal limits. Periorbital areas with no swelling, redness, or edema. ENT: Nares patent. No nasal discharge, no septal abnormalities noted. Tympanic membranes are normal and external auditory canals are clear. Oropharynx with no redness, swelling, or masses, exudates, or evidence of obstruction, uvula midline. Mucous membranes moist. Neck: Trachea midline, no thyromegaly or masses palpated, and no cervical lymphadenopathy. Supple, full range of motion without nuchal rigidity, or vertebral point tenderness. Chest/axilla: Normal chest wall appearance and motion. Nontender with no deformity. No lesions are appreciated. Cardiovascular: Regular rate and rhythm with a normal S1 and S2. No gallops, murmurs, or rubs. Normal PMI, no JVD. No pulse deficits. Respiratory: Lungs have equal breath sounds bilaterally, clear to auscultation and percussion. No rales, rhonchi or wheezes noted. No increased work of breathing, no retractions or nasal flaring. Abdomen/GI: Soft, with normal bowel sounds. No distension or tympany. No guarding or rebound. No evidence of tenderness throughout. Back: No spinal tenderness. No costovertebral tenderness. Skin: Warm, dry with normal turgor. Normal color with no rashes, no lesions, and no evidence of cellulitis. MS/ Extremity: Pulses equal, no cyanosis. Neurovascular intact. Full, normal range of motion. Neuro: Awake and alert, GCS 15, oriented to person, place, time, and situation. Cranial nerves II-XII grossly intact. Motor strength 5/5 in all extremities. Sensory grossly intact. Psych: Awake, alert, with orientation to person, place and time. Behavior, mood, and affect are within normal limits Vital Signs: 02:22 BP 156 / 113; Pulse 83; Resp 17 S; Temp 98.4(O); Pulse Ox 98% on R/A; Weight 99.79 kg; ha1 04:13 BP 160 / 117; Pulse 69; Resp 18 S; Pulse Ox 100% on R/A; Pain 2/10; br2 04:54 BP 161 / 113; Pulse 63; Resp 18 S; Pulse Ox 97% on R/A; br2 05:55 BP 164 / 120; Pulse 61; Resp 18 S; Pulse Ox 100% on R/A; br2 04:13 Pain Scale: Adult br2 Elizabeth Coma Score: 05:57 Eye Response: spontaneous(4). Motor Response: obeys commands(6). Verbal Response: sp4 oriented(5). Total: 15. MDM: 02:35 Patient medically screened. sp4 05:46 ED course: CLINICAL HISTORY: back pain as well ;Abd pain COMPARISON: 01/07/2022. sp4 TECHNIQUE: CTABDOMEN PELVIS WITH IV CONTRAST on 06/02/2024 2:57 AM CDT This exam was performed according to our departmental dose-optimization program, which includes automated exposure control, adjustment of the mA and/or kV according to patient size and/or use of iterative reconstruction technique. FINDINGS: Lower lungs are clear. Abdomen: The liver is normal in appearance. There is no biliary dilatation. Gallbladder is normal in appearance. The pancreas and spleen are normal in appearance. The adrenal glands and kidneys are unremarkable. Abdominal aorta is normal in course and caliber without aneurysm. There is no free air. There is no retroperitoneal adenopathy. Pelvis: There is no bowel obstruction. Urinary bladder is unremarkable. There is no free fluid. Appendix is not clearly seen. Skeleton: There are no acute osseous findings. No suspicious bony lesions. IMPRESSION: No definite acute process. Electronically signed. 06:01 Differential diagnosis: arthritis, strain, fracture, sciatica, contusion, Herniated sp4 disc UTI. Data reviewed: vital signs, nurses notes, old medical records, lab test result(s), radiologic studies, CT scan. Consideration of Admission/Observation Escalation of care including admission/observation considered. ED course: Is likely musculoskeletal in origin. Patient stable for discharge home. 06/02 02:57 Order name: CBC with Diff; Complete Time: 05:46 sp4 06/02 02:57 Order name: CMP; Complete Time: 05:46 sp4 06/02 02:57 Order name: Lipase; Complete Time: 05:46 sp4 06/02 02:57 Order name: Urinalysis w/ reflexes; Complete Time: 05:46 sp4 06/02 02:57 Order name: CT Abd/Pelvis - IV Contrast Only sp4 06/02 02:57 Order name: IV Saline Lock; Complete Time: 03:04 sp4 06/02 02:57 Order name: Labs collected and sent; Complete Time: 03:04 sp4 Administered Medications: 03:16 Drug: Ketorolac IVP 30 mg IVP once Route: IVP; Site: right antecubital; al5 04:17 Follow up: Response: No adverse reaction; Pain is decreased br2 03:16 Drug: Methocarbamol PO 1500 mg PO once Route: PO; al5 04:16 Follow up: Response: No adverse reaction; Pain is decreased br2 03:16 Drug: traMADol PO 100 mg PO once Route: PO; al5 04:16 Follow up: Response: No adverse reaction; Pain is decreased br2 03:16 Drug: NS 0.9% IV 1000 ml IV at 1 bolus Per protocol; 1000 mL bolus Route: IV; Rate: 1 al5 bolus; Site: right antecubital; 06:05 Follow up: Response: No adverse reaction; IV Status: Completed infusion; IV Intake: br2 1000ml 06:05 Drug: amLODIPine PO 5 mg PO once Route: PO; br2 06:05 Follow up: Response: Medication administered at discharge. br2 Disposition Summary: 06/02/24 05:53 Discharge Ordered Notes: Location: Home sp4 Problem: new sp4 Symptoms: have improved sp4 Condition: Stable sp4 Diagnosis - Low back pain sp4 - Acute musculo-skeletal back pain sp4 Followup: sp4 - With: Private Physician - When: 7 - 10 days - Reason: Recheck today's complaints Discharge Instructions: - Discharge Summary Sheet sp4 - Acute Back Pain, Adult sp4 Forms: - Patient Portal Instructions sp4 Prescriptions: - amlodipine 5 mg Oral tablet - take 1 tablet ORAL route every morning; 90 tablet; Refills: 0, Product sp4 Selection Permitted - Ibuprofen 800 mg Oral Tablet - take 1 tablet ORAL route every 8 hours As needed take with food; 30 tablet; sp4 Refills: 0, Product Selection Permitted - Tramadol 50 mg Oral tablet - take 1 tablet ORAL route every 8 hours as needed; 20 tablet; Refills: 0, sp4 Product Selection Permitted - methocarbamol 750 mg Oral tablet - take 2 tablets ORAL route every 8 hours for 30 days PRN back pain; 60 tablet; sp4 Refills: 0, Product Selection Permitted Signatures: Dispatcher [employer] EDMS Nayeli Ortega RN RN ha1 Checo Summers MD MD sp4 Mary Batres RN RN al5 Ursula Alexandra, RN RN br2 Corrections: (The following items were deleted from the chart) 02:57 02:57 CBC+H.LAB.BRZ ordered. EDMS EDMS 02:57 02:57 COMPREHENSIVE METABOLIC PANEL+C.LAB.BRZ ordered. EDMS EDMS 02:57 02:57 LIPASE+C.LAB.BRZ ordered. EDMS EDMS 02:57 02:57 Urinalysis+U.LAB.BRZ ordered. EDMS EDMS 02:57 02:57 Abdomen Pelvis W Con+CT.RAD.BRZ ordered. EDMS EDMS
--- NOTE | 2024-06-02 05:54 | ER ---
Nurse's Notes [facility] Name: Mika Alvarado Age: 38 yrs Sex: Male : 1985 Arrival Date: 06/02/2024 Time: 02:20 Bed 6 Private MD: Diagnosis: Low back pain;Acute musculo-skeletal back pain Presentation: 06/02 02:22 Chief complaint: Patient states: SUDDEN ONSET OF BACK PAIN RADIATES TO PELVIC AREA. ha1 02:22 Coronavirus screen: Vaccine status: Patient reports being unvaccinated. Ebola Screen: ha1 No symptoms or risks identified at this time. Initial Sepsis Screen: Does the patient meet any 2 criteria? No. Patient's initial sepsis screen is negative. Does the patient have a suspected source of infection? No. Patient's initial sepsis screen is negative. Risk Assessment: Do you want to hurt yourself or someone else? Patient reports no desire to harm self or others. Onset of symptoms was June 01, 2024. 02:22 Method Of Arrival: Ambulatory ha1 02:22 Acuity: MAMADOU 3 ha1 Triage Assessment: 02:22 General: Appears uncomfortable, Behavior is cooperative. Pain: Complains of pain in ha1 back Pain radiates to pelvis Pain currently is 10 out of 10 on a pain scale. Quality of pain is described as sharp, shooting, Pain began suddenly. Neuro: Level of Consciousness is awake, alert, obeys commands, Oriented to person, place, time, situation. Cardiovascular: Capillary refill < 3 seconds Patient's skin is warm and dry. Respiratory: Airway is patent Respiratory effort is even, unlabored, Respiratory pattern is regular, symmetrical. Historical: - Allergies: 02:22 No Known Allergies; ha1 - Home Meds: 02:22 amlodipine 5 mg tab 1 tab once daily [Active]; amlodipine oral [Active]; losartan oral ha1 [Active]; - PMHx: 02:22 Hypertension; ha1 - Immunization history:: Adult Immunizations up to date. - Infectious Disease History:: Denies. - Social history:: Smoking status: Patient reports the use of cigarette tobacco products, smokes one-half pack cigarettes per day. - Family history:: not pertinent. Screenin:42 [facility] ED Fall Risk Assessment (Adult) History of falling in the last 3 months, al5 including since admission No falls in past 3 months (0 pts) Confusion or Disorientation No (0 pts) Intoxicated or Sedated No (0 pts) Impaired Gait No (0 pts) Mobility Assist Device Used No (0 pt) Altered Elimination No (0 pt) Score/Fall Risk Level 0 - 2 = Low Risk Oriented to surroundings, Maintained a safe environment, Hourly rounding (assess needs \T\ fall precautionary measures) done. Abuse screen: Denies threats or abuse. Denies injuries from another. Nutritional screening: No deficits noted. Tuberculosis screening: No symptoms or risk factors identified. Assessment: 02:42 General: Appears in no apparent distress. Behavior is calm, cooperative. Pain: al5 Complains of pain in back and abdomen. Neuro: Level of Consciousness is awake, alert, obeys commands, Oriented to person, place, time, situation. Cardiovascular: Capillary refill < 3 seconds Patient's skin is warm and dry. Respiratory: Airway is patent Respiratory effort is even, unlabored, Respiratory pattern is regular, symmetrical. GI: Bowel sounds present X 4 quads. Abd is soft X 4 quads. : No signs and/or symptoms were reported regarding the genitourinary system. EENT: No signs and/or symptoms were reported regarding the EENT system. Derm: Skin is intact, Skin is pink, warm \T\ dry. normal. Musculoskeletal: No signs and/or symptoms reported regarding the musculoskeletal system. 04:13 Reassessment: Patient and/or family updated on plan of care and expected duration. Pain br2 level reassessed. Patient is alert, oriented x 3, equal unlabored respirations, skin warm/dry/pink. Patient states feeling better. Patient states symptoms have improved. 04:45 Reassessment: No changes from previously documented assessment. Patient and/or family br2 updated on plan of care and expected duration. Pain level reassessed. Patient is alert, oriented x 3, equal unlabored respirations, skin warm/dry/pink. Patient states feeling better. Patient states symptoms have improved. Vital Signs: 02:22 BP 156 / 113; Pulse 83; Resp 17 S; Temp 98.4(O); Pulse Ox 98% on R/A; Weight 99.79 kg; ha1 04:13 BP 160 / 117; Pulse 69; Resp 18 S; Pulse Ox 100% on R/A; Pain 2/10; br2 04:54 BP 161 / 113; Pulse 63; Resp 18 S; Pulse Ox 97% on R/A; br2 05:55 BP 164 / 120; Pulse 61; Resp 18 S; Pulse Ox 100% on R/A; br2 04:13 Pain Scale: Adult br2 Elizabeth Coma Score: 05:57 Eye Response: spontaneous(4). Motor Response: obeys commands(6). Verbal Response: sp4 oriented(5). Total: 15. ED Course: 02:21 Patient arrived in ED. jj6 02:30 Checo Summers MD is Attending Physician. sp4 02:41 Mary Batres RN is Primary Nurse. al5 02:41 No provider procedures requiring assistance completed. Inserted saline lock: 20 gauge al5 in right antecubital area, using aseptic technique. Blood collected. Flushed with 10 mL NS. 02:41 Patient has correct armband on for positive identification. Bed in low position. Call al5 light in reach. Side rails up X 1. Provided Education on: plan of care. 02:49 Triage completed. ha1 03:00 Arm band placed on right wrist. br2 03:17 Urinalysis w/ reflexes Sent. al5 03:17 CBC with Diff Sent. al5 03:17 CMP Sent. al5 03:17 Lipase Sent. al5 04:09 CT Abd/Pelvis - IV Contrast Only In Process Unspecified. EDMS 04:15 Door closed. Noise minimized. Lights dimmed. Warm blanket given. br2 04:[address] Scan. br2 05:55 IV discontinued, intact, bleeding controlled, No redness/swelling at site. Pressure br2 dressing applied. Administered Medications: 03:16 Drug: Ketorolac IVP 30 mg IVP once Route: IVP; Site: right antecubital; al5 04:17 Follow up: Response: No adverse reaction; Pain is decreased br2 03:16 Drug: Methocarbamol PO 1500 mg PO once Route: PO; al5 04:16 Follow up: Response: No adverse reaction; Pain is decreased br2 03:16 Drug: traMADol PO 100 mg PO once Route: PO; al5 04:16 Follow up: Response: No adverse reaction; Pain is decreased br2 03:16 Drug: NS 0.9% IV 1000 ml IV at 1 bolus Per protocol; 1000 mL bolus Route: IV; Rate: 1 al5 bolus; Site: right antecubital; 06:05 Follow up: Response: No adverse reaction; IV Status: Completed infusion; IV Intake: br2 1000ml 06:05 Drug: amLODIPine PO 5 mg PO once Route: PO; br2 06:05 Follow up: Response: Medication administered at discharge. br2 Medication: 02:42 VIS not applicable for this client. al5 Intake: 06:05 IV: 1000ml; Total: 1000ml. br2 Outcome: 05:53 Discharge ordered by . spAviva 06:07 Discharged to home ambulatory, br2 06:07 Condition: improved 06:07 Discharge instructions given to patient, significant other, Instructed on discharge instructions, follow up and referral plans. medication usage, Demonstrated understanding of instructions, follow-up care, medications, Prescriptions given X 4, 06:08 Patient left the ED. br2 Signatures: Dispatcher [employer] EDMS Paloma Hope jj6 Nayeli Ortega RN RN ha1 Checo Summers MD MD sp4 Mary Batres RN RN al5 Ursula Alexandra RN RN br2
[2024-06-02] MEDS ORDERED: AMLODIPINE 5 MG TAB ONE (06:02)
[2024-06-02 06:34] VITALS: TEMP 98.4
[2024-06-02 06:38] VITALS: BP 164/120; O2SAT 100
== END 2024-06-02 06:08 | disposition home or self-care (01) ==
LOC: ER 02:20
DX: M54.50 Low back pain, unspecified (principal); M54.9 Dorsalgia, unspecified
CPT/HCPCS: 36415; 74177; 80053; 81001; 83690; 85025; 96361; 96374; 99284; J7030; Q9967

== ENCOUNTER 2024-09-23 15:28 | Emergency (ER) | payer SELFPAY ==
--- OUTSIDE RECORDS SUMMARY | 2024-09-23 15:31 | XMS REPORT | Continuity of Care Document ---
Author Name Unknown Address [address] [place] [address] [facility] thconnect Address 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 Role Phone Aram Nowak MD Attending Clinician Allergies, Adverse Reactions, Alerts Allergy Name Allergy Type Status Severity Reaction(s) Onset Date Inactive Date Treating Clinician Comments Source NO KNOWN ALLERGIE S Drug Class Active [facility] Social History Social Habit Start Date Stop Date Quantity Comments Source Sex Assigned At [facility] Exposure to SARS-CoV-2 (event) Not sure [facility] Smoking Status Start Date Stop Date Source Unknown if ever smoked [facility] Medications Ordered Medication Name Filled Medication Name Start Date Stop Date Current Medication? Ordering Clinician Indication Dosage Frequency Signature (SIG) Comments Components Source cloNIDine (CATAPRES) tablet 0.2 mg 02-11 19:15: 00 02-11 18:22 :00 No .2mg 0.2 mg, Oral, ONCE, 1 dose, 02/12/20 at 1415, STAT [facility] lisinopril 10 mg tablet 02-11 00:00: 00 Yes [id number] 10mg Take 1 tablet by mouth at bedtime. [facility] naproxen sodium 550 mg tablet 02-11 00:00: 00 Yes [id number] 550mg Take 1 tablet by mouth 2 (two) times daily with meals. [facility] Vital Signs Vital Name Observation Time Observation Value Comments S viral Systolic blood pressure 2020-02-12 20:30:00 130 mm[Hg] [facility] Diastolic blood pressure 2020-02-12 20:30:00 95 mm[Hg] [facility] Heart rate 2020-02-12 20:30:00 75 /min [facility] Respiratory rate 2020-02-12 20:30:00 16 /min [facility] Oxygen saturation in Arterial blood by Pulse oximetry 2020-02-12 20:30:00 97 /min [facility] Body temperature 2020-02-12 17:39:00 37 Aura [facility] Body height 2020-02-12 17:39:00 175.3 cm [facility] Body weight 2020-02-12 17:39:00 97.523 kg [facility] BMI 2020-02-12 17:39:00 31.75 kg/m2 [facility] Procedures Procedure Date / Time Performed Performing Clinician Source BASIC METABOLIC PANEL (NA, K, CL, CO2, GLUCOSE, BUN, CREATININE, CA) 2020-02-12 19:37:00 Aram Nowak [facility] TROPONIN I 2020-02-12 18:29:00 Aram Nowak [facility] CBC WITH DIFFERENTIAL 2020-02-12 18:29:00 Enid Nowak [facility] NOTICE OF PRIVACY PRACTICES 2020-02-12 17:26:27 Doctor Unassigned, [place] [facility] CONSENT/REFUSAL FOR DIAGNOSIS AND TREATMENT 2020-02-12 17:25:57 Doctor Unassigned, [place] [facility] Encounters Start Date/Time End Date/Time Encounter Type Admission Type Attending Clinicians Care Facility Care Department Encounter ID Source 2023-01-03 11:20:43 2023-01-03 11:20:43 Outpatient [facility] [id number] Lazaro Bella Saul 2022-10-12 12:00:40 2022-10-12 12:00:40 Outpatient [facility] [id number] Lazaro Bella Saul 2022-10-08 10:11:37 2022-10-08 10:11:37 Outpatient [facility] [id number] Lazaro Bella Saul 2022-10-06 11:24:56 2022-10-06 11:24:56 Outpatient [facility] [id number] Lazaro Hughes 2020-02-12 12:27:36 2020-02-12 16:00:00 Emergency Aram Nowak [facility] [id number] [facility] 2020-02-12 12:27:36 2020-02-12 12:27:36 Emergency X [facility] ERT [id number] [facility] Results Test Description Test Time Test Comments Results Result Co mments Source LIPID [id number] 03:51:01* Test Item Value Reference Range Interpretation [...] SPECIMENS. FOR MOREINFORMATION, SEE CLIENT ANNOUNCEMENT AT [email or web address] RATIO LDL/HDL (test code = 2238) 1.93 RATIO <3.55 COMPREHENSIVE METABOLIC [id number] 03:51:01* Test Item Value Reference Range Interpretation Comme nts GLUCOSE (test code = 2217) 103 MG/DL 70-99 H BUN (test code = 2208) 10 MG/DL 6-20 CREATININE (test code = 2214) 1.04 MG/DL 0.80-1.40 eGFR (2020 CKD-EPI) (test code = 71446) 95 ML/MIN/1.73 >60 CALC BUN/CREAT (test code = 2235) 10 RATIO 6-28 SODIUM (test code = 2231) 145 MEQ/L 133-146 POTASSIUM (test code = 2228) 4.1 MEQ/L 3.5-5.4 CHLORIDE (test code = 2215) 101 MEQ/L 95-107 CARBON DIOXIDE (test code = 6) 28 MEQ/L 19-31 CALCIUM (test code = 2208) 10.0 MG/DL 8.5-10.5 PROTEIN, TOTAL (test code = 9) 7.2 G/DL 6.1-8.3 ALBUMIN (test code = 1) 4.7 G/DL 3.5-5.2 CALC GLOBULIN (test code = 0) 2.5 G/DL 1.9-3.7 CALC A/G RATIO (test code = 2233) 1.9 RATIO 1.0-2.6 BILIRUBIN, TOTAL (test code = 2206) 0.6 MG/DL See_Comment [Automated [employer]] The system which generated this result transmitted reference range: <=1.2. The reference range was not used to interpret this result as normal/abnormal. ALKALINE PHOSPHATASE (test code = 2203) 59 U/L 40-117 AST (test code = 2217) 21 U/L 9-50 ALT (test code = 2218) 16 U/L 5-50 CBC WITH [id number] 20:26:00* Test Item Value Reference Range Interpretation Comme nts WBC (test code = 6690-2) See_Comment [Automated [employer]] The system which generated this result transmitted reference range: 4.20 - 10.70 10*3/?L. The reference range was not used to interpret this result as normal/abnormal. RBC (test code = 789-8) See_Comment [Automated [employer]] The system which generated this result transmitted [...] g/dL 31.2-35 H RDW-SD (test code = 66175-3) 46.5 fL 38.5-51.6 RDW-CV (test code = 788-0) 13.8 % 12.1-15.4 PLT (test code = 777-3) See_Comment [Automated [employer]] The system which generated this result transmitted reference range: 150 - 328 10*3/?L. The reference range was not used to interpret this result as normal/abnormal. MPV (test code = 17031-7) 11.2 fL 9.8-13 IPF % (test code = 5106041738) 3.7 % 1.2-10.7 Platelet count measured by fluorescence method. NRBC/100 WBC (test code = 2325625361) See_Comment [Automated [employer] ssage] The system which generated this result transmitted reference range: 0.0 - 10.0 /100 WBCs. The reference range was not used to interpret this result as normal/abnormal. NRBC x10^3 (test code = 2964307094) <0.01 See_Comment [Automated [employer]] The system which generated this result transmitted reference range: 10*3/?L. The reference range was not used to interpret this result as normal/abnormal. GRAN MAT (NEUT) % (test code = 770-8) 52.5 % IMM GRAN % (test code = 5403773531) 0.90 % LYMPH % (test code = 736-9) 35.5 % MONO % (test code = 5905-5) 8.6 % EOS % (test code = 713-8) 1.6 % BASO % (test code = 706-2) 0.9 % GRAN MAT x10^3(ANC) (test code = 6476855273) 3.65 10*3/uL 1.99-6.95 IMM GRAN x10^3 (test code = 8741643201) 0.06 10*3/uL 0-0.06 LYMPH x10^3 (test code = 731-0) 2.47 10*3/uL 1.09-3.23 MONO x10^3 (test code = 742-7) 0.60 10*3/uL 0.36-1.02 EOS x10^3 (test code = 711-2) 0.11 10*3/uL 0.06-0.53 BASO x10^3 (test code = 704-7) 0.06 10*3/uL 0.01-0.09 GIANT PLATELETS (test code = 5908-9) Present See_Comment A [Automated [employer]] The system which generated this result transmitted reference range: (none). The reference range was not used to interpret this result as normal/abnormal. Lab Interpretation (test code = 89166-9) Abnormal [facility] METABOLIC PANEL (NA, K, CL, CO2, GLUCOSE, BUN, CREATININE, CA)2020-02-12 20:01:00* Test Item Value Reference Range Interpretation Comme nts NA (test code = 4647016010) 137 mmol/L 135-145 K (test code = 6980453241) 4.0 mmol/L 3.5-5 CL (test code = 6252750554) 105 mmol/L 98-108 CO2 TOTAL (test code = 8548690904) 26 mmol/L 23-31 AGAP (test code = 5777129990) 2-16 BUN (test code = 9897130925) 14 mg/dL 7-23 GLUCOSE (test code = 1463183703) 106 mg/dL 70-110 CREATININE (test code = 1205207347) 0.88 mg/dL 0.6-1.25 CALCIUM (test code = 8208354690) 9.3 mg/dL 8.6-10.6 eGFR Calculation (Non-) (test code = 3341034459) mL/min/1.73m2 eGFR Calculation () (test code = 0338052228) mL/min/1.73m2 SUMIT (test code = SUMIT) Association [...] or urine or abnormalities in imaging tests). [id number] 19:30:00* Test Item Value Reference Range Interpretation Comme nts TROPONIN I (test code = 1957929761) 0.018 ng/mL See_Comment [Automated message] The system [...] biotin. ? Lab Interpretation (test code = 24624-5) Normal [facility]"
[2024-09-23] MEDS ORDERED: cloNIDine HCL 0.1 MG TAB ONE (16:05)
[2024-09-23 16:10] LABS: Absolute Basophils 0.1 K/uL (0-0.5); Absolute Eosinophils 0.1 K/uL (0-0.5); Absolute Lymphocytes (CBC) 2.1 K/uL (0.7-4.9); Absolute Monocytes 0.5 K/uL (0.1-1.3); Absolute Neutrophil 4.2 K/uL (1.8-8.0); Basophils % 1.1 % (0-1.3); Eosinophils % 1.4 % (0-4.4); Hematocrit 40.2 % (39.6-49.0); Hemoglobin 14.1 g/dL (13.6-17.9); Lymphocytes % 30.4 % (15.3-44.8); MCH 32.5 pg (27.0-35.0); MCHC 35.1 g/dL (32.0-36.0); MCV 92.5 fL (80-100); MPV 8.4 fL (7.6-11.3); Monocytes % 7.5 % (3.3-12.3); Neutrophils % 59.6 % (41.7-73.7); Nucleated Red Blood Cells % 0.1 % (0-0); Platelets 337 thou/uL (152-406); RBC Red Blood Cell Count 4.34 M/uL (4.33-5.43)
[2024-09-23 16:23] LABS: PT Prothrombin Time 12.8 SECONDS (9.4-12.5); Protime INR 1.22
--- NOTE | 2024-09-23 16:25 | RAD REPORT ---
EXAM: Chest Single View HISTORY: HTN COMPARISON: None. FINDINGS: LUNGS/PLEURA: The lungs are clear. No pleural effusions or pneumothorax. No pulmonary edema. MEDIASTINUM: The mediastinal silhouette is within normal limits. CARDIAC: The cardiac silhouette is within normal limits. UPPER ABDOMEN: No significant abnormality. BONES: No acute abnormality. LINES/TUBES/OTHER: N/A IMPRESSION: No evidence of acute cardiopulmonary disease.
[2024-09-23 16:27] LABS: Anion Gap 9.5 mEq/L (5.0-15.0); Potassium 3.5 mEq/L (3.5-5.1); Troponin High Sensitivity 6.3 pg/mL (<58.9)
--- NOTE | 2024-09-23 17:10 | RAD REPORT ---
EXAMINATION: CT HEAD WITHOUT CONTRAST CLINICAL INDICATION: Male, 39 years old.headache, blurred vision, HTN TECHNIQUE: Axial CT images from the skull base to the vertex without intravenous contrast. Coronal an d sagittal reformatted images were created from the data set. One or more of the following dose reduction techniques were used: Automated exposure control, adjustment of the mA and/or kV according to patient size, and/or iterative reconstruction. Unless otherwise specified, incidental findings do not require dedicated imaging follow-up. [id number]. COMPARISON: 03/28/2017 FINDINGS: INTRACRANIAL: No acute intracranial hemorrhage. No hydrocephalus. No mass effect or midline shift. No significant white matter disease. VASCULATURE: No visualized abnormalities in the arteries or dural venous sinuses. SCALP/SKULL: No significant soft tissue or osseous abnormalities. SINUSES: The visualized paranasal sinuses and mastoid air cells are predominantly clear. IMPRESSION: No acute intracranial abnormality.
[2024-09-23] MEDS ORDERED: ONDANSETRON 4 MG/2 ML VIAL ONE (17:20)
[2024-09-23] MEDS ORDERED: MORPHINE 4 MG/ML SYR ONE (17:20)
--- NOTE | 2024-09-23 17:40 | EDPHYS ---
Physician Documentation [facility] Name: Mika Alvarado Age: 39 yrs Sex: Male : 1985 Arrival Date: 09/23/2024 Time: 15:28 Bed 6 Private MD: ED Physician Roly Dixon HPI: 09/23 17:00 This 39 yrs old Black Male presents to ER via Ambulatory with complaints of Blurred rn Vision, Headache. 17:01 The patient complains of pain to the top of head. The patient describes the headache as rn aching. 17:01 Onset: The symptoms/episode began/occurred this morning. Severity of symptoms: At its rn worst the pain was mild, in the emergency department the pain is unchanged. The symptoms are alleviated by nothing. the symptoms are aggravated by nothing. The patient has not experienced similar symptoms in the past. Patient reports high blood pressure, noticed it today, has had hypertensive problems in the past, takes amlodipine. Takes amlodipine daily. Has not missed doses or run out of medication. Reports mild headache, blurred vision that is intermittent and generalized malaise with feelings of anxiousness. No chest pain or shortness of breath. No abdominal pain. No vomiting or diarrhea. No back pain.. Historical: - Allergies: 15:48 No Known Allergies; db - PMHx: 15:48 Hypertension; db - Immunization history:: Adult Immunizations unknown. - Infectious Disease History:: Denies. - Social history:: Smoking status: Patient reports the use of cigarette tobacco products, smokes one-half pack cigarettes per day. - Family history:: not pertinent. - Hospitalizations: : No recent hospitalization is reported. ROS: 17:01 Constitutional: Negative for fever, chills, and weight loss, Eyes: Positive for blurred rn vision that is intermittent, no current blurred vision Neck: Negative for injury, pain, and swelling, Cardiovascular: Negative for chest pain, palpitations, and edema, Respiratory: Negative for shortness of breath, cough, wheezing, and pleuritic chest pain, Abdomen/GI: Negative for abdominal pain, nausea, vomiting, diarrhea, and constipation, Back: Negative for injury and pain, : Negative for injury, bleeding, discharge, and swelling, MS/Extremity: Negative for injury and deformity, Skin: Negative for injury, rash, and discoloration, Neuro: Positive for headache Exam: 17:01 Constitutional: This is a well developed, well nourished patient who is awake, alert, rn seems anxious Head/Face: Normocephalic, atraumatic. Eyes: Pupils equal round and reactive to light, extra-ocular motions intact. Neck: No meningismus Cardiovascular: Regular rate and rhythm. No pulse deficits. Respiratory: No increased work of breathing, no retractions or nasal flaring. Abdomen/GI: Soft, non-tender, no masses MS/ Extremity: Pulses equal, no cyanosis. Neurovascular intact. Full, normal range of motion. Equal circumference. Neuro: Awake and alert, GCS 15, oriented to person, place, time, and situation. Cranial nerves II-XII grossly intact. Motor strength 5/5 in all extremities. Sensory grossly intact. Cerebellar exam normal. Normal gait. 17:34 ECG was reviewed by the Attending Physician. rn Vital Signs: 15:46 BP 174 / 122; Pulse 102; Resp 18; Temp 98; Pulse Ox 98% ; Weight 98.43 kg; Height 5 ft. db 9 in. ; Pain 8/10; 15:51 BP 169 / 115; db 16:15 BP 158 / 112; Pulse 90; Resp 17; Pulse Ox 98% ; ll1 16:24 BP 160 / 104; Pulse 91; ll1 17:10 BP 163 / 107; Pulse 89; Resp 18; ll1 17:26 BP 156 / 99; Pulse 89; Resp 18; ll1 17:44 BP 160 / 97; Pulse 89; Resp 17; Pulse Ox 99% ; Pain 3/10; ll1 15:46 Body Mass Index 32.04 (98.43 kg, 175.26 cm) db 15:46 Pain Scale: Adult db 17:44 Pain Scale: Adult ll1 15:51 REPEAT db [place] Coma Score: 17:37 Eye Response: spontaneous(4). Motor Response: obeys commands(6). Verbal Response: rn oriented(5). Total: 15. MDM: 15:47 Medical Screening Exam initiated rn 17:37 Differential diagnosis: hypertensive headache, intracerebral hemorrhage, migraine, rn tension headache, vasomotor headache. Data reviewed: vital signs, nurses notes, lab test result(s), EKG, radiologic studies, CT scan, plain films, and as a result, I will discharge patient. Care significantly affected by the following chronic conditions: Hypertension. Counseling: I had a detailed discussion with the patient and/or guardian regarding the historical points, exam findings, and any diagnostic results supporting the discharge/admit diagnosis, the presence of at least one elevated blood pressure reading (>120/80) during this emergency department visit, lab results, radiology results, the need for outpatient follow up, to return to the emergency department if symptoms worsen or persist or if there are any questions or concerns that arise at home. Response to treatment: the patient's symptoms have markedly improved after treatment, and as a result, I will discharge patient. Special discussion: I have referred the patient to see his PCP for further evaluation of high blood pressure. I discussed with the patient/guardian in detail that at this point there is no indication for admission to the hospital. It is understood, however, that if the symptoms persist or worsen the patient needs to return immediately for re-evaluation. Based on the history and exam findings, there is no indication for further emergent testing or inpatient evaluation. I discussed with the patient/guardian the need to see the primary care provider for further evaluation of the symptoms. ED course: No acute endorgan damage from hypertension. CT head negative. Troponin negative. No renal insufficiency. Will discharge home to take blood pressure journal, instructed to take extra amlodipine if systolic above 200 or diastolic above 100, otherwise will follow-up with PCP for blood pressure management and take a blood pressure journal. I have personally reviewed all of the results, including but not limited to blood tests and imaging deemed necessary to safely discharge this patient at this time. All results given to and printed out for patient. I personally went over all the results with the patient and answered all questions. Patient will follow-up with PCP and or specialist as discussed. Return precautions given and understood.. 09/23 15:54 Order name: Basic Metabolic Panel; Complete Time: 16:09/23 15:54 Order name: CBC with Diff; Complete Time: 16:09/23 15:54 Order name: NT PRO-BNP; Complete Time: 16:09/23 15:54 Order name: PT-INR; Complete Time: 16:09/23 15:54 Order name: Troponin HS; Complete Time: 16:09/23 15:54 Order name: XRAY Chest (1 view); Complete Time: 16:09/23 15:54 Order name: CT Head Brain wo Cont; Complete Time: 17:16 rn 09/23 15:54 Order name: Cardiac monitoring; Complete Time: 16:13 rn 09/23 15:54 Order name: EKG - Nurse/Tech; Complete Time: 16:13 rn 09/23 15:54 Order name: IV Saline Lock; Complete Time: 15:55 rn 09/23 15:54 Order name: Labs collected and sent; Complete Time: 15:55 rn 09/23 15:54 Order name: O2 Per Protocol; Complete Time: 15:55 rn 09/23 15:54 Order name: O2 Sat Monitoring; Complete Time: 15:55 rn EC:34 Rate is 89 beats/min. Rhythm is regular. QRS [place] is Normal. [place] interval is normal. QRS rn interval is normal. QT interval is normal. No Q waves. T waves are Normal. No ST changes noted. Clinical impression: Normal ECG. Interpreted by me. Reviewed by me. Administered Medications: 16:13 Drug: cloNIDine PO 0.1 mg PO once Route: PO; hb 17:25 Follow up: Response: No adverse reaction; Blood pressure is lowered; RASS: Alert and ll1 Calm (0) 17:25 Drug: morphine IVP or IV 4 mg IVP once over 4 mins {Note: pain 8/10 RASS 0.} Route: ll1 IVP; Infused Over: 4 mins; Site: right antecubital; 17:53 Follow up: Response: No adverse reaction; Pain is decreased; RASS: Alert and Calm (0) ll1 17:25 Drug: Ondansetron IVP 4 mg IVP once; over 2 minutes Route: IVP; Site: right antecubital;ll1 17:54 Follow up: Response: No adverse reaction; Nausea is decreased; RASS: Alert and Calm (0) ll1 Disposition Summary: 09/23/24 17:40 Discharge Ordered Notes: Location: Home rn Problem: new rn Symptoms: have improved rn Condition: Stable rn Diagnosis - Essential (primary) hypertension rn Followup: rn - With: Private Physician - When: As needed - Reason: Recheck today's complaints, Re-evaluation by your physician Discharge Instructions: - Discharge Summary Sheet rn - Hypertension, Adult rn - How to Take Your Blood Pressure, [id number] rn - Managing Your Hypertension rn Forms: - Medication Reconciliation Form rn - 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 EDMS EDMS
--- NOTE | 2024-09-23 17:40 | ER ---
Nurse's Notes [facility] Name: Mika Alvarado Age: 39 yrs Sex: Male : 1985 Arrival Date: 09/23/2024 Time: 15:28 Bed 6 Private MD: Diagnosis: Essential (primary) hypertension Presentation: 09/23 15:46 Chief complaint: Patient states: HEADACHE, BLURRY VISION, ABD PAIN WITH NAUSEA STARTED db THIS AM. COMPLIANT WITH BP MEDICATIONS. Coronavirus screen: Client denies travel out of the [place] in the last 14 days. At this time, the client does not indicate any symptoms associated with coronavirus-19. Ebola Screen: Patient negative for fever greater than or equal to 101.5 degrees Fahrenheit, and additional compatible Ebola Virus Disease symptoms Patient denies exposure to infectious person. Patient denies travel to an Ebola-affected area in the 21 days before illness onset. No symptoms or risks identified at this time. Initial Sepsis Screen: Does the patient meet any 2 criteria? No. Patient's initial sepsis screen is negative. Does the patient have a suspected source of infection? No. Patient's initial sepsis screen is negative. Risk Assessment: Do you want to hurt yourself or someone else? Patient reports no desire to harm self or others. Onset of symptoms was September 23, 2024. 15:46 Method Of Arrival: Ambulatory db 15:46 Acuity: MAMADOU 2 db Triage Assessment: 15:48 General: Appears in no apparent distress. comfortable, Behavior is calm, cooperative. db Pain: Complains of pain in head. Neuro: Level of Consciousness is awake, alert, obeys commands, Oriented to person, place, time, situation. Respiratory: Airway is patent Respiratory effort is even, unlabored, Respiratory pattern is regular, symmetrical. GI: Reports upper abdominal pain. Historical: - Allergies: 15:48 No Known Allergies; db - PMHx: 15:48 Hypertension; db - Immunization history:: Adult Immunizations unknown. - Infectious Disease History:: Denies. - Social history:: Smoking status: Patient reports the use of cigarette tobacco products, smokes one-half pack cigarettes per day. - Family history:: not pertinent. - Hospitalizations: : No recent hospitalization is reported. Screenin:16 [facility] ED Fall Risk Assessment (Adult) History of falling in the last 3 months, ll1 including since admission No falls in past 3 months (0 pts) Confusion or Disorientation No (0 pts) Intoxicated or Sedated No (0 pts) Impaired Gait No (0 pts) Mobility Assist Device Used No (0 pt) Altered Elimination No (0 pt) Score/Fall Risk Level 0 - 2 = Low Risk Maintained a safe environment, Hourly rounding (assess needs \T\ fall precautionary measures) done. Abuse screen: Denies threats or abuse. Nutritional screening: No deficits noted. Tuberculosis screening: No symptoms or risk factors identified. Assessment: 16:15 General: Appears uncomfortable, Behavior is calm, cooperative, appropriate for age. ll1 Pain: Complains of pain in head Quality of pain is described as aching. Neuro: Reports blurred vision dizziness, headache weakness high BP. Cardiovascular: Reports fatigue. GI: Reports cramping, nausea. 17:10 Reassessment: No changes from previously documented assessment. Patient and/or family ll1 updated on plan of care and expected duration. Pain level reassessed. Patient is alert, oriented x 3, equal unlabored respirations, skin warm/dry/pink. 17:26 Reassessment: No changes from previously documented assessment. Patient and/or family ll1 updated on plan of care and expected duration. Pain level reassessed. 17:45 GI: Bowel sounds present X 4 quads. Abd is soft and non tender X 4 quads. ll1 17:53 Reassessment: No changes from previously documented assessment. Patient and/or family ll1 updated on plan of care and expected duration. Pain level reassessed. Patient states feeling better. Vital Signs: 15:46 BP 174 / 122; Pulse 102; Resp 18; Temp 98; Pulse Ox 98% ; Weight 98.43 kg; Height 5 ft. db 9 in. ; Pain 8/10; 15:51 BP 169 / 115; db 16:15 BP 158 / 112; Pulse 90; Resp 17; Pulse Ox 98% ; ll1 16:24 BP 160 / 104; Pulse 91; ll1 17:10 BP 163 / 107; Pulse 89; Resp 18; ll1 17:26 BP 156 / 99; Pulse 89; Resp 18; ll1 17:44 BP 160 / 97; Pulse 89; Resp 17; Pulse Ox 99% ; Pain 3/10; ll1 15:46 Body Mass Index 32.04 (98.43 kg, 175.26 cm) db 15:46 Pain Scale: Adult db 17:44 Pain Scale: Adult ll1 15:51 REPEAT db [place] Coma Score: 17:37 Eye Response: spontaneous(4). Motor Response: obeys commands(6). Verbal Response: rn oriented(5). Total: 15. ED Course: 15:31 Patient arrived in ED. al6 15:47 Roly Dixon MD is Attending Physician. rn 15:48 Triage completed. db 15:48 Arm band placed on. db 15:52 Barbi Jackson, RN is Primary Nurse. ll1 16:00 Provided Education on: ER procedures and process. ll1 16:03 Initial lab(s) drawn, by me, sent to lab. Inserted saline lock: 22 gauge in right ll1 antecubital area, using aseptic technique. Blood collected. Flushed with 10 mL NS. 16:16 Patient has correct armband on for positive identification. Bed in low position. Call ll1 light in reach. Client placed on continuous cardiac and pulse oximetry monitoring. NIBP monitoring applied. pvc monitor on. 16:17 EKG done, by ED staff, reviewed by Roly Dixon MD. ll1 16:21 XRAY Chest (1 view) In Process Unspecified. EDMS 16:43 CT Head Brain wo Cont In Process Unspecified. EDMS 17:44 No provider procedures requiring assistance completed. IV discontinued, intact, ll1 bleeding controlled, No redness/swelling at site. Pressure dressing applied. Administered Medications: 16:13 Drug: cloNIDine PO 0.1 mg PO once Route: PO; hb 17:25 Follow up: Response: No adverse reaction; Blood pressure is lowered; RASS: Alert and ll1 Calm (0) 17:25 Drug: morphine IVP or IV 4 mg IVP once over 4 mins {Note: pain 8/10 RASS 0.} Route: ll1 IVP; Infused Over: 4 mins; Site: right antecubital; 17:53 Follow up: Response: No adverse reaction; Pain is decreased; RASS: Alert and Calm (0) ll1 17:25 Drug: Ondansetron IVP 4 mg IVP once; over 2 minutes Route: IVP; Site: right antecubital;ll1 17:54 Follow up: Response: No adverse reaction; Nausea is decreased; RASS: Alert and Calm (0) ll1 Medication: 16:16 VIS not applicable for this client. ll1 Outcome: 17:40 Discharge ordered by . rn 17:45 Condition: stable ll1 17:53 Discharged to home ambulatory, ll1 17:53 Discharge instructions given to patient, family, Instructed on discharge instructions, follow up and referral plans. Demonstrated understanding of instructions, follow-up care, 17:54 Patient left the ED. ll1 Signatures: Dispatcher [employer] EDMS Roly Dixon MD MD rn Baxter, Heather, RN RN hb Lewis, Lynsay, RN RN ll1 Evi Gentile RN RN db Landin, Alissa al6 Corrections: (The following items were deleted from the chart) 15:52 15:46 Chief complaint: Patient states: HEADACHE, BLURRY VISION, ABD PAIN WITH NAUSEA db STARTED THIS AM db 17:53 17:44 BP 160 / 97; Pulse 89bpm; Resp 17bpm; Pulse Ox 99%; ll1 ll1
[2024-09-23 21:56] VITALS: TEMP 98
[2024-09-23 22:12] VITALS: BP 160/97; O2SAT 99
--- NOTE | 2024-09-26 12:39 | EKG ---
Test Date: 2024-09-23 Test Time: 16:10:36 Senior Business Analyst: MERON MEASUREMENT RESULTS: Intervals: Rate: 89 IL: 134 QRSD: 90 QT: 370 QTc: 450 [place]: P: 32 IL: 134 QRS: 63 T: -13 INTERPRETIVE STATEMENTS: Normal sinus rhythm Normal ECG Compared to ECG 02/22/2024 16:14:39 Left ventricular hypertrophy no longer present Myocardial infarct finding no longer present Electronically Signed On 09-26-24 12:33:29 CARE MANAGER CNA by Matthias Varner
== END 2024-09-23 17:54 | disposition home or self-care (01) ==
LOC: ER 15:28
DX: I10 Essential (primary) hypertension (principal)
CPT/HCPCS: 36415; 70450; 71045; 80048; 83880; 84484; 85025; 85610; 93005; 96374; 96375; 99285; J2405

== ENCOUNTER 2024-12-31 10:41 | Emergency (ER) | payer OTHER ==
--- OUTSIDE RECORDS SUMMARY | 2024-12-31 10:48 | XMS REPORT | Continuity of Care Document ---
Author Name Unknown Address [address] [place] [address] [address]. [address] [place] [address] [facility] Address [address] [facility] [address] [place] [address] Care Team Providers Care Community Health Educator Name Role Phone Isauro Syed Primary Care Physician [phone] Allergies, Adverse Reactions, Alerts Allergy Name Allergy Type Status Severity Reaction(s) Onset Date Inactive Date Treating Clinician Comments Source Lisinopr il Propensi ty to adverse reaction to drug Active 11-19 00:00: 00 Lazaro Hughes Medications Ordered Medication Name Filled Medication Name Start Date Stop Date Current Medication? Ordering Clinician Indication Dosage Frequency Signature (SIG) Comments Components Source amlodipine 10 mg tablet 11-12 00:00: 00 Yes 1mg Lazaro Hughes hydrochloro thiazide 12.5 mg tablet 11-12 00:00: 00 Yes 1mg Lazaro Hughes IBUPROFEN 800 MG 03-22 00:00: 00 Yes Lazaro Hughes TAKE 1 TABLET DAILY. - 00:00: 00 Yes 10 Lazaro Hughes TAKE 1 TABLET DAILY. - 00:00: 00 Yes 100 Lazaro Hughes TAKE 1 TABLET DAILY. 2-09 00:00: 00 04-26 00:00 :00 No 100 Lazaro Hughes TAKE 1 TABLET DAILY. 2-09 00:00: 00 04-26 00:00 :00 No 10 Lazaro Hughes TAKE 2 TABLETS BY MOUTH ONCE DAILY FOR 5 DAYS 09-20 00:00: 00 Yes Lazaro Hughes TAKE 1 TABLET BY MOUTH TWICE DAILY NEEDED 09-20 00:00: 00 Yes Lazaro Hughes TAKE 2 TABLETS BY MOUTH ON DAY 1, AND THEN TAKE 1 TABLET BY MOUTH ONCE A DAY ON DAY 2 THROUGH DAY 5 2021-08 00:00: 00 Yes Lazaro Hughes TAKE 1 TABLET BY MOUTH ONCE DAILY 2021-08 00:00: 00 Yes Lazaro Hughes TAKE 1 TABLET BY MOUTH THREE TIMES DAILY NEEDED FOR MUSCLE SPASMS 2021-08 00:00: 00 Yes Lazaro Hughes TAKE 1 TABLET BY MOUTH EVERY 6 HOURS NEEDED FOR PAIN CONTROL, TAKE WITH FOOD 2021-08 00:00: 00 Yes Lazaro Hughes TAKE BY MOUTH DIRECTED ON INSIDE OF PACKAGE 2021-08 00:00: 00 Yes Lazaro Hughes TAKE 1 TABLET BY MOUTH ONCE DAILY 2021-08 00:00: 00 04-26 00:00 :00 No Lazaro Hughes Vitamin D2 1,250 mcg (50,000 unit) capsule 09-30 00:00: 00 Yes 1-5.84 gram Lazaro Hughes amlodipine 5 mg tablet 09-26 00:00: 00 Yes 1mg Lazaro Hughes amlodipine 5 mg tablet 11-19 00:00: 00 Yes 1mg Lazaro Hughes amlodipine 5 mg tablet 2015-08 00:00: 00 Yes 1mg Lazaro Hughes lisinopril 20 mg tablet 03-30 00:00: 00 Yes 1mg Lazaro Hughes diclofenac ER 100 mg tablet,exte nded release 24 hr 01-06 00:00: 00 Yes 1mg Lazaro Hughes Robaxin 500 mg tablet 01-06 00:00: 00 Yes 1mg Lazaro Hughes naproxen 500 mg tablet 11-16 00:00: 00 Yes 1mg Lazaro Hughes lisinopril 20 mg tablet 09-09 00:00: 00 Yes 1mg Lazaro Hughes Zithromax Z-Tahir 250 mg tablet 09-09 00:00: 00 Yes 1mg Lazaro Hughes Immunizations Ordered Immunization Name Filled Immunization Name Date Status Comments Source Tdap Tdap 2020-09-26 00:00:00 Completed Lazaro F Saul Vital Signs Vital Name Observation Time Observation Value Comments S ource Weight Measured 2024-11-12 16:09:00 242.00 pounds Lazaro F Saul Height Measured 2024-11-12 16:09:00 68.90 inches Lazaro F Saul Body Temperature 2024-11-12 16:09:00 98.20 degrees Lazaro F Saul Heart Rate 2024-11-12 16:09:00 96.00 /min Silvana en F Saul Respiratory Rate 2024-11-12 16:09:00 18.00 /min Lazaro F Saul BP Systolic 2024-11-12 16:09:00 148 mm[Hg] Step hen F Saul BP Diastolic 2024-11-12 16:09:00 93 mm[Hg] Gold phen F Saul BP Systolic 2022-10-13 10:46:00 142 mm[Hg] Step hen F Saul BP Diastolic 2022-10-13 10:46:00 99 mm[Hg] Gold phen F Saul Weight Measured 2022-10-13 10:46:00 Lazaro F Saul Height Measured 2022-10-13 10:46:00 Lazaro F Saul Body Temperature 2022-10-13 10:46:00 Lazaro F Saul Heart Rate 2022-10-13 10:46:00 Silvana en F Saul Respiratory Rate 2022-10-13 10:46:00 Lazaro F Saul BP Systolic 2022-10-12 12:01:00 132 mm[Hg] Step hen F Saul BP Diastolic 2022-10-12 12:01:00 90 mm[Hg] Gold phen F Saul Weight Measured 2022-10-12 12:01:00 Lazaro F Saul Height Measured 2022-10-12 12:01:00 Lazaro F Saul Body Temperature 2022-10-12 12:01:00 Lazaro F Saul Heart Rate 2022-10-12 12:01:00 Silvana en F Saul Respiratory Rate 2022-10-12 12:01:00 Lazaro F Saul BP Systolic 2022-10-08 10:15:00 163 mm[Hg] Step hen F Saul BP Diastolic 2022-10-08 10:15:00 108 mm[Hg] Gold phen F Saul Weight Measured 2022-10-08 10:15:00 Lazaro F Saul Height Measured 2022-10-08 10:15:00 Lazaro F Saul Body Temperature 2022-10-08 10:15:00 Lazaro F Saul Heart Rate 2022-10-08 10:15:00 Silvana en F Saul Respiratory Rate 2022-10-08 10:15:00 Lazaro F Saul BP Systolic 2022-10-07 10:29:00 154 mm[Hg] Step hen F Saul BP Diastolic 2022-10-07 10:29:00 110 mm[Hg] Gold phen F Saul Weight Measured 2022-10-07 10:29:00 Lazaro F Saul Height Measured 2022-10-07 10:29:00 Lazaro F Saul Body Temperature 2022-10-07 10:29:00 Lazaro F Saul Heart Rate 2022-10-07 10:29:00 Silvana en F Saul Respiratory Rate 2022-10-07 10:29:00 Lazaro F Saul BP Diastolic 2022-10-06 11:29:00 113 mm[Hg] Gold phen F Saul Weight Measured 2022-10-06 11:29:00 Lazaro F Saul Height Measured 2022-10-06 11:29:00 Lazaro F Saul Body Temperature 2022-10-06 11:29:00 Lazaro F Saul Heart Rate 2022-10-06 11:29:00 Silvana en F Saul Respiratory Rate 2022-10-06 11:29:00 Lazaro F Saul BP Systolic 2022-10-06 11:29:00 163 mm[Hg] Step hen F Saul BP Systolic 2022-10-06 08:45:00 161 mm[Hg] Step hen F Saul BP Diastolic 2022-10-06 08:45:00 107 mm[Hg] Gold phen F Saul Weight Measured 2022-10-06 08:45:00 218.40 pounds Lazaro F Saul Height Measured 2022-10-06 08:45:00 68.90 inches Lazaro F Saul Body Temperature 2022-10-06 08:45:00 98.10 degrees Lazaro F Saul Heart Rate 2022-10-06 08:45:00 103.00 /min Step hen F Saul Respiratory Rate 2022-10-06 08:45:00 18.00 /min Lazaro F Saul BP Systolic 2020-09-26 08:51:00 170 mm[Hg] Step hen F Saul BP Diastolic 2020-09-26 08:51:00 101 mm[Hg] Gold phen F Saul Weight Measured 2020-09-26 08:51:00 233.40 pounds Lazaro F Saul Height Measured 2020-09-26 08:51:00 68.90 inches Lazaro F Saul Body Temperature 2020-09-26 08:51:00 98.90 degrees Lazaro F Saul Heart Rate 2020-09-26 08:51:00 87.00 /min Silvana en F Saul Respiratory Rate 2020-09-26 08:51:00 18.00 /min Lazaro F Saul BP Systolic 2017-11-19 10:43:00 166 mm[Hg] Step hen F Saul BP Diastolic 2017-11-19 10:43:00 114 mm[Hg] Gold phen F Saul Weight Measured 2017-11-19 10:43:00 235.00 pounds Lazaro F Saul Height Measured 2017-11-19 10:43:00 69.00 inches Lazaro F Saul Body Temperature 2017-11-19 10:43:00 98.70 degrees Lazaro F Saul Heart Rate 2017-11-19 10:43:00 95.00 /min Silvana en F Saul Respiratory Rate 2017-11-19 10:43:00 18.00 /min Lazaro F Saul BP Systolic 2016-07-20 11:44:00 146 mm[Hg] Step hen F Saul BP Diastolic 2016-07-20 11:44:00 93 mm[Hg] Gold phen F Saul Weight Measured 2016-07-20 11:44:00 224.80 pounds Lazaro F Saul Height Measured 2016-07-20 11:44:00 69.00 inches Lazaro F Saul Body Temperature 2016-07-20 11:44:00 98.40 degrees Lazaro F Saul Heart Rate 2016-07-20 11:44:00 81.00 /min Silvana en F Saul Respiratory Rate 2016-07-20 11:44:00 Lazaro F Saul Encounters Start Date/Time End Date/Time Encounter Type Admission Type Attending [facility] Care Department Encounter ID Source 2024-11-12 15:55:16 2024-11-12 15:55:16 Outpatient [facility] [id number] Lazaro F Saul 2024-11-12 00:00:00 2024-11-12 00:00:00 Outpatient Visit [facility] [id number] Lazaro Hughes 2023-01-03 11:20:43 2023-01-03 11:20:43 Outpatient [facility] [id number] Lazaro Hughes 2022-10-12 12:00:40 2022-10-12 12:00:40 Outpatient [facility] [id number] Lazaro Hughes 2022-10-08 10:11:37 2022-10-08 10:11:37 Outpatient [facility] [id number] Lazaro Hughes 2022-10-06 11:24:56 2022-10-06 11:24:56 Outpatient [facility] [id number] Lazaro Hughes Results Test Description Test Time Test Comments Results Result Co mments Source LIPID [id number] 03:51:01* Test Item Value Reference Range Interpretation [...] SPECIMENS. FOR MOREINFORMATION, SEE CLIENT ANNOUNCEMENT AT [email or web address] RISK RATIO LDL/HDL (test code = 2238) 1.93 RATIO <3.55 COMPREHENSIVE METABOLIC [id number] 03:51:01* Test Item Value Reference Range Interpretation Comme nts GLUCOSE (test code = 2217) 103 MG/DL 70-99 H BUN (test code = 2208) 10 MG/DL 6-20 CREATININE (test code = 2214) 1.04 MG/DL 0.80-1.40 eGFR (2020 CKD-EPI) (test code = 26590) 95 ML/MIN/1.73 >60 CALC BUN/CREAT (test code = 2235) 10 RATIO 6-28 SODIUM (test code = 223) 145 MEQ/L 133-146 POTASSIUM (test code = 2228) 4.1 MEQ/L 3.5-5.4 CHLORIDE (test code = 2215) 101 MEQ/L 95-107 CARBON DIOXIDE (test code = 2206) 28 MEQ/L 19-31 CALCIUM (test code = 2209) 10.0 MG/DL 8.5-10.5 PROTEIN, TOTAL (test code = 2229) 7.2 G/DL 6.1-8.3 ALBUMIN (test code = 2201) 4.7 G/DL 3.5-5.2 CALC GLOBULIN (test code = 2240) 2.5 G/DL 1.9-3.7 CALC A/G RATIO (test code = 2234) 1.9 RATIO 1.0-2.6 BILIRUBIN, TOTAL (test code = 2207) 0.6 MG/DL See_Comment [Automated me ssage] The system which generated this result transmitted reference range: <=1.2. The reference range was not used to interpret this result as normal/abnormal. ALKALINE PHOSPHATASE (test code = 2203) 59 U/L 40-117 AST (test code = 2218) 21 U/L 9-50 ALT (test code = 2219) 16 U/L 5-50 LIPID [id number] 00:00:00* Test Item Value Reference Range Interpretation Comme nts CHOLESTEROL (test code = 2210) 185 MG/DL TRIGLYCERIDES (test code = 2232) 86 MG/DL HDL CHOLESTEROL (test code = 2220) 57 MG/DL CALC LDL CHOL (test code = 2237) 110 MG/DL RISK RATIO LDL/HDL (test cod e = 2238) 1.93 RATIO Lazaro F AustinCOMPREHENSIVE METABOLIC [id number] 00:00:00* Test Item Value Reference Range Interpretation Comme nts GLUCOSE (test code = 2217) 103 MG/DL BUN (test code = 2208) 10 MG/DL CREATININE (test code = 2214) 1.04 MG/DL eGFR (2020 CKD-EPI) (test co de = 01344) 95 ML/MIN/1.73 CALC BUN/CREAT (test code = 2235) 10 RATIO SODIUM (test code = 2231) 145 MEQ/L POTASSIUM (test code = 2228) 4.1 MEQ/L CHLORIDE (test code = 2215) 101 MEQ/L CARBON DIOXIDE (test code = 2206) 28 MEQ/L CALCIUM (test code = 2209) 10.0 MG/DL PROTEIN, TOTAL (test code = 2229) 7.2 G/DL ALBUMIN (test code = 2201) 4.7 G/DL CALC GLOBULIN (test code = 2240) 2.5 G/DL CALC A/G RATIO (test code = 2234) 1.9 RATIO BILIRUBIN, TOTAL (test code = 2207) 0.6 MG/DL ALKALINE PHOSPHATASE (test code = 2204) 59 U/L AST (test code = 2218) 21 U/L ALT (test code = 2219) 16 U/L Lazaro HughesTSH, THIRD [id number] 00:00:00* Test Item Value Reference Range Interpretation Comme nts TSH, THIRD GENERATION (test code = 2821) 0.262 UIU/ML Lazaro HughesLIPID [id number] 00:00:00* Test Item Value Reference Range Interpretation Comme nts CHOLESTEROL, TOTAL (test cod e = 2093-3) 233 mg/dL HDL CHOLESTEROL (test code = 2085-9) 77 mg/dL TRIGLYCERIDES (test code = 2571-8) 71 mg/dL LDL-CHOLESTEROL (test code = 66178-2) 139 mg/dL(calc) CHOL/HDLC RATIO (test code = 9830-1) 3.0 (calc) NON HDL CHOLESTEROL (test code = 67294-8) 156 mg/dL(calc) Lazaro HughesHIV 1/2 ANTIGEN/ANTIBODY,FOURTH GENERATION [id number] 00:00:00* Test Item Value Reference Range Interpretation Comme nts HIV AG/AB, 4TH GEN (test cod e = 64899-2) NON-REACTIVE Lazaro HughesCOMPREHENSIVE METABOLIC [id number] 00:00:00* Test Item Value Reference Range Interpretation Comme nts GLUCOSE (test code = 2345-7) 98 mg/dL UREA NITROGEN (BUN) (test code = 3094-0) 13 mg/dL CREATININE (test code = 2160-0) 0.98 mg/dL eGFR NON-AFR. SWEDISH (test code = 76857-7) 100 mL/min/1.73m2 eGFR (test code = 52035-4) 116 mL/min/1.73m2 BUN/CREATININE RATIO (test code = 3097-3) NOT APPLICABLE (calc) SODIUM (test code = 2951-2) 142 mmol/L POTASSIUM (test code = 2823-3) 4.0 mmol/L CHLORIDE (test code = 2075-0) 103 mmol/L CARBON DIOXIDE (test code = 2027-9) 30 mmol/L CALCIUM (test code = 15008-4) 9.7 mg/dL PROTEIN, TOTAL (test code = 2885-2) 7.3 g/dL ALBUMIN (test code = 1751-7) 4.6 g/dL GLOBULIN (test code = 07709-0) 2.7 g/dL(calc) ALBUMIN/GLOBULIN RATIO (test code = 1759-0) 1.7 (calc) BILIRUBIN, TOTAL (test code = 1975-2) 0.7 mg/dL ALKALINE PHOSPHATASE (test code = 6768-6) 56 U/L AST (test code = 1920-8) 24 U/L ALT (test code = 1742-6) 20 U/L Lazaro HughesHEMOGLOBIN [id number] 00:00:00* Test Item Value Reference Range Interpretation Comme [facility] HEMOGLOBIN A1c (test code = 4548-4) 5.6 %oftotalHgb Lazaro HughesCBC (INCLUDES DIFF/PLT)2020-09-29 00:00:00* Test Item Value Reference Range Interpretation Comme [facility] WHITE BLOOD CELL COUNT (test code = 6690-2) 5.4 Thousand/uL RED BLOOD CELL COUNT (test code = 789-8) 4.66 Million/uL HEMOGLOBIN (test code = 718-7) 15.0 g/dL HEMATOCRIT (test code = 4544-3) 44.5 % MCV (test code = 787-2) 95.5 fL MCH (test code = 785-6) 32.2 pg MCHC (test code = 786-4) 33.7 g/dL RDW (test code = 788-0) 13.8 % PLATELET COUNT (test code = 777-3) 304 Thousand/uL MPV (test code = 776-5) 10.8 fL ABSOLUTE NEUTROPHILS (test code = 751-8) 2959 cells/uL ABSOLUTE BAND NEUTROPHILS (test code = 84004-8) DNR cells/uL ABSOLUTE METAMYELOCYTES (abdias t code = 17200-8) DNR cells/uL ABSOLUTE MYELOCYTES (test code = 16663-8) DNR cells/uL ABSOLUTE PROMYELOCYTES (test code = 05442-1) DNR cells/uL ABSOLUTE LYMPHOCYTES (test code = 731-0) 1825 cells/uL ABSOLUTE MONOCYTES (test cod e = 742-7) 486 cells/uL ABSOLUTE EOSINOPHILS (test code = 711-2) 81 cells/uL ABSOLUTE BASOPHILS (test cod e = 704-7) 49 cells/uL ABSOLUTE BLASTS (test code = 33335-7) DNR cells/uL ABSOLUTE NUCLEATED RBC (test code = 23085-5) DNR cells/uL NEUTROPHILS (test code = 770-8) 54.8 % BAND NEUTROPHILS (test code = 764-1) DNR % METAMYELOCYTES (test code = 740-1) DNR % MYELOCYTES (test code = 749-2) DNR % PROMYELOCYTES (test code = 783-1) DNR % LYMPHOCYTES (test code = 736-9) 33.8 % REACTIVE LYMPHOCYTES (test code = 80133-9) DNR % MONOCYTES (test code = 5905-5) 9.0 % EOSINOPHILS (test code = 713-8) 1.5 % BASOPHILS (test code = 706-2) 0.9 % BLASTS (test code = 709-6) DNR % NUCLEATED RBC (test code = 17147-2) DNR /100WBC COMMENT(S) (test code = 8251-1) DNR Lazaro Bauer IQ(R) VITAMIN D, 25-HYDROXY, LC/[id number] 00:00:00 * Test Item Value Reference Range Interpretation Comme nts VITAMIN D, 25-OH, TOTAL (abdias t code = 59029-1) 7 ng/mL VITAMIN D, 25-OH, D3 (test c ode = 1989-) 7 ng/mL VITAMIN D, 25-OH, D2 (test c ode = 6-8) <4.0 ng/mL Lazaro HughesCOMPREHENSIVE METABOLIC [id number] 00:00:00* Test Item Value Reference Range Interpretation Comme nts GLUCOSE (test code = 2217) 97 MG/DL BUN (test code = 2208) 9 MG/DL CREATININE (test code = 2214) 1.04 MG/DL eGFR AMER. (test cod e = 69339) 110 ML/MIN/1.73 eGFR NON- AMER. (test code = 47272) 95 ML/MIN/1.73 CALC BUN/CREAT (test code = 2235) 9 RATIO SODIUM (test code = 2231) 146 MEQ/L POTASSIUM (test code = 2228) 4.6 MEQ/L CHLORIDE (test code = 2215) 100 MEQ/L CARBON DIOXIDE (test code = 2206) 26 MEQ/L CALCIUM (test code = 2209) 9.9 MG/DL PROTEIN, TOTAL (test code = 222) 7.4 G/DL ALBUMIN (test code = 2201) 4.8 G/DL CALC GLOBULIN (test code = 2240) 2.6 G/DL CALC A/G RATIO (test code = 2234) 1.8 RATIO BILIRUBIN, TOTAL (test code = 2207) 0.4 MG/DL ALKALINE PHOSPHATASE (test code = 2204) 54 U/L AST (test code = 2218) 22 U/L ALT (test code = 2219) 18 U/L Lazaro [id number] 00:00:00* Test Item Value Reference Range Interpretation Comme nts TSH (test code = 2821) 0.330 UIU/ML Lazaro HughesLIPID [id number] 00:00:00* Test Item Value Reference Range Interpretation Comme nts CHOLESTEROL (test code = 2210) 186 MG/DL TRIGLYCERIDES (test code = 2232) 54 MG/DL HDL CHOLESTEROL (test code = 2220) 65 MG/DL CALC LDL CHOL (test code = 2237) 110 MG/DL RISK RATIO LDL/HDL (test cod e = 223) 1.70 RATIO Lazaro HughesHEMOGLOBIN [id number] 00:00:00* Test Item Value Reference Range Interpretation Comme nts HEMOGLOBIN A1c (test code = 68400) 5.6 % Lazaro HughesCBC W/AUTO [id number] 00:00:00* Test Item Value Reference Range Interpretation Comme nts WBC (test code = 1001) 6.7 K/UL RBC (test code = 1002) 4.68 M/UL HEMOGLOBIN (test code = 1003) 15.0 G/DL HEMATOCRIT (test code = 1004) 43.5 % MCV (test code = 1005) 92.9 fL MCH (test code = 1006) 32.1 PG MCHC (test code = 1007) 34.5 G/DL RDW (test code = 1038) 13.5 % NEUTROPHILS (test code = 1008) 52.3 % LYMPHOCYTES (test code = 1010) 36.8 % MONOCYTES (test code = 1011) 7.9 % EOSINOPHILS (test code = 1012) 1.8 % BASOPHILS (test code = 1013) 1.2 % PLATELET COUNT (test code = 1015) 307 K/UL Lazaro Bella SaulTHYROID II PROFILE (T3U, T4, T7, TSH)2016-03-31 00:00:00* Test Item Value Reference Range Interpretation Comme nts T3 UPTAKE (test code = 2817) 27.0 % T4 (THYROXINE) (test code = 2819) 7.5 UG/DL CALCULATED T7 (FTI) (test co de = 2820) 2.03 TSH (test code = 2821) 0.2 UIU/ML Lazaro Bella SaulCOMPREHENSIVE METABOLIC [id number] 00:00:00* Test Item Value Reference Range Interpretation Comme nts GLUCOSE (test code = 2217) 90 MG/DL BUN (test code = 2208) 12 MG/DL CREATININE (test code = 2214) 1.01 MG/DL eGFR AMER. (test cod e = 91341) 116 ML/MIN/1.73 eGFR NON- AMER. (test code = 67523) 100 ML/MIN/1.73 CALC BUN/CREAT (test code = 2235) 12 RATIO SODIUM (test code = 2231) 141 MEQ/L POTASSIUM (test code = 2228) 4.4 MEQ/L CHLORIDE (test code = 2215) 99 MEQ/L CARBON DIOXIDE (test code = 2206) 26 MEQ/L CALCIUM (test code = 2209) 10.1 MG/DL PROTEIN, TOTAL (test code = 2229) 8.1 G/DL ALBUMIN (test code = 2201) 4.9 G/DL CALC GLOBULIN (test code = 2240) 3.2 G/DL CALC A/G RATIO (test code = 2234) 1.5 RATIO BILIRUBIN, TOTAL (test code = 2207) 0.5 MG/DL ALKALINE PHOSPHATASE (test code = 2204) 47 U/L AST (test code = 2218) 21 U/L ALT (test code = 2219) 17 U/L Lazaro HughesTHYROID II PROFILE (T3U, T4, T7, TSH)2015-11-06 00:00:00* Test Item Value Reference Range Interpretation Comme nts T3 UPTAKE (test code = 2817) 28.0 % T4 (THYROXINE) (test code = 2819) 7.2 UG/DL CALCULATED T7 (FTI) (test co de = 2820) 2.02 TSH (test code = 2821) 0.2 UIU/ML Lazaro [id number] 00:00:00* Test Item Value Reference Range Interpretation Comme nts TSH (test code = 2821) 0.3 UIU/ML Lazaro HughesCOMPREHENSIVE METABOLIC [id number] 00:00:00* Test Item Value Reference Range Interpretation Comme nts GLUCOSE (test code = 2217) 88 MG/DL BUN (test code = 2208) 10 MG/DL CREATININE (test code = 2214) 0.92 MG/DL eGFR AMER. (test cod e = 23599) 130 ML/MIN/1.73 eGFR NON- AMER. (test code = 75168) 112 ML/MIN/1.73 CALCULATED BUN/CREAT (test code = 2235) 11 RATIO SODIUM (test code = 2231) 139 MEQ/L POTASSIUM (test code = 2228) 4.1 MEQ/L CHLORIDE (test code = 2215) 105 MEQ/L CARBON DIOXIDE (test code = 2206) 27 MEQ/L CALCIUM (test code = 2209) 9.3 MG/DL PROTEIN, TOTAL (test code = 2229) 7.3 G/DL ALBUMIN (test code = 2201) 4.3 G/DL CALCULATED GLOBULIN (test code = 2240) 3.0 G/DL CALCULATED A/G RATIO (test code = 2234) 1.4 RATIO BILIRUBIN, TOTAL (test code = 2207) 0.3 MG/DL ALKALINE PHOSPHATASE (test code = 2204) 40 U/L SGOT (AST) (test code = 2218) 18 U/L SGPT (ALT) (test code = 2219) 14 U/L Lazaro HughesLIPID [id number] 00:00:00* Test Item Value Reference Range Interpretation Comme nts CHOLESTEROL (test code = 2210) 186 MG/DL TRIGLYCERIDES (test code = 2232) 57 MG/DL HDL CHOLESTEROL (test code = 2220) 60 MG/DL CALCULATED LDL CHOL (test co de = 2237) 115 MG/DL RISK RATIO LDL/HDL (test cod e = 2238) 1.91 RATIO Lazaro HughesCBC W/AUTO [id number] 00:00:00* Test Item Value Reference Range Interpretation Comme nts WBC (test code = 1001) 5.3 K/UL RBC (test code = 1002) 4.62 M/UL HEMOGLOBIN (test code = 1003) 14.5 G/DL HEMATOCRIT (test code = 1004) 42.5 % MCV (test code = 1005) 92.0 fL MCH (test code = 1006) 31.4 PG MCHC (test code = 1007) 34.1 G/DL RDW (test code = 1038) 14.9 % NEUTROPHILS (test code = 1008) 56 % LYMPHOCYTES (test code = 1010) 25 % MONOCYTES (test code = 1011) 17 % EOSINOPHILS (test code = 1012) 2 % BASOPHILS (test code = 1013) 1 % PLATELET COUNT (test code = 1015) 292 K/UL Lazaro HughesHEMOGLOBIN [id number] 00:00:00* Test Item Value Reference Range Interpretation Comme nts HEMOGLOBIN A1c (test code = 26876) 5.8 % Lazaro Bella [id number] 00:00:00* Test Item Value Reference Range Interpretation Comme nts TSH (test code = 2821) 0.3 UIU/ML Lazaro Hughes Notes Date/Time Note Provider Source Lazaro Hughes [facility]
--- NOTE | 2024-12-31 12:22 | EDPHYS ---
Physician Documentation [facility] Name: Mika Alvarado Age: 39 yrs Sex: Male : 1985 Arrival Date: 12/31/2024 Time: 10:41 Bed 11 Private MD: ED Physician Tomi Rosario HPI: 12/31 13:09 This 39 yrs old Black Male presents to ER via Ambulatory with complaints of Flu sb4 Symptoms. 13:09 Sinus congestion, ear fullness, cough, sore throat x 5 days. States there are several sb4 sick contacts in the house. Additionally, he states he is out of his blood pressure medications and requesting refill. Denies any fever or chills. Denies any nausea, vomiting, diarrhea. Historical: - Allergies: 11:00 No Known Allergies; ap3 - PMHx: 11:00 Hypertension; ap3 - Immunization history:: Client reports having NOT received the Covid vaccine. Flu vaccine is not up to date. - Infectious Disease History:: Denies. - Social history:: Smoking status: Patient reports the use of cigarette tobacco products, smokes one-half pack cigarettes per day. ROS: 13:09 Constitutional: Negative for fever, chills, and weight loss, sb4 13:09 ENT: Positive for ear pain, sinus congestion, sinus pain, sore throat, Per HPI, 13:09 Respiratory: Positive for cough, 13:09 All other systems are negative, Exam: 13:09 Cardiovascular: Regular rate and rhythm with a normal S1 and S2. Respiratory: No sb4 increased work of breathing, no retractions or nasal flaring. Abdomen/GI: Soft, non-tender, no distension. Skin: Warm, dry with normal turgor. Normal color with no rashes, no lesions, and no evidence of cellulitis. 13:09 Constitutional: The patient appears in no acute distress, alert, awake, 13:09 Head/face: Sinus tenderness, that is mild, 13:09 ENT: TM's: fluid levels, on the right, Examination of the other ear shows no obvious abnormality, Posterior pharynx: no acute changes, 13:09 Respiratory: Breath sounds: are clear throughout, Vital Signs: 10:58 BP 152 / 92; Pulse 91; Resp 17; Temp 97.9; Pulse Ox 100% ; Weight 102.06 kg; Height 5 ap3 ft. 9 in. ; Pain 8/10; 12:48 BP 148 / 95; Pulse 85; Resp 16; Temp 98.3; Pulse Ox 99% on R/A; dd2 10:58 Body Mass Index 33.23 (102.06 kg, 175.26 cm) ap3 10:58 Pain Scale: Adult ap3 [place] Coma Score: 12:31 Eye Response: spontaneous(4). Motor Response: obeys commands(6). Verbal Response: dd2 oriented(5). Total: 15. MDM: 11:04 Medical Screening Exam initiated sb4 13:09 Data reviewed: vital signs, nurses notes, and as a result, I will discharge patient. sb4 Care significantly affected by the following chronic conditions: Hypertension. Counseling: I had a detailed discussion with the patient and/or guardian regarding the historical points, exam findings, and any diagnostic results supporting the discharge/admit diagnosis, the presence of at least one elevated blood pressure reading (>120/80) during this emergency department visit, the need for outpatient follow up, for definitive care, to return to the emergency department if symptoms worsen or persist or if there are any questions or concerns that arise at home. Administered Medications: No medications were administered Disposition: 17:10 Co-signature as Attending Physician, Tomi Rosario MD. [email or web address] Disposition Summary: 12/31/24 12:21 Discharge Ordered Notes: Location: Home sb4 Problem: an ongoing problem sb4 Symptoms: are unchanged sb4 Condition: Stable sb4 Diagnosis - Acute frontal sinusitis sb4 - Essential (primary) hypertension sb4 Followup: sb4 - With: Private Physician - When: 1 week - Reason: Recheck today's complaints, Re-evaluation by your physician Discharge Instructions: - Discharge Summary Sheet sb4 - Hypertension, Adult sb4 - Sinusitis, Adult, [id number] sb4 - How to Perform a Sinus Rinse, [id number] sb4 Forms: - Antibiotic Education sb4 - Patient Portal Instructions sb4 - Leadership Thank You Letter sb4 - Work release form dd2 Prescriptions: - amlodipine 10 mg Oral tablet - take 1 tablet ORAL route daily; 30 tablet; Refills: 0, Product Selection sb4 Permitted - Augmentin 875-125 mg Oral Tablet - take 1 tablet ORAL route every 12 hours for 10 days; 20 tablet; Refills: 0, sb4 Product Selection Permitted - Prednisone 20 mg Oral Tablet - take 1 tablet ORAL route once daily for 5 days; 5 tablet; Refills: 0, Product sb4 Selection Permitted Signatures: Mary Krishnamurthy RN RN ap3 Elizabeth Ferro PA-C PA-C sb4 Tomi Rosario MD MD [email or web address]
--- NOTE | 2024-12-31 12:22 | ER ---
Nurse's Notes [facility] Name: Mika Alvarado Age: 39 yrs Sex: Male : 1985 Arrival Date: 12/31/2024 Time: 10:41 Bed 11 Private MD: Diagnosis: Acute frontal sinusitis;Essential (primary) hypertension Presentation: 12/31 10:58 Chief complaint: Patient states: he has been having body aches, ear ache, throat pain, ap3 and feeling like his ears are muffled since last Tuesday. patient currently rates his pain as a 8/10 on the pain scale. Coronavirus screen: Client presents with at least one sign or symptom that may indicate coronavirus-19. Ebola Screen: No symptoms or risks identified at this time. Initial Sepsis Screen: Does the patient meet any 2 criteria? No. Patient's initial sepsis screen is negative. Does the patient have a suspected source of infection? No. Patient's initial sepsis screen is negative. Risk Assessment: Do you want to hurt yourself or someone else? Patient reports no desire to harm self or others. Onset of symptoms was December 26, 2024. 10:58 Method Of Arrival: Ambulatory ap3 10:58 Acuity: MAMADOU 3 ap3 Triage Assessment: 11:00 General: Appears ill, Behavior is calm, cooperative, appropriate for age, Reports ap3 chills for fever for feeling ill for fatigue for. Pain: Complains of pain in generlized body aches. EENT: Reports decreased hearing in right ear pain when swallowing. Neuro: Level of Consciousness is awake, alert, obeys commands, Oriented to person, place, time, situation, Appropriate for age. Cardiovascular: Patient's skin is warm and dry. Respiratory: Reports cough that is Airway is patent Respiratory effort is even, unlabored, Respiratory pattern is regular, symmetrical. Historical: - Allergies: 11:00 No Known Allergies; ap3 - PMHx: 11:00 Hypertension; ap3 - Immunization history:: Client reports having NOT received the Covid vaccine. Flu vaccine is not up to date. - Infectious Disease History:: Denies. - Social history:: Smoking status: Patient reports the use of cigarette tobacco products, smokes one-half pack cigarettes per day. Screenin:01 [facility] ED Fall Risk Assessment (Adult) History of falling in the last 3 months, ap3 including since admission No falls in past 3 months (0 pts) Confusion or Disorientation No (0 pts) Intoxicated or Sedated No (0 pts) Impaired Gait No (0 pts) Mobility Assist Device Used No (0 pt) Altered Elimination No (0 pt) Score/Fall Risk Level 0 - 2 = Low Risk Oriented to surroundings, Maintained a safe environment, Educated pt \T\ family on fall prevention, incl call for assistance when getting out of bed, Assessed \T\ reinforced patient's understanding of fall precautions, Hourly rounding (assess needs \T\ fall precautionary measures) done, Used ambulatory aids as needed (educated on \T\ assisted with). Abuse screen: Denies threats or abuse. Nutritional screening: No deficits noted. Tuberculosis screening: No symptoms or risk factors identified. Assessment: 12:31 General: Appears in no apparent distress. comfortable, Behavior is calm, cooperative, dd2 appropriate for age. Pain: Complains of pain in right ear, GENERALIZED BODY. Neuro: No deficits noted. Cardiovascular: No deficits noted. Respiratory: Reports cough that is non-productive. GI: No deficits noted. : No deficits noted. No signs and/or symptoms were reported regarding the genitourinary system. EENT: Throat is clear Reports difficulty swallowing pain in right ear. Derm: No deficits noted. Musculoskeletal: Circulation, motion, and sensation intact. Range of motion: intact in all extremities, Reports pain in GENERALIZED BODYACHES. Vital Signs: 10:58 BP 152 / 92; Pulse 91; Resp 17; Temp 97.9; Pulse Ox 100% ; Weight 102.06 kg; Height 5 ap3 ft. 9 in. ; Pain 8/10; 12:48 BP 148 / 95; Pulse 85; Resp 16; Temp 98.3; Pulse Ox 99% on R/A; dd2 10:58 Body Mass Index 33.23 (102.06 kg, 175.26 cm) ap3 10:58 Pain Scale: Adult ap3 [place] Coma Score: 12:31 Eye Response: spontaneous(4). Motor Response: obeys commands(6). Verbal Response: dd2 oriented(5). Total: 15. ED Course: 10:43 Patient arrived in ED. im 11:00 Triage completed. ap3 11:01 Arm band placed on right wrist. ap3 11:04 [facility] sb4 11:04 Tomi Rosario MD is Attending Physician. sb4 12:31 Patient has correct armband on for positive identification. Bed in low position. Call dd2 light in reach. Client placed on continuous cardiac and pulse oximetry monitoring. NIBP monitoring applied. Door closed. Noise minimized. Pillow given. Verbal reassurance given. 12:31 No provider procedures requiring assistance completed. Patient did not have IV access dd2 during this emergency room visit. 12:40 JUAN LUIS NICHOLS, RN is Primary Nurse. dd2 12:48 Provided Education on: D/C EDUCATION. dd2 Administered Medications: No medications were administered Medication: 12:31 VIS not applicable for this client. dd2 Outcome: 12:21 Discharge ordered by MD. sb4 12:48 Discharged to home ambulatory, dd2 12:48 Condition: stable 12:48 Discharge instructions given to patient, Instructed on discharge instructions, follow up and referral plans. medication usage, Demonstrated understanding of instructions, follow-up care, medications, 12:48 Prescriptions given X 3, 12:49 Patient left the ED. dd2 Signatures: Mary Krishnamurthy, RN RN ap3 Elizabeth Ferro PA-C PACarson sb4 Tashia Rockwell DIANA, RN RN dd2
[2024-12-31 14:04] VITALS: BP 148/95; TEMP 98.3; O2SAT 99
== END 2024-12-31 12:49 | disposition home or self-care (01) ==
LOC: ER 10:41
DX: J01.10 Acute frontal sinusitis, unspecified (principal); I10 Essential (primary) hypertension; F17.210 Nicotine dependence, cigarettes, uncomplicated
CPT/HCPCS: 99283